=== PATIENT | male | born 1970 | race Caucasian/White ===

== ENCOUNTER 2016-11-19 16:15 | Inpatient (IN) | payer SELFPAY ==
[~2016-11-19] VITALS: Ht 175.3 cm; Wt 133.6 kg
--- NOTE | 2016-11-19 17:28 | PHYS DOC ---
Past Medical History Past Medical History: Diabetes-Type II Past Surgical History: Other Additional Past Surgical Histo: L hand,face reconstruction,bunion removed R great toe Alcohol Use: Occasionally Drug Use: None Adult General Chief Complaint Chief Complaint: ABSCESS HPI HPI Patient is a 45 year old M who presents with abscess to the right buttock. Patient states he's diabetic with blood sugars running between 200-300 and has a draining abscess to the right buttock that increased in size and pain. Patient states he's had fevers and chills for the past couple days. Patient denies any nausea/vomiting/diarrhea. Patient has no other symptoms. Review of Systems Review of Systems GEN: Denies fevers, chills, sweats HEENT: Denies blurred vision, sore throat CV: Denies chest pain RESP: Denies shortness of air, cough GI: Denies n/v/d NEURO: Denies confusion, dizziness MSK: Denies weakness, joint pain/swelling SKIN: Abscess to right buttock Current Medications Current Medications Current Medications Medications (Trade) Dose Ordered Sig/Janelle Start Time Stop Time Status Last Admin Dose Admin Fentanyl Citrate (Fentanyl 2ml Vial) 100 mcg STK-MED ONCE 11/19/16 18:38 11/19/16 18:39 DC Vancomycin HCl (Vanco Per Pharmacy) 1 each PRN DAILY PRN 11/19/16 17:15 11/19/16 19:05 1 EACH Vancomycin HCl 2 gm/Sodium Chloride 500 ml @ 250 mls/hr 1X ONCE 11/19/16 17:30 11/19/16 19:29 DC 11/19/16 17:48 250 MLS/HR Allergies Allergies Allergies Coded Allergies Type Severity Reaction Last Updated Verified No Known Drug Allergies 11/19/16 No Physical Exam Physical Exam GEN.: No apparent distress. Alert and oriented. HEENT: Head is normocephalic, atraumatic NECK: Supple. LUNGS: CTAB. HEART: RRR, S1, S2 present. Peripheral pulses intact ABDOMEN: Soft, nontender. Positive bowel sounds. EXTREMITIES: Without any cyanosis. NEUROLOGIC: Normal speech, normal tone PSYCHIATRIC: Normal affect, normal mood. SKIN: No ulcerations, abscess to the right buttock with approximately 8 cm of induration with tenderness palpation central drainage with purulent material coming out, no appreciable area of fluctuance Current Patient Data Vital Signs Vital Signs Date Time Temp Pulse Resp B/P (MAP) Pulse Ox O2 Delivery O2 Flow Rate FiO2 11/19/16 18:44 20 97 Room Air 11/19/16 18:20 90 133/86 (102) 11/19/16 16:20 98.1 98.1 Lab Values Laboratory Tests Test 11/19/16 17:22 White Blood Count 22.6 x10^3/uL (4.0-11.0) H Red Blood Count 4.87 x10^6/uL (4.30-5.70) Hemoglobin 14.2 g/dL (13.0-17.5) Hematocrit 42.4 % (39.0-53.0) Mean Corpuscular Volume 87 fL (79-100) Mean Corpuscular Hemoglobin 29 pg (25-35) Mean Corpuscular Hemoglobin Concent 34 g/dL (31-37) Red Cell Distribution Width 13.2 % (11.5-14.5) Platelet Count 213 x10^3/uL (140-400) Neutrophils (%) (Auto) 80 % (31-73) H Lymphocytes (%) (Auto) 9 % (24-48) L Monocytes (%) (Auto) 10 % (0-9) H Eosinophils (%) (Auto) 0 % (0-3) Basophils (%) (Auto) 1 % (0-3) Neutrophils # (Auto) 18.2 x10^3uL (1.8-7.7) H Lymphocytes # (Auto) 2.0 x10^3/uL (1.0-4.8) Monocytes # (Auto) 2.2 x10^3/uL (0.0-1.1) H Eosinophils # (Auto) 0.0 x10^3/uL (0.0-0.7) Basophils # (Auto) 0.2 x10^3/uL (0.0-0.2) Segmented Neutrophils % 73 % (35-66) H Band Neutrophils % 9 % (0-9) Lymphocytes % 8 % (24-48) L Monocytes % 9 % (0-10) Basophils % 1 % (0-3) Toxic Granulation Slight Platelet Estimate Adequate (ADEQUATE) Sodium Level 134 mmol/L (136-145) L Potassium Level 3.4 mmol/L (3.5-5.1) L Chloride Level 96 mmol/L (98-107) L Carbon Dioxide Level 28 mmol/L (21-32) Anion Gap 10 (6-14) Blood Urea Nitrogen 11 mg/dL (8-26) Creatinine 1.0 mg/dL (0.7-1.3) Estimated GFR (Cockcroft-Gault) 81.2 BUN/Creatinine Ratio 11 (6-20) Glucose Level 272 mg/dL (70-99) H Lactic Acid Level 2.0 mmol/L (0.4-2.0) Calcium Level 8.9 mg/dL (8.5-10.1) Total Bilirubin 1.0 mg/dL (0.2-1.0) Aspartate Amino Transferase (AST) 9 U/L (15-37) L Alanine Aminotransferase (ALT) 21 U/L (16-63) Alkaline Phosphatase 103 U/L (46-116) Total Protein 7.6 g/dL (6.4-8.2) Albumin 2.8 g/dL (3.4-5.0) L Albumin/Globulin Ratio 0.6 (1.0-1.7) L Laboratory Tests 11/19/16 17:22 Laboratory Tests 11/19/16 17:22 EKG EKG [] Radiology/Procedures Radiology/Procedures [] Course & Med Decision Making Course & Med Decision Making Pertinent Labs and Imaging studies reviewed. (See chart for details) ED course: Patient was seen and examined emergency room septic workup was ordered After evaluating the abscess is already draining there is no area of fluctuance that needs an I&D at this time patient will be worked up from a septic standpoint secondary to his diabetes and high risk 1840: Discussed CC/HP/PMH with Dr. Streeter and recommends admit and consult surgery 1850: Discussed CC/HP/PMH with Dr. Collins and recommends nothing by mouth after midnight and will take to the OR the morning, he did not want a CT scan or ultrasound of the abscess at this time. MDM: After reviewing the chart, CC/HPI/PMH, physical exam, [lab results], [ radiological results], the patient has a significant right buttock abscess is requiring admission and I&D by surgery. Patient was started on vancomycin. [] Dragon Disclaimer Dragon Disclaimer This electronic medical record was generated, in whole or in part, using a voice recognition dictation system. Departure Departure Impression: Primary Impression: Abscess of right buttock Additional Impression: Leukocytosis Disposition: 09 ADMITTED INPATIENT Admitting Physician: Other (Dr. Streeter) Condition: STABLE Referrals: JULIO JOAQUIN (PCP) Problem Qualifiers AMISH SOFIA DO Nov 19, 2016 17:28
[2016-11-19] MEDS ORDERED: VANCOMYCIN 2 GM in IV NORMAL SALINE 500ML BAG 500 ML IV ONE (17:30)
[2016-11-19 17:32] LABS: BASO # 0.2 x10^3/uL (0.0-0.2); BASO % 1 % (0-3); EOS % 0 % (0-3); HEMATOCRIT 42.4 % (39.0-53.0); HEMOGLOBIN 14.2 g/dL (13.0-17.5); LYMPH % 9 % (24-48); MEAN CORPUSCULAR HEMOGLOBIN 29 pg (25-35); MEAN CORPUSCULAR HGB CONC 34 g/dL (31-37); MEAN CORPUSCULAR VOLUME 87 fL (79-100); MONO % 10 % (0-9); NEUT % 80 % (31-73); PLATELET COUNT 213 x10^3/uL (140-400); RED BLOOD COUNT 4.87 x10^6/uL (4.30-5.70); RED CELL DISTRIBUTION WIDTH 13.2 % (11.5-14.5); WHITE BLOOD COUNT 22.6 x10^3/uL (4.0-11.0)
[2016-11-19 17:48] LABS: CALCIUM 8.9 mg/dL (8.5-10.1); GFR 81.2; POTASSIUM 3.4 mmol/L (3.5-5.1)
[2016-11-19 17:53] LABS: ALBUMIN 2.8 g/dL (3.4-5.0); ALBUMIN/GLOBULIN RATIO 0.6 (1.0-1.7); TOTAL PROTEIN 7.6 g/dL (6.4-8.2)
[2016-11-19 18:08] LABS: % BASOS 1 % (0-3); PLT ESTIMATE ADEQUATE (ADEQUATE); TOXIC GRANULATION SLIGHT
[2016-11-19] MEDS ORDERED: fentaNYL PF VIAL 100 MCG/2 ML VIAL ONE (18:38)
[2016-11-19] MEDS ORDERED: fentaNYL PF VIAL 100 MCG/2 ML VIAL IV ONE (18:45)
[2016-11-19] MEDS: VANCOMYCIN PER PHARMACY MC PRN (19:05)
[2016-11-19] MEDS ORDERED: MORPHINE SULFATE 4 MG/ML DISP.SYRIN. IV PRN ×2 (19:15→20:15)
[2016-11-19] MEDS ORDERED: ONDANSETRON PF 4 MG/2 ML VIAL. IV PRN (19:15)
[2016-11-19] MEDS ORDERED: DEXTROSE 50% 25 GM / 50ML DISP.SYRIN. IV PRN (20:15)
[2016-11-19] MEDS ORDERED: oxyCODONE/APAP 10/325 1 TAB TABLET PO PRN (20:15)
--- NOTE | 2016-11-19 20:46 | HP ---
ADMIT DATE: 11/19/2016 CHIEF COMPLAINT: Right buttock pain. HISTORY OF PRESENT ILLNESS: The patient is a 45-year-old obese gentleman with past medical history of diabetes who presented to the Emergency Room with a 4-day history of buttock pain. He relates that this started fairly suddenly on . Last day he had a small pimple that he popped in the area on Saturday. The pain got worse and worse and he finally decided to come to the Emergency Room. He affirms having had subjective fevers as well as chills. Denies any sweats, feels ill as if he is getting a flu for the past day or so. He relates that the area actually has been draining significantly. Denies any significant amount of blood with this, however. PAST MEDICAL HISTORY: Diabetes mellitus, hypertension, hypercholesterolemia, has been only on metformin due to lack of insurance. FAMILY HISTORY: Positive for diabetes, CAD. SOCIAL HISTORY: He is , currently without a job. No toxic habits. ALLERGIES: No known drug allergies. MEDICATIONS: MAR reconciled with home meds. REVIEW OF SYSTEMS: Positive as per HPI. Rest of organ system review is negative. PHYSICAL EXAMINATION: VITAL SIGNS: From today show a blood pressure of 133/86, heart rate of 90, respiratory rate at 20. He is afebrile. GENERAL: This is a 45-year-old morbidly obese gentleman, alert and oriented, in mild distress. HEENT: Shows no scleral icterus. NECK: Supple. LUNGS: Clear to auscultation bilaterally. HEART: Regular rate and rhythm. ABDOMEN: Obese, positive bowel sounds. Right buttock shows indurated area of approximately 5 cm surrounded by a large area of erythema, drainage site medially with yellow pus. EXTREMITIES: Show no edema. SKIN: Warm, soft, and dry without any rash. LABORATORY DATA: CBC with a WBC of 22.6, manual diff with 73% segmented neutrophils and 9% bands, hemoglobin at 14.2, platelets of 213. BUN and creatinine at 11 and 1.0. Electrolytes with sodium of 134, potassium 3.4. Normal LFTs. Albumin at 2.8. ASSESSMENT AND PLAN: The patient is a 45-year-old gentleman with right buttock abscess, now admitted for further management and care. Dr. Collins from surgery has been notified, will be evaluated tomorrow and probably requiring I and D. In the meantime, we will keep him on antibiotics with vancomycin. His symptoms generalized are consistent with SIRS, possible sepsis, although he does not display any hypotension or fevers at this time. Continue to monitor. For his diabetes, we will start insulin sliding scale for now. He does take metformin at home. Suspect that is not sufficient as he relates that his blood sugars are still in the upper 200s at home. Also, has been on hypertensive medications, which I suspect he needs not only for kidney protection as well as a statin. We will see if we can find medications that are fairly cheap for him. For prophylaxis, Lovenox will be started, but we will hold for tonight given plans for surgery in the morning. We will obtain hemoglobin A1c as well as lipid profile to further evaluate cardiac risk factors. AL AKERS MD DR: UR/nts JOB#: [id number] / [id number] JULIO Eric MD MTDD
[2016-11-19] MEDS: oxyCODONE/APAP 5/325 1 TAB TABLET PO PRN (20:49)
[2016-11-19 21:30] VITALS: BP 121/74
[2016-11-19] MEDS ORDERED: PANTOPRAZOLE 40 MG TABLET.DR. PO SCH (22:00)
[2016-11-19] MEDS ORDERED: INSULIN ASPART 300 UNITS/3 ML INSULN.PEN SQ ONE (22:15)
[2016-11-19] MEDS: PANTOPRAZOLE 40 MG TABLET.DR. PO SCH (22:22)
[2016-11-19 23:00] VITALS: BP 114/65
[2016-11-19] MEDS: ACETAMINOPHEN 325 MG TABLET. PO PRN (23:25)
[2016-11-20] VITALS (9 sets, daily range): BP systolic 109–138; BP diastolic 47–84
[2016-11-20] MEDS: oxyCODONE/APAP 5/325 1 TAB TABLET PO PRN ×3 (01:33→19:41)
[2016-11-20] MEDS: VANCOMYCIN 2 GM in IV NORMAL SALINE 500ML BAG 500 ML IV SCH ×3 (01:33→17:14)
[2016-11-20] MEDS: IV NORMAL SALINE 1000ML BAG 1,000 ML IV SCH ×3 (03:06→08:46)
[2016-11-20 05:19] LABS: BASO # 0.1 x10^3/uL (0.0-0.2); BASO % 0 % (0-3); EOS % 0 % (0-3); HEMATOCRIT 39.7 % (39.0-53.0); HEMOGLOBIN 13.9 g/dL (13.0-17.5); LYMPH # 1.7 x10^3/uL (1.0-4.8); LYMPH % 8 % (24-48); MEAN CORPUSCULAR HEMOGLOBIN 30 pg (25-35); MEAN CORPUSCULAR HGB CONC 35 g/dL (31-37); MEAN CORPUSCULAR VOLUME 86 fL (79-100); MONO % 9 % (0-9); NEUT % 83 % (31-73); PLATELET COUNT 185 x10^3/uL (140-400); RED BLOOD COUNT 4.63 x10^6/uL (4.30-5.70); RED CELL DISTRIBUTION WIDTH 12.7 % (11.5-14.5); WHITE BLOOD COUNT 21.7 x10^3/uL (4.0-11.0)
[2016-11-20 05:38] LABS: CALCIUM 8.6 mg/dL (8.5-10.1); GFR 81.2; POTASSIUM 3.7 mmol/L (3.5-5.1)
[2016-11-20] MEDS: ACETAMINOPHEN 325 MG TABLET. PO PRN (06:15)
[2016-11-20] MEDS: PANTOPRAZOLE 40 MG TABLET.DR. PO SCH ×2 (06:15→17:13)
[2016-11-20] MEDS: INSULIN ASPART 300 UNITS/3 ML INSULN.PEN SQ SCH ×3 (08:43→17:17)
[2016-11-20] MEDS ORDERED: IV RINGERS,LACTATED 1000ML 1,000 ML IV SCH (10:15)
[2016-11-20] MEDS ORDERED: PROCHLORPERAZINE 10 MG/2 ML VIAL. IV PRN (10:15)
[2016-11-20] MEDS ORDERED: fentaNYL PF VIAL 100 MCG/2 ML VIAL IV PRN (10:15)
[2016-11-20] MEDS ORDERED: LIDOCAINE 1% PF 2 ML VIAL. ID PRN (10:15)
[2016-11-20] MEDS ORDERED: ONDANSETRON PF 4 MG/2 ML VIAL. IV PRN (10:15)
[2016-11-20] MEDS ORDERED: MORPHINE SULFATE 4 MG/ML DISP.SYRIN. IV PRN (10:15)
[2016-11-20] MEDS ORDERED: SEVOFLURANE 61 TO 120 MINUTES. IH ONE (13:01)
[2016-11-20] MEDS ORDERED: MIDAZOLAM HCL/PF 2 MG/2 ML VIAL. ONE (13:03)
[2016-11-20] MEDS ORDERED: SUCCINYLCHOLINE 200 MG/10 ML VIAL. ONE (13:03)
[2016-11-20] MEDS ORDERED: fentaNYL PF VIAL 100 MCG/2 ML VIAL ONE ×2 (13:03→13:37)
[2016-11-20] MEDS ORDERED: DEXAMETHASONE SOD PHOS 20 MG/5 ML VIAL. ONE (13:04)
[2016-11-20] MEDS ORDERED: PROPOFOL 20 ML IV ONE (13:04)
[2016-11-20] MEDS ORDERED: ONDANSETRON PF 4 MG/2 ML VIAL. ONE (13:04)
[2016-11-20] MEDS ORDERED: LIDOCAINE 2% PF Vial for OR 5 ML VIAL. ONE (13:04)
--- NOTE | 2016-11-20 14:18 | PDOC ---
PROGRESS NOTES Chief Complaint Chief Complaint R buttock abscess ASSESSMENT AND PLAN: 1. R buttock abscess: s/p I&D earlier today. cont vanco. wound care in AM, prob switch to PO Abx 2. Pain control: IV/PO narcotics PRN. bowel regimen added. 3. Sepsis: leukocytosis, fevers, no hypotension or tachycardia. blood cultures pending. 4. DM2: poorly controlled at home with metformin only. Hgb 11.4. restart metformin, add glipizide. needs PCP F/U 5. HTN: restart DARÍO-I 6. Prophylaxis: PPI, lovenox in AM History of Present Illness History of Present Illness sore. no new issues Vitals Vitals Vital Signs Date Time Temp Pulse Resp B/P (MAP) Pulse Ox O2 Delivery O2 Flow Rate FiO2 11/20/16 11:24 98.9 111 20 126/83 97 Room Air 98.9 Physical Exam General: Alert, Cooperative, No acute distress Heart: Regular rate Lungs: Clear Abdomen: Normal bowel sounds, No tenderness Extremities: No clubbing, No edema Skin: Other (R buttock I&D covered w/gauze) Labs LABS Laboratory Tests Test 11/19/16 17:22 11/19/16 19:15 11/19/16 21:00 11/19/16 21:39 White Blood Count 22.6 x10^3/uL (4.0-11.0) Red Blood Count 4.87 x10^6/uL (4.30-5.70) Hemoglobin 14.2 g/dL (13.0-17.5) Hematocrit 42.4 % (39.0-53.0) Mean Corpuscular Volume 87 fL (79-100) Mean Corpuscular Hemoglobin 29 pg (25-35) Mean Corpuscular Hemoglobin Concent 34 g/dL (31-37) Red Cell Distribution Width 13.2 % (11.5-14.5) Platelet Count 213 x10^3/uL (140-400) Neutrophils (%) (Auto) 80 % (31-73) Lymphocytes (%) (Auto) 9 % (24-48) Monocytes (%) (Auto) 10 % (0-9) Eosinophils (%) (Auto) 0 % (0-3) Basophils (%) (Auto) 1 % (0-3) Neutrophils # (Auto) 18.2 x10^3uL (1.8-7.7) Lymphocytes # (Auto) 2.0 x10^3/uL (1.0-4.8) Monocytes # (Auto) 2.2 x10^3/uL (0.0-1.1) Eosinophils # (Auto) 0.0 x10^3/uL (0.0-0.7) Basophils # (Auto) 0.2 x10^3/uL (0.0-0.2) Segmented Neutrophils % 73 % (35-66) Band Neutrophils % 9 % (0-9) Lymphocytes % 8 % (24-48) Monocytes % 9 % (0-10) Basophils % 1 % (0-3) Toxic Granulation Slight Platelet Estimate Adequate (ADEQUATE) Sodium Level 134 mmol/L (136-145) Potassium Level 3.4 mmol/L (3.5-5.1) Chloride Level 96 mmol/L (98-107) Carbon Dioxide Level 28 mmol/L (21-32) Anion Gap 10 (6-14) Blood Urea Nitrogen 11 mg/dL (8-26) Creatinine 1.0 mg/dL (0.7-1.3) Estimated GFR (Cockcroft-Gault) 81.2 BUN/Creatinine Ratio 11 (6-20) Glucose Level 272 mg/dL (70-99) Hemoglobin A1c 11.4 % (4.8-5.6) Lactic Acid Level 2.0 mmol/L (0.4-2.0) 2.1 mmol/L (0.4-2.0) 1.8 mmol/L (0.4-2.0) Calcium Level 8.9 mg/dL (8.5-10.1) Total Bilirubin 1.0 mg/dL (0.2-1.0) Aspartate Amino Transf (AST/SGOT) 9 U/L (15-37) Alanine Aminotransferase (ALT/SGPT) 21 U/L (16-63) Alkaline Phosphatase 103 U/L (46-116) Total Protein 7.6 g/dL (6.4-8.2) Albumin 2.8 g/dL (3.4-5.0) Albumin/Globulin Ratio 0.6 (1.0-1.7) Glucose (Fingerstick) 264 mg/dL (70-99) Test 11/20/16 05:00 11/20/16 08:15 11/20/16 11:18 White Blood Count 21.7 x10^3/uL (4.0-11.0) Red Blood Count 4.63 x10^6/uL (4.30-5.70) Hemoglobin 13.9 g/dL (13.0-17.5) Hematocrit 39.7 % (39.0-53.0) Mean Corpuscular Volume 86 fL (79-100) Mean Corpuscular Hemoglobin 30 pg (25-35) Mean Corpuscular Hemoglobin Concent 35 g/dL (31-37) Red Cell Distribution Width 12.7 % (11.5-14.5) Platelet Count 185 x10^3/uL (140-400) Neutrophils (%) (Auto) 83 % (31-73) Lymphocytes (%) (Auto) 8 % (24-48) Monocytes (%) (Auto) 9 % (0-9) Eosinophils (%) (Auto) 0 % (0-3) Basophils (%) (Auto) 0 % (0-3) Neutrophils # (Auto) 18.1 x10^3uL (1.8-7.7) Lymphocytes # (Auto) 1.7 x10^3/uL (1.0-4.8) Monocytes # (Auto) 1.9 x10^3/uL (0.0-1.1) Eosinophils # (Auto) 0.0 x10^3/uL (0.0-0.7) Basophils # (Auto) 0.1 x10^3/uL (0.0-0.2) Sodium Level 134 mmol/L (136-145) Potassium Level 3.7 mmol/L (3.5-5.1) Chloride Level 97 mmol/L (98-107) Carbon Dioxide Level 27 mmol/L (21-32) Anion Gap 10 (6-14) Blood Urea Nitrogen 9 mg/dL (8-26) Creatinine 1.0 mg/dL (0.7-1.3) Estimated GFR (Cockcroft-Gault) 81.2 Glucose Level 244 mg/dL (70-99) Calcium Level 8.6 mg/dL (8.5-10.1) Glucose (Fingerstick) 238 mg/dL (70-99) 217 mg/dL (70-99) REUSCH,AL MD Nov 20, 2016 14:18
--- NOTE | 2016-11-20 14:21 | PDOC ---
BRIEF OPERATIVE NOTE Date: Nov 20, 2016 Pre-Op Diagnosis gluteal abscess Post-Op Diagnosis same Procedure Performed incision and drainage Surgeon William Anesthesia Type: General Blood Loss 25cc IV Fluid 400cc Specimens Obtained cultures Findings tract up towards the base of the scrotum Complications none OPerative Note Wk # [id number] KRISHNA HERNÁNDEZ MD Nov 20, 2016 14:20
--- NOTE | 2016-11-20 14:28 | PDOC2 ---
CONSULT Date of Consult Date of Consult DATE: 11/20/16 TIME: 10:00 Reason for Consult Reason for Consult: gluteal abscess Referring Physician Referring Physician: Dr Streeter Identification/Chief Complaint Chief Complaint right butt pain Problems: Source Source: Chart review, Patient History of Present Illness Reason for Visit: Malvin is a 45 yo obese diabetic with a five day hx of right buttock pain and drainage. He denies any similar previous episodes Past Medical History Cardiovascular: HTN Pulmonary: No pertinent hx GI: No pertinent hx Hepatobiliary: Other (hypercholesterolemia) Endocrine: Diabetes Past Surgical History Past Surgical History: No pertinent history Family History Family History: Coronary Artery Disease, Diabetes Social History Quit (two weeks ago) ALCOHOL: none Current Problem List Problem List Problems Medical Problems: (1) Abscess of right buttock Status: Acute (2) Leukocytosis Status: Acute Current Medications Current Medications Current Medications Vancomycin HCl (Vanco Per Pharmacy) 1 each PRN DAILY PRN MC SEE COMMENTS Last administered on 11/19/16 19:05; Start 11/19/16 at 17:15 Vancomycin HCl 2 gm/Sodium Chloride 500 ml @ 250 mls/hr 1X ONCE IV Last administered on 11/19/16 17:48; Start 11/19/16 at 17:30; Stop 11/19/16 at 19:29 ; Status DC Fentanyl Citrate (Fentanyl 2ml Vial) 50 mcg 1X ONCE IV Last administered on 18:44; Start 11/19/16 at 18:45; Stop 11/19/16 at 18:46; Status DC Fentanyl Citrate (Fentanyl 2ml Vial) 100 mcg STK-MED ONCE .ROUTE ; Start at 18:38; Stop 11/19/16 at 18:39; Status DC Vancomycin HCl 2 gm/Sodium Chloride 500 ml @ 250 mls/hr Q8H IV Last administered on 11/20/16 08:44; Start 11/20/16 at 02:00 Vancomycin HCl 1 each 1X ONCE MC ; Start 11/20/16 at 17:30; Stop 11/20/16 at 17 :31 Ondansetron HCl (Zofran) 4 mg PRN Q8HRS PRN IV NAUSEA/VOMITING; Start 11/19/16 at 19:15; Stop 11/20/16 at 19:14 Morphine Sulfate 4 mg PRN Q2HR PRN IV PAIN; Start 11/19/16 at 19:15; Stop 11/19 at 20:14; Status DC Sodium Chloride 1,000 ml @ 125 mls/hr Q8H IV Last administered on 11/20/16 08 :46; Start 11/19/16 at 19:06; Stop 11/20/16 at 19:05 Acetaminophen (Tylenol) 650 mg PRN Q4HRS PRN PO FEVER Last administered on 11/20 06:15; Start 11/19/16 at 19:15; Stop 11/20/16 at 19:14 Morphine Sulfate 2 mg PRN Q2HR PRN IV PAIN - 2nd choice; Start 11/19/16 at 20: 15 Oxycodone/ Acetaminophen (Percocet 5/325) 1 tab PRN Q4HRS PRN PO Pain 5-7 Last administered on 11/20/16 06:15; Start 11/19/16 at 20:15 Oxycodone/ Acetaminophen (Percocet 10/325) 1 tab PRN Q4HRS PRN PO pain 8-10; Start 11/19/16 at 20:15 Insulin Aspart (NovoLOG) 0-9 UNITS TIDWMEALS SQ Last administered on 11/20/16 08:43; Start 11/20/16 at 08:00 Dextrose (Dextrose 50%-Water Syringe) 12.5 gm PRN Q15MIN PRN IV SEE COMMENTS; Start 11/19/16 at 20:15 Pantoprazole Sodium (Protonix) 20 mg BIDAC PO Last administered on 11/20/16 06 :15; Start 11/19/16 at 22:15 Insulin Aspart (NovoLOG) 4 units 1X ONCE SQ Last administered on 11/19/16 23: 30; Start 11/19/16 at 22:15; Stop 11/19/16 at 22:16; Status DC Pantoprazole Sodium (Protonix) 20 mg BID PO ; Start 11/19/16 at 22:00; Status UNV Ondansetron HCl (Zofran) 4 mg PRN Q6HRS PRN IV NAUSEA/VOMITING; Start 11/20/16 at 10:15; Stop 11/21/16 at 10:14 Fentanyl Citrate (Fentanyl 2ml Vial) 25 mcg PRN Q5MIN PRN IV MILD PAIN; Start 11/20/16 at 10:15; Stop 11/21/16 at 10:14 Fentanyl Citrate (Fentanyl 2ml Vial) 50 mcg PRN Q5MIN PRN IV MODERATE PAIN; Start 11/20/16 at 10:15; Stop 11/21/16 at 10:14 Morphine Sulfate 1 mg PRN Q10MIN PRN IV SEVERE PAIN; Start 11/20/16 at 10:15; Stop 11/21/16 at 10:14 Ringer's Solution 1,000 ml @ 30 mls/hr Q24H IV ; Start 11/20/16 at 10:15; Stop 11/20/16 at 22:14 Lidocaine HCl (Xylocaine-Mpf 1% Vial) 2 ml 1X PRN PRN ID IV START; Start at 10:15; Stop 11/21/16 at 10:14 Hydromorphone HCl (Dilaudid) 0.5 mg PRN Q10MIN PRN IV SEV PAIN, Second choice; Start 11/20/16 at 10:15; Stop 11/21/16 at 10:14 Prochlorperazine Edisylate (Compazine) 5 mg PACU PRN PRN IV NAUSEA, MRX1; Start 11/20/16 at 10:15; Stop 11/21/16 at 10:14 Sevoflurane (Ultane) 60 ml STK-MED ONCE IH ; Start 11/20/16 at 13:01; Stop 11/20 at 13:03; Status DC Midazolam HCl (Versed) 2 mg STK-MED ONCE .ROUTE ; Start 11/20/16 at 13:03; Stop 11/20/16 at 13:04; Status DC Fentanyl Citrate (Fentanyl 2ml Vial) 100 mcg STK-MED ONCE .ROUTE ; Start at 13:03; Stop 11/20/16 at 13:04; Status DC Succinylcholine Chloride (Anectine) 200 mg STK-MED ONCE .ROUTE ; Start 11/20/16 at 13:03; Stop 11/20/16 at 13:04; Status DC Propofol 20 ml @ As Directed STK-MED ONCE IV ; Start 11/20/16 at 13:04; Stop at 13:05; Status DC Lidocaine HCl (Lidocaine Pf 2% Vial) 5 ml STK-MED ONCE .ROUTE ; Start 11/20/16 at 13:04; Stop 11/20/16 at 13:05; Status DC Ondansetron HCl (Zofran) 4 mg STK-MED ONCE .ROUTE ; Start 11/20/16 at 13:04; Stop 11/20/16 at 13:05; Status DC Dexamethasone Sodium Phosphate (Decadron) 20 mg STK-MED ONCE .ROUTE ; Start at 13:04; Stop 11/20/16 at 13:05; Status DC Fentanyl Citrate (Fentanyl 2ml Vial) 100 mcg STK-MED ONCE .ROUTE ; Start at 13:37; Stop 11/20/16 at 13:38; Status DC Allergies Allergies: Coded Allergies: No Known Drug Allergies (Unverified , 11/19/16) ROS General: YES: Chills Physical Exam General: Alert, Oriented X3, Cooperative, Other (uncomfortable 2/2 right gluteal pain) Lungs: Other (occasional wheeze) Heart: Regular rate Abdomen: Soft, Other (obese) Vitals VITALS Vital Signs Date Time Temp Pulse Resp B/P (MAP) Pulse Ox O2 Delivery O2 Flow Rate FiO2 11/20/16 11:24 98.9 111 20 126/83 97 Room Air 98.9 Labs Labs Laboratory Tests Test 11/19/16 17:22 11/19/16 19:15 11/19/16 21:00 11/19/16 21:39 White Blood Count 22.6 x10^3/uL (4.0-11.0) Red Blood Count 4.87 x10^6/uL (4.30-5.70) Hemoglobin 14.2 g/dL (13.0-17.5) Hematocrit 42.4 % (39.0-53.0) Mean Corpuscular Volume 87 fL (79-100) Mean Corpuscular Hemoglobin 29 pg (25-35) Mean Corpuscular Hemoglobin Concent 34 g/dL (31-37) Red Cell Distribution Width 13.2 % (11.5-14.5) Platelet Count 213 x10^3/uL (140-400) Neutrophils (%) (Auto) 80 % (31-73) Lymphocytes (%) (Auto) 9 % (24-48) Monocytes (%) (Auto) 10 % (0-9) Eosinophils (%) (Auto) 0 % (0-3) Basophils (%) (Auto) 1 % (0-3) Neutrophils # (Auto) 18.2 x10^3uL (1.8-7.7) Lymphocytes # (Auto) 2.0 x10^3/uL (1.0-4.8) Monocytes # (Auto) 2.2 x10^3/uL (0.0-1.1) Eosinophils # (Auto) 0.0 x10^3/uL (0.0-0.7) Basophils # (Auto) 0.2 x10^3/uL (0.0-0.2) Segmented Neutrophils % 73 % (35-66) Band Neutrophils % 9 % (0-9) Lymphocytes % 8 % (24-48) Monocytes % 9 % (0-10) Basophils % 1 % (0-3) Toxic Granulation Slight Platelet Estimate Adequate (ADEQUATE) Sodium Level 134 mmol/L (136-145) Potassium Level 3.4 mmol/L (3.5-5.1) Chloride Level 96 mmol/L (98-107) Carbon Dioxide Level 28 mmol/L (21-32) Anion Gap 10 (6-14) Blood Urea Nitrogen 11 mg/dL (8-26) Creatinine 1.0 mg/dL (0.7-1.3) Estimated GFR (Cockcroft-Gault) 81.2 BUN/Creatinine Ratio 11 (6-20) Glucose Level 272 mg/dL (70-99) Hemoglobin A1c 11.4 % (4.8-5.6) Lactic Acid Level 2.0 mmol/L (0.4-2.0) 2.1 mmol/L (0.4-2.0) 1.8 mmol/L (0.4-2.0) Calcium Level 8.9 mg/dL (8.5-10.1) Total Bilirubin 1.0 mg/dL (0.2-1.0) Aspartate Amino Transf (AST/SGOT) 9 U/L (15-37) Alanine Aminotransferase (ALT/SGPT) 21 U/L (16-63) Alkaline Phosphatase 103 U/L (46-116) Total Protein 7.6 g/dL (6.4-8.2) Albumin 2.8 g/dL (3.4-5.0) Albumin/Globulin Ratio 0.6 (1.0-1.7) Glucose (Fingerstick) 264 mg/dL (70-99) Test 11/20/16 05:00 11/20/16 08:15 11/20/16 11:18 White Blood Count 21.7 x10^3/uL (4.0-11.0) Red Blood Count 4.63 x10^6/uL (4.30-5.70) Hemoglobin 13.9 g/dL (13.0-17.5) Hematocrit 39.7 % (39.0-53.0) Mean Corpuscular Volume 86 fL (79-100) Mean Corpuscular Hemoglobin 30 pg (25-35) Mean Corpuscular Hemoglobin Concent 35 g/dL (31-37) Red Cell Distribution Width 12.7 % (11.5-14.5) Platelet Count 185 x10^3/uL (140-400) Neutrophils (%) (Auto) 83 % (31-73) Lymphocytes (%) (Auto) 8 % (24-48) Monocytes (%) (Auto) 9 % (0-9) Eosinophils (%) (Auto) 0 % (0-3) Basophils (%) (Auto) 0 % (0-3) Neutrophils # (Auto) 18.1 x10^3uL (1.8-7.7) Lymphocytes # (Auto) 1.7 x10^3/uL (1.0-4.8) Monocytes # (Auto) 1.9 x10^3/uL (0.0-1.1) Eosinophils # (Auto) 0.0 x10^3/uL (0.0-0.7) Basophils # (Auto) 0.1 x10^3/uL (0.0-0.2) Sodium Level 134 mmol/L (136-145) Potassium Level 3.7 mmol/L (3.5-5.1) Chloride Level 97 mmol/L (98-107) Carbon Dioxide Level 27 mmol/L (21-32) Anion Gap 10 (6-14) Blood Urea Nitrogen 9 mg/dL (8-26) Creatinine 1.0 mg/dL (0.7-1.3) Estimated GFR (Cockcroft-Gault) 81.2 Glucose Level 244 mg/dL (70-99) Calcium Level 8.6 mg/dL (8.5-10.1) Glucose (Fingerstick) 238 mg/dL (70-99) 217 mg/dL (70-99) Laboratory Tests Test 11/19/16 17:22 11/19/16 19:15 11/19/16 21:00 11/19/16 21:39 White Blood Count 22.6 x10^3/uL (4.0-11.0) Red Blood Count 4.87 x10^6/uL (4.30-5.70) Hemoglobin 14.2 g/dL (13.0-17.5) Hematocrit 42.4 % (39.0-53.0) Mean Corpuscular Volume 87 fL (79-100) Mean Corpuscular Hemoglobin 29 pg (25-35) Mean Corpuscular Hemoglobin Concent 34 g/dL (31-37) Red Cell Distribution Width 13.2 % (11.5-14.5) Platelet Count 213 x10^3/uL (140-400) Neutrophils (%) (Auto) 80 % (31-73) Lymphocytes (%) (Auto) 9 % (24-48) Monocytes (%) (Auto) 10 % (0-9) Eosinophils (%) (Auto) 0 % (0-3) Basophils (%) (Auto) 1 % (0-3) Neutrophils # (Auto) 18.2 x10^3uL (1.8-7.7) Lymphocytes # (Auto) 2.0 x10^3/uL (1.0-4.8) Monocytes # (Auto) 2.2 x10^3/uL (0.0-1.1) Eosinophils # (Auto) 0.0 x10^3/uL (0.0-0.7) Basophils # (Auto) 0.2 x10^3/uL (0.0-0.2) Segmented Neutrophils % 73 % (35-66) Band Neutrophils % 9 % (0-9) Lymphocytes % 8 % (24-48) Monocytes % 9 % (0-10) Basophils % 1 % (0-3) Toxic Granulation Slight Platelet Estimate Adequate (ADEQUATE) Sodium Level 134 mmol/L (136-145) Potassium Level 3.4 mmol/L (3.5-5.1) Chloride Level 96 mmol/L (98-107) Carbon Dioxide Level 28 mmol/L (21-32) Anion Gap 10 (6-14) Blood Urea Nitrogen 11 mg/dL (8-26) Creatinine 1.0 mg/dL (0.7-1.3) Estimated GFR (Cockcroft-Gault) 81.2 BUN/Creatinine Ratio 11 (6-20) Glucose Level 272 mg/dL (70-99) Hemoglobin A1c 11.4 % (4.8-5.6) Lactic Acid Level 2.0 mmol/L (0.4-2.0) 2.1 mmol/L (0.4-2.0) 1.8 mmol/L (0.4-2.0) Calcium Level 8.9 mg/dL (8.5-10.1) Total Bilirubin 1.0 mg/dL (0.2-1.0) Aspartate Amino Transf (AST/SGOT) 9 U/L (15-37) Alanine Aminotransferase (ALT/SGPT) 21 U/L (16-63) Alkaline Phosphatase 103 U/L (46-116) Total Protein 7.6 g/dL (6.4-8.2) Albumin 2.8 g/dL (3.4-5.0) Albumin/Globulin Ratio 0.6 (1.0-1.7) Glucose (Fingerstick) 264 mg/dL (70-99) Test 11/20/16 05:00 11/20/16 08:15 11/20/16 11:18 White Blood Count 21.7 x10^3/uL (4.0-11.0) Red Blood Count 4.63 x10^6/uL (4.30-5.70) Hemoglobin 13.9 g/dL (13.0-17.5) Hematocrit 39.7 % (39.0-53.0) Mean Corpuscular Volume 86 fL (79-100) Mean Corpuscular Hemoglobin 30 pg (25-35) Mean Corpuscular Hemoglobin Concent 35 g/dL (31-37) Red Cell Distribution Width 12.7 % (11.5-14.5) Platelet Count 185 x10^3/uL (140-400) Neutrophils (%) (Auto) 83 % (31-73) Lymphocytes (%) (Auto) 8 % (24-48) Monocytes (%) (Auto) 9 % (0-9) Eosinophils (%) (Auto) 0 % (0-3) Basophils (%) (Auto) 0 % (0-3) Neutrophils # (Auto) 18.1 x10^3uL (1.8-7.7) Lymphocytes # (Auto) 1.7 x10^3/uL (1.0-4.8) Monocytes # (Auto) 1.9 x10^3/uL (0.0-1.1) Eosinophils # (Auto) 0.0 x10^3/uL (0.0-0.7) Basophils # (Auto) 0.1 x10^3/uL (0.0-0.2) Sodium Level 134 mmol/L (136-145) Potassium Level 3.7 mmol/L (3.5-5.1) Chloride Level 97 mmol/L (98-107) Carbon Dioxide Level 27 mmol/L (21-32) Anion Gap 10 (6-14) Blood Urea Nitrogen 9 mg/dL (8-26) Creatinine 1.0 mg/dL (0.7-1.3) Estimated GFR (Cockcroft-Gault) 81.2 Glucose Level 244 mg/dL (70-99) Calcium Level 8.6 mg/dL (8.5-10.1) Glucose (Fingerstick) 238 mg/dL (70-99) 217 mg/dL (70-99) Assessment/Plan Assessment/Plan gluteal abscess, cellulitis diabetes to OR for I and D. Discussed with Malvin and his , he will have an open wound that may require daily packing. He understands and will proceedl Thanks for the consult. KRISHNA HERNÁNDEZ MD Nov 20, 2016 14:28
[2016-11-20] MEDS: fentaNYL PF VIAL 100 MCG/2 ML VIAL IV PRN ×2 (14:36→14:48)
[2016-11-20 14:42] LABS: CHOLESTEROL/HDL RATIO 5.8
--- NOTE | 2016-11-20 14:50 | OP ---
DATE OF SURGERY: 11/20/2016 PREOPERATIVE DIAGNOSIS: Right gluteal abscess. POSTOPERATIVE DIAGNOSIS: Right gluteal abscess. PROCEDURE: Incision and drainage. SURGEON: Jamel Hernández MD ANESTHESIA: General. ESTIMATED BLOOD LOSS: 25. INTRAVENOUS FLUIDS: 400. INDICATIONS: The patient is a 45-year-old obese diabetic with pain, erythema, induration and minimal fluctuance on the right gluteal area. He was brought for incision and drainage. DESCRIPTION OF PROCEDURE: The patient brought to the operating suite, given a general LMA, placed in the dorsal lithotomy position and the right buttocks and perianal area were prepped and draped in usual sterile fashion. The area that had become a point for drainage was probed with a hemostat and incised. This allowed digital exploration proximally up towards the base of the scrotum. A counter incision was made. Cultures were obtained. A Jonathan drain was inserted through the cavity and secured with a silk stitch. The wound was then irrigated and checked for hemostasis. When present and a correct sponge count was obtained, one-half inch plain Nu Gauze was packed in the each of the openings. Good hemostasis was present. Sterile dressing applied. The patient taken out of the lithotomy position, awakened from his anesthetic and taken to the recovery room in satisfactory condition. JAMEL HERNÁNDEZ MD DR: JOE/johanna JOB#: [id number] / [id number]
[2016-11-20] MEDS: HYDROmorphone 2 MG/ML VIAL IV PRN ×2 (14:54→15:05)
[2016-11-20 17:44] LABS: BASO # 0.1 x10^3/uL (0.0-0.2); BASO % 0 % (0-3); EOS % 0 % (0-3); HEMATOCRIT 39.5 % (39.0-53.0); HEMOGLOBIN 13.3 g/dL (13.0-17.5); LYMPH # 0.9 x10^3/uL (1.0-4.8); LYMPH % 4 % (24-48); MEAN CORPUSCULAR HEMOGLOBIN 30 pg (25-35); MEAN CORPUSCULAR HGB CONC 34 g/dL (31-37); MEAN CORPUSCULAR VOLUME 88 fL (79-100); MONO % 5 % (0-9); NEUT % 91 % (31-73); PLATELET COUNT 186 x10^3/uL (140-400); RED BLOOD COUNT 4.51 x10^6/uL (4.30-5.70); RED CELL DISTRIBUTION WIDTH 13.2 % (11.5-14.5); WHITE BLOOD COUNT 23.6 x10^3/uL (4.0-11.0)
[2016-11-20 18:29] LABS: CALCIUM 8.6 mg/dL (8.5-10.1); CREATININE 0.9 mg/dL (0.7-1.3); GFR 91.7
[2016-11-21] MEDS ORDERED: INSULIN ASPART 300 UNITS/3 ML INSULN.PEN SQ ONE (01:00)
[2016-11-21] MEDS: oxyCODONE/APAP 5/325 1 TAB TABLET PO PRN ×2 (01:02→05:42)
[2016-11-21] MEDS: VANCOMYCIN 1.75 GM in IV NORMAL SALINE 500ML BAG 500 ML IV SCH ×3 (02:04→14:00)
[2016-11-21] MEDS: VANCOMYCIN PER PHARMACY MC PRN ×2 (02:22→02:29)
[2016-11-21 02:38] VITALS: BP 115/89
[2016-11-21] MEDS: PANTOPRAZOLE 40 MG TABLET.DR. PO SCH ×2 (05:42→16:30)
[2016-11-21 07:00] VITALS: BP 102/68
[2016-11-21] MEDS: INSULIN ASPART 300 UNITS/3 ML INSULN.PEN SQ SCH ×3 (09:04→17:00)
[2016-11-21] MEDS: oxyCODONE/APAP 10/325 1 TAB TABLET PO PRN ×2 (10:01→14:04)
[2016-11-21 11:00] VITALS: BP 129/80
[2016-11-21] MEDS ORDERED: CEPH-264 PO (11:11)
[2016-11-21] MEDS ORDERED: OXYC1TAB7 PO (11:11)
[2016-11-21] MEDS ORDERED: METF-620 PO (11:14)
[2016-11-21] MEDS ORDERED: GLIP10TA13 PO (11:17)
[2016-11-21 15:00] VITALS: BP 107/70
--- NOTE | 2016-11-22 01:19 | DS ---
DATE OF DISCHARGE: 11/21/2016 CHIEF COMPLAINT: Right buttock abscess. HOSPITAL COURSE: The patient is a 46-year-old obese gentleman with diabetes and hypertension who presented to the Emergency Room with 4-day history of a developing right buttock abscess. This was extremely painful indurated and the patient was taken for incision and drainage on 11/20/[address] Thomas. Pain was controlled with IV and later p.o. antibiotics. Bowel regimen was added to prevent constipation. He was continued on antibiotics and switched to Keflex at time of discharge. The patient has known diabetes mellitus, hypertension and for neither of which he was taking medications due to lapse of insurance coverage when he lost his job. Hemoglobin A1c was actually 11.4 and he was restarted on metformin and given a prescription for glipizide as well for adjustment. He was strongly advised to follow up with his primary care physician. For his high blood pressure, he was restarted on lisinopril 10 mg. This also may require further titration. DISCHARGE DIAGNOSES: Right buttock abscess. DISCHARGE DISPOSITION: To home. DISCHARGE CONDITION: Improved. DISCHARGE MEDICATIONS: Please refer to MAR. DISCHARGE INSTRUCTIONS: The patient will follow up with wound care clinic and Dr. Thomas in the next 2 weeks. He will follow up with his primary care physician for diabetes and hypertension. AL AKERS MD DR: UR/nts JOB#: [id number] / [id number] JULIO Eric MD MTDD
== END 2016-11-21 18:00 | disposition home or self-care (01) | DRG 854 ==
LOC: ER 16:15 → 4 NORTH 19:05
PROVIDERS: ADMIT Internal Medicine Hematology & Oncology; ATTEND Internal Medicine Hematology & Oncology
PROC: 0J990ZZ Drainage of Buttock Subcutaneous Tissue and Fascia, Open Approach (ICD-10-PCS; principal; 2016-11-20 12:00)
DX: A41.9 Sepsis, unspecified organism (principal); E44.0 Moderate protein-calorie malnutrition; Z68.41 Body mass index [BMI] 40.0-44.9, adult; I10 Essential (primary) hypertension; L02.31 Cutaneous abscess of buttock; E11.9 Type 2 diabetes mellitus without complications; L03.317 Cellulitis of buttock; E66.9 Obesity, unspecified; E78.00 Pure hypercholesterolemia, unspecified; Z79.899 Other long term (current) drug therapy; Z82.49 Family history of ischemic heart disease and other diseases of the circulatory system; Z83.3 Family history of diabetes mellitus
CPT/HCPCS: 36415; 80048; 80053; 80061; 80202; 82962; 83036; 83605; 85007; 85025; 87040; 87071; 87075; 87205; 96365; 96366; 96375; J0330; J1100; J1170; J2250; J2270; J2405; J2704; J3010; J3370; J7030; J7040; 99285-25; J2001

== ENCOUNTER 2016-11-23 13:33 | Inpatient (IN) | payer SELFPAY ==
[~2016-11-23] VITALS: Ht 175.3 cm; Wt 132.9 kg
[~2016-11-23 13:33] MED LIST: CEPH-264 PO; GLIP10TA13 PO; METF-620 PO; OXYC1TAB7 PO
--- NOTE | 2016-11-23 14:17 | PHYS DOC ---
Past Medical History Past Medical History: Diabetes-Type II Past Surgical History: Other Additional Past Surgical Histo: L hand,face reconstruction,bunion removed R great toe Alcohol Use: Occasionally Drug Use: None Adult General Chief Complaint Chief Complaint: ABSCESS HPI HPI Patient is a 46 year old male with a history of diabetes and hypertension who presents with subjective fevers and purulent discharge out of his abscess that he had opened on the by Dr. Thomas. States he's been having increasing pain in his right buttocks area in addition to ambulate to urinate over the last 2 days he's been eating small amounts frequently. He also complains of not having a bowel movement since Saturday. He has been taking narcotic pain medicine in addition to his antibiotics. Review of Systems Review of Systems Constitutional: Denies fever or chills [] Eyes: Denies change in visual acuity, redness, or eye pain [] HENT: Denies nasal congestion or sore throat [] Respiratory: Denies cough or shortness of breath [] Cardiovascular: No additional information not addressed in HPI [] GI: Denies abdominal pain, nausea, vomiting, bloody stools or diarrhea [] : Denies dysuria or hematuria [] Musculoskeletal: Denies back pain or joint pain [] Integument: Denies induration and tenderness palpation over the right buttocks where previous I&D's been performed Neurologic: Denies headache, focal weakness or sensory changes [] Endocrine: Denies polyuria or polydipsia [] Current Medications Current Medications Current Medications Medications (Trade) Dose Ordered Sig/Janelle Start Time Stop Time Status Last Admin Dose Admin Morphine Sulfate 2 mg PRN Q2HR PRN 11/23/16 16:00 11/24/16 15:59 Ondansetron HCl (Zofran) 4 mg PRN Q8HRS PRN 11/23/16 16:00 11/24/16 15:59 Sodium Chloride 1,000 ml @ 1,000 mls/hr Q1H 11/23/16 14:19 11/23/16 15:18 DC 11/23/16 15:40 1,000 MLS/HR Vancomycin HCl (Vanco Per Pharmacy) 1 each PRN DAILY PRN 11/23/16 15:00 UNV Vancomycin HCl 2 gm/Sodium Chloride 500 ml @ 250 mls/hr 1X ONCE 11/23/16 15:00 11/23/16 16:59 11/23/16 15:40 250 MLS/HR Allergies Allergies Allergies Coded Allergies Type Severity Reaction Last Updated Verified No Known Drug Allergies 11/19/16 No Physical Exam Physical Exam Constitutional: Well developed, well nourished, no acute distress, non-toxic appearance. [] HENT: Normocephalic, atraumatic, bilateral external ears normal, oropharynx moist, no oral exudates, nose normal. [] Eyes: PERRLA, EOMI, conjunctiva normal, no discharge. [] Neck: Normal range of motion, no tenderness, supple, no stridor. [] Cardiovascular:Heart rate regular rhythm, no murmur [] Lungs & Thorax: Bilateral breath sounds clear to auscultation [] Abdomen: Bowel sounds normal, soft, no tenderness, no masses, no pulsatile masses. [] Skin: Warm, dry, erythema over the right buttocks where previous I&D performed, mild tender to palpation diffusely across erythema Back: No tenderness, no CVA tenderness. [] Extremities: No tenderness, no cyanosis, no clubbing, ROM intact, no edema. [] Neurologic: Alert and oriented X 3, normal motor function, normal sensory function, no focal deficits noted. [] Psychologic: Affect normal, judgement normal, mood normal. [] Current Patient Data Vital Signs Vital Signs Date Time Temp Pulse Resp B/P (MAP) Pulse Ox O2 Delivery O2 Flow Rate FiO2 11/23/16 13:45 97.8 99 20 96 Room Air 97.8 Lab Values Laboratory Tests Test 11/23/16 13:50 11/23/16 14:19 Urine Color Yellow Urine Clarity Clear Urine pH 6.5 Urine Specific [place] 1.010 Urine Protein Negative mg/dL (NEG-TRACE) Urine Glucose (UA) 100 mg/dL (NEG) Urine Ketones (Stick) 40 mg/dL (NEG) Urine Blood Negative (NEG) Urine Nitrite Negative (NEG) Urine Bilirubin Negative (NEG) Urine Urobilinogen Dipstick 1.0 mg/dL (0.2 mg/dL) Urine Leukocyte Esterase Negative (NEG) Urine RBC 0 /HPF (0-2) Urine WBC Occ /HPF (0-4) Urine Squamous Epithelial Cells Occ /LPF Urine Bacteria 0 /HPF (0-FEW) White Blood Count 26.3 x10^3/uL (4.0-11.0) H Red Blood Count 4.14 x10^6/uL (4.30-5.70) L Hemoglobin 12.2 g/dL (13.0-17.5) L Hematocrit 36.4 % (39.0-53.0) L Mean Corpuscular Volume 88 fL (79-100) Mean Corpuscular Hemoglobin 30 pg (25-35) Mean Corpuscular Hemoglobin Concent 34 g/dL (31-37) Red Cell Distribution Width 13.8 % (11.5-14.5) Platelet Count 241 x10^3/uL (140-400) Neutrophils (%) (Auto) 85 % (31-73) H Lymphocytes (%) (Auto) 7 % (24-48) L Monocytes (%) (Auto) 7 % (0-9) Eosinophils (%) (Auto) 0 % (0-3) Basophils (%) (Auto) 1 % (0-3) Neutrophils # (Auto) 22.2 x10^3uL (1.8-7.7) H Lymphocytes # (Auto) 1.9 x10^3/uL (1.0-4.8) Monocytes # (Auto) 1.9 x10^3/uL (0.0-1.1) H Eosinophils # (Auto) 0.0 x10^3/uL (0.0-0.7) Basophils # (Auto) 0.2 x10^3/uL (0.0-0.2) Platelet Estimate Pending Sodium Level 135 mmol/L (136-145) L Potassium Level 3.3 mmol/L (3.5-5.1) L Chloride Level 98 mmol/L (98-107) Carbon Dioxide Level 26 mmol/L (21-32) Anion Gap 11 (6-14) Blood Urea Nitrogen 10 mg/dL (8-26) Creatinine 0.8 mg/dL (0.7-1.3) Estimated GFR (Cockcroft-Gault) 104.5 Glucose Level 184 mg/dL (70-99) H Lactic Acid Level 1.5 mmol/L (0.4-2.0) Calcium Level 8.6 mg/dL (8.5-10.1) Total Bilirubin 0.4 mg/dL (0.2-1.0) Direct Bilirubin 0.1 mg/dL (0.0-0.2) Aspartate Amino Transferase (AST) 29 U/L (15-37) Alanine Aminotransferase (ALT) 39 U/L (16-63) Alkaline Phosphatase 115 U/L (46-116) Total Protein 6.5 g/dL (6.4-8.2) Albumin 1.8 g/dL (3.4-5.0) L Laboratory Tests 11/23/16 14:19 Laboratory Tests 11/23/16 14:19 EKG EKG [] Radiology/Procedures Radiology/Procedures [facility] [address] [place] [address] IMAGING REPORT Signed PATIENT: ROBERT ROSE ACCOUNT: [id number] : 1970 LOCATION: ER AGE: 46 SEX: M EXAM STATUS: REG ER ORD. PHYSICIAN: AMIRA JAIMES MD REASON: right buttock abscess, please us buttocks. PROCEDURE: PELVIS ULTRASOUND Examination: Ultrasound right buttock History: History of right buttock abscess Comparison: None available Findings: In the region of the right buttock, there is a 2.3 x 1.1 cm heterogeneous echogenicity likely phlegmonous change or soft tissue infection with surrounding edema. An obvious fluid collection to suggest an abscess is not identified. Impression: 1. 2.3 cm heterogeneous echogenicity identified within the soft tissue of the right buttock likely soft tissue infection or phlegmonous change without obvious drainable fluid collection. DICTATED and SIGNED BY: GONZÁLEZ LATHAM MD DATE: 11/23/16 0170 CC: AMIRA JAIMES MD; JULIO JOAQUIN ~ Impressions: Cellulitis EKG fevers Urinary retention Course & Med Decision Making Course & Med Decision Making Pertinent Labs and Imaging studies reviewed. (See chart for details) Whyte catheter was placed and over 1000 MLS of urine was obtained. The patient' s pain substantially improved after this. He is slightly tachycardic and received IV fluid. He has a leukocytosis without fever. He started on vancomycin and we'll admit. Spoke with Dr. Thomas who once an ultrasound of his buttocks to see if there is any hidden pockets. Ultrasounds pending at this time. Patient's being admitted to Dr. Yoandy Roman Disclaimer Jessie Disclaimer This electronic medical record was generated, in whole or in part, using a voice recognition dictation system. Departure Departure Impression: Primary Impression: Cellulitis Disposition: ADMITTED INPATIENT Admitting Physician: Lucy Cramer Condition: STABLE Referrals: JULIO JOAQUIN (PCP) Problem Qualifiers Primary Impression: Cellulitis Site of cellulitis: buttock Qualified Codes: L03.317 - Cellulitis of buttock AMIRA JAIMES MD Nov 23, 2016 14:17
[2016-11-23 14:31] LABS: BASO # 0.2 x10^3/uL (0.0-0.2); BASO % 1 % (0-3); EOS % 0 % (0-3); HEMATOCRIT 36.4 % (39.0-53.0); HEMOGLOBIN 12.2 g/dL (13.0-17.5); LYMPH # 1.9 x10^3/uL (1.0-4.8); LYMPH % 7 % (24-48); MEAN CORPUSCULAR HEMOGLOBIN 30 pg (25-35); MEAN CORPUSCULAR HGB CONC 34 g/dL (31-37); MEAN CORPUSCULAR VOLUME 88 fL (79-100); MONO % 7 % (0-9); NEUT % 85 % (31-73); PLATELET COUNT 241 x10^3/uL (140-400); RED BLOOD COUNT 4.14 x10^6/uL (4.30-5.70); RED CELL DISTRIBUTION WIDTH 13.8 % (11.5-14.5); WHITE BLOOD COUNT 26.3 x10^3/uL (4.0-11.0)
[2016-11-23 14:34] LABS: BILIRUBIN,URINE NEGATIVE (NEG); GLUCOSE,URINE 100 mg/dL (NEG); NITRITE,URINE NEGATIVE (NEG); PH,URINE 6.5; PROTEIN,URINE NEGATIVE (NEG-TRACE)
[2016-11-23 14:48] LABS: CALCIUM 8.6 mg/dL (8.5-10.1); CREATININE 0.8 mg/dL (0.7-1.3); GFR 104.5; POTASSIUM 3.3 mmol/L (3.5-5.1)
[2016-11-23 14:51] LABS: BACTERIA,URINE 0 /HPF (0-FEW); RBC,URINE 0 /HPF (0-2); SQUAMOUS EPITHELIAL CELL,UR OCC /LPF; WBC,URINE OCC /HPF (0-4)
[2016-11-23 14:56] LABS: ALBUMIN 1.8 g/dL (3.4-5.0); DIRECT BILIRUBIN 0.1 mg/dL (0.0-0.2); TOTAL BILIRUBIN 0.4 mg/dL (0.2-1.0); TOTAL PROTEIN 6.5 g/dL (6.4-8.2)
[2016-11-23] MEDS ORDERED: VANCOMYCIN PER PHARMACY MC PRN (15:00)
[2016-11-23] MEDS ORDERED: VANCOMYCIN 2 GM in IV NORMAL SALINE 500ML BAG 500 ML IV ONE (15:00)
[2016-11-23] MEDS: IV NORMAL SALINE 1000ML BAG 1,000 ML IV SCH ×2 (15:40→18:54)
[2016-11-23] MEDS ORDERED: ONDANSETRON PF 4 MG/2 ML VIAL. IV PRN ×2 (16:00→17:00)
--- NOTE | 2016-11-23 16:38 | RAD ---
Examination: Ultrasound right buttock History: History of right buttock abscess Comparison: None available Findings: In the region of the right buttock, there is a 2.3 x 1.1 cm heterogeneous echogenicity likely phlegmonous change or soft tissue infection with surrounding edema. An obvious fluid collection to suggest an abscess is not identified. Impression: 1. 2.3 cm heterogeneous echogenicity identified within the soft tissue of the right buttock likely soft tissue infection or phlegmonous change without obvious drainable fluid collection.
[2016-11-23] MEDS ORDERED: DEXTROSE 50% 25 GM / 50ML DISP.SYRIN. IV PRN (17:00)
[2016-11-23 17:07] LABS: % EOS 1 % (0-5)
--- NOTE | 2016-11-23 17:08 | PDOC1 ---
History and Physical Date of Admission Date of Admission DATE: 11/23/16 TIME: 17:01 Identification/Chief Complaint Chief Complaint buttock pain and wound Problems: Source Source: Caregiver, Chart review, Patient History of Present Illness History of Present Illness 46 y.o obese male with uncontrolled DM hgba1c 11, was just dcd for buttock abscess, I and D by sx done on 11/20 with indwelling lexi drain? He has lexi drain as I inspect his left cheek buttock at ER which is very indurated, warm, red, tender to palpation, NO fevers at home or here but WBC 26 , US shows no drainable fluid but some phlegmon formation, HE was dcd on PO kefllex and metformin and glyburide,BS here 184, K 3,.3. Agree with readmission as needs IV Abx and got worse just after 2 days of dc. Past Medical History Cardiovascular: HTN Pulmonary: No pertinent hx GI: No pertinent hx Hepatobiliary: Other Endocrine: Diabetes Past Surgical History Past Surgical History: Other (I and D on left buttock cheek ), No pertinent history Family History Family History: Coronary Artery Disease, Diabetes Social History Smoke: No ALCOHOL: none Drugs: None Current Problem List Problem List Problems Medical Problems: (1) Cellulitis Status: Acute Problems: Current Medications Current Medications Current Medications Sodium Chloride 1,000 ml @ 1,000 mls/hr Q1H IV Last administered on 11/23/16 15:40; Start 11/23/16 at 14:19; Stop 11/23/16 at 15:18; Status DC Vancomycin HCl (Vanco Per Pharmacy) 1 each PRN DAILY PRN MC SEE COMMENTS; Start 11/23/16 at 15:00; Status UNV Vancomycin HCl 2 gm/Sodium Chloride 500 ml @ 250 mls/hr 1X ONCE IV Last administered on 11/23/16 15:40; Start 11/23/16 at 15:00; Stop 11/23/16 at 16:59 ; Status DC Ondansetron HCl (Zofran) 4 mg PRN Q8HRS PRN IV NAUSEA/VOMITING; Start 11/23/16 at 16:00; Stop 11/23/16 at 16:55; Status DC Morphine Sulfate 2 mg PRN Q2HR PRN IV PAIN; Start 11/23/16 at 16:00; Stop 11/24 at 15:59 Ondansetron HCl (Zofran) 4 mg PRN Q6HRS PRN IV NAUSEA/VOMITING; Start 11/23/16 at 17:00; Stop 11/24/16 at 16:59 Insulin Aspart (NovoLOG) 0-9 UNITS TIDWMEALS SQ ; Start 11/23/16 at 17:00; Status UNV Dextrose (Dextrose 50%-Water Syringe) 12.5 gm PRN Q15MIN PRN IV SEE COMMENTS; Start 11/23/16 at 17:00 Metformin HCl (Glucophage) 1,000 mg DAILYWBKFT PO ; Start 11/24/16 at 08:00; Status UNV Oxycodone/ Acetaminophen (Percocet 5/325) 1 tab PRN Q4HRS PRN PO PAIN; Start at 17:00 Non-Formulary Medication 1 tab BID PO ; Start 11/23/16 at 21:00; Status UNV Active Scripts Active Glipizide 10 Mg Tablet 1 Tab PO BID Metformin Hcl 1,000 Mg Tablet 1,000 Mg PO DAILYWBKFT Keflex (Cephalexin) 500 Mg Capsule 1 Cap PO TID Oxycodone-Acetaminophen 5-325 (Oxycodone Hcl/Acetaminophen) 1 Each Tablet 1-2 Tab PO PRN Q4HRS PRN Allergies Allergies: Coded Allergies: No Known Drug Allergies (Unverified , 11/19/16) ROS Review of System as per hPI, all else is neg Physical Exam General: Alert, Oriented X3, Cooperative, No acute distress HEENT: Atraumatic, PERRLA, EOMI, Mucous membr. moist/pink Lungs: Clear to auscultation, Normal air movement, Other (dec BS sec to iNc AP diameter) Breasts: Normal, Rt breast nml w/o mass, Lt breast nml w/o mass, Nipples normal Abdomen: Normal bowel sounds, Soft, No tenderness, No hepatosplenomegaly, No masses Male Genitals Exam: other (red induarted (very ) left buttock cheek with indwelling lexi drain, foul smell/poor hygiene) Rectal Exam: not examined PELVIC: Nml ext genitalia Extremities: No clubbing, No cyanosis, No edema, Normal pulses, No tenderness/ swelling Skin: No rashes, No breakdown, No significant lesion Neuro: Normal gait, Normal speech, Strength at 5/5 X4 ext, Normal tone, Sensation intact, Cranial nerves 3-12 NL, Reflexes 2+ Psych/Mental Status: Mental status NL, Mood NL Vitals Vitals Vital Signs Date Time Temp Pulse Resp B/P (MAP) Pulse Ox O2 Delivery O2 Flow Rate FiO2 11/23/16 13:45 97.8 99 20 96 Room Air 97.8 Labs Labs Laboratory Tests Test 11/23/16 13:50 11/23/16 14:19 Urine Color Yellow Urine Clarity Clear Urine pH 6.5 Urine Specific [place] 1.010 Urine Protein Negative mg/dL (NEG-TRACE) Urine Glucose (UA) 100 mg/dL (NEG) Urine Ketones (Stick) 40 mg/dL (NEG) Urine Blood Negative (NEG) Urine Nitrite Negative (NEG) Urine Bilirubin Negative (NEG) Urine Urobilinogen Dipstick 1.0 mg/dL (0.2 mg/dL) Urine Leukocyte Esterase Negative (NEG) Urine RBC 0 /HPF (0-2) Urine WBC Occ /HPF (0-4) Urine Squamous Epithelial Cells Occ /LPF Urine Bacteria 0 /HPF (0-FEW) White Blood Count 26.3 x10^3/uL (4.0-11.0) Red Blood Count 4.14 x10^6/uL (4.30-5.70) Hemoglobin 12.2 g/dL (13.0-17.5) Hematocrit 36.4 % (39.0-53.0) Mean Corpuscular Volume 88 fL (79-100) Mean Corpuscular Hemoglobin 30 pg (25-35) Mean Corpuscular Hemoglobin Concent 34 g/dL (31-37) Red Cell Distribution Width 13.8 % (11.5-14.5) Platelet Count 241 x10^3/uL (140-400) Neutrophils (%) (Auto) 85 % (31-73) Lymphocytes (%) (Auto) 7 % (24-48) Monocytes (%) (Auto) 7 % (0-9) Eosinophils (%) (Auto) 0 % (0-3) Basophils (%) (Auto) 1 % (0-3) Neutrophils # (Auto) 22.2 x10^3uL (1.8-7.7) Lymphocytes # (Auto) 1.9 x10^3/uL (1.0-4.8) Monocytes # (Auto) 1.9 x10^3/uL (0.0-1.1) Eosinophils # (Auto) 0.0 x10^3/uL (0.0-0.7) Basophils # (Auto) 0.2 x10^3/uL (0.0-0.2) Sodium Level 135 mmol/L (136-145) Potassium Level 3.3 mmol/L (3.5-5.1) Chloride Level 98 mmol/L (98-107) Carbon Dioxide Level 26 mmol/L (21-32) Anion Gap 11 (6-14) Blood Urea Nitrogen 10 mg/dL (8-26) Creatinine 0.8 mg/dL (0.7-1.3) Estimated GFR (Cockcroft-Gault) 104.5 Glucose Level 184 mg/dL (70-99) Lactic Acid Level 1.5 mmol/L (0.4-2.0) Calcium Level 8.6 mg/dL (8.5-10.1) Total Bilirubin 0.4 mg/dL (0.2-1.0) Direct Bilirubin 0.1 mg/dL (0.0-0.2) Aspartate Amino Transf (AST/SGOT) 29 U/L (15-37) Alanine Aminotransferase (ALT/SGPT) 39 U/L (16-63) Alkaline Phosphatase 115 U/L (46-116) Total Protein 6.5 g/dL (6.4-8.2) Albumin 1.8 g/dL (3.4-5.0) Laboratory Tests Test 11/23/16 13:50 11/23/16 14:19 Urine Color Yellow Urine Clarity Clear Urine pH 6.5 Urine Specific [place] 1.010 Urine Protein Negative mg/dL (NEG-TRACE) Urine Glucose (UA) 100 mg/dL (NEG) Urine Ketones (Stick) 40 mg/dL (NEG) Urine Blood Negative (NEG) Urine Nitrite Negative (NEG) Urine Bilirubin Negative (NEG) Urine Urobilinogen Dipstick 1.0 mg/dL (0.2 mg/dL) Urine Leukocyte Esterase Negative (NEG) Urine RBC 0 /HPF (0-2) Urine WBC Occ /HPF (0-4) Urine Squamous Epithelial Cells Occ /LPF Urine Bacteria 0 /HPF (0-FEW) White Blood Count 26.3 x10^3/uL (4.0-11.0) Red Blood Count 4.14 x10^6/uL (4.30-5.70) Hemoglobin 12.2 g/dL (13.0-17.5) Hematocrit 36.4 % (39.0-53.0) Mean Corpuscular Volume 88 fL (79-100) Mean Corpuscular Hemoglobin 30 pg (25-35) Mean Corpuscular Hemoglobin Concent 34 g/dL (31-37) Red Cell Distribution Width 13.8 % (11.5-14.5) Platelet Count 241 x10^3/uL (140-400) Neutrophils (%) (Auto) 85 % (31-73) Lymphocytes (%) (Auto) 7 % (24-48) Monocytes (%) (Auto) 7 % (0-9) Eosinophils (%) (Auto) 0 % (0-3) Basophils (%) (Auto) 1 % (0-3) Neutrophils # (Auto) 22.2 x10^3uL (1.8-7.7) Lymphocytes # (Auto) 1.9 x10^3/uL (1.0-4.8) Monocytes # (Auto) 1.9 x10^3/uL (0.0-1.1) Eosinophils # (Auto) 0.0 x10^3/uL (0.0-0.7) Basophils # (Auto) 0.2 x10^3/uL (0.0-0.2) Sodium Level 135 mmol/L (136-145) Potassium Level 3.3 mmol/L (3.5-5.1) Chloride Level 98 mmol/L (98-107) Carbon Dioxide Level 26 mmol/L (21-32) Anion Gap 11 (6-14) Blood Urea Nitrogen 10 mg/dL (8-26) Creatinine 0.8 mg/dL (0.7-1.3) Estimated GFR (Cockcroft-Gault) 104.5 Glucose Level 184 mg/dL (70-99) Lactic Acid Level 1.5 mmol/L (0.4-2.0) Calcium Level 8.6 mg/dL (8.5-10.1) Total Bilirubin 0.4 mg/dL (0.2-1.0) Direct Bilirubin 0.1 mg/dL (0.0-0.2) Aspartate Amino Transf (AST/SGOT) 29 U/L (15-37) Alanine Aminotransferase (ALT/SGPT) 39 U/L (16-63) Alkaline Phosphatase 115 U/L (46-116) Total Protein 6.5 g/dL (6.4-8.2) Albumin 1.8 g/dL (3.4-5.0) VTE Prophylaxis Ordered VTE Prophylaxis Devices: Yes VTE Pharmacological Prophylaxi: Yes Assessment/Plan Assessment/Plan 1. Left buttock cellulitis, worse after 2 days of dc on PO keflex - readmission - BC and wound cx was neg that admission, BC drawn again today,. AGree with doing vanc this time Reconsult GS,. NO drainable fluid, IF no surgical plans (likely guilherme case), would like to do NSAID RTC to help inflammation. COnsult ID this time since this is a readmission/recurrence of non healing wound 2. HTN, controlled - restart home lisinopril he was dcd with 3. DM 2 started on OHA with hgba1c 11 - fairly good control 184 at ER,. SSI resume meds he was dcd with - metformin and glyburide 4. SIRS POA infectious, no organ dyfcn - Add esr Seen at ER Dw Dr. Sofia and patient himself KLARISSA REDDY MD Nov 23, 2016 17:08
[2016-11-23 17:09] LABS: OVALOCYTES OCC; PLT ESTIMATE INCREASED (ADEQUATE); POLYCHROMASIA SLIGHT; SCHISTOCYTES OCC
[2016-11-23] MEDS: MORPHINE SULFATE 4 MG/ML DISP.SYRIN. IV PRN ×2 (17:11→20:18)
[2016-11-23] MEDS: oxyCODONE/APAP 5/325 1 TAB TABLET PO PRN ×2 (17:13→22:02)
[2016-11-23] MEDS ORDERED: POTASSIUM CHLORIDE 20 MEQ TABLET.ER. PO ONE (18:00)
[2016-11-23] MEDS: INSULIN ASPART 300 UNITS/3 ML INSULN.PEN SQ SCH (18:57)
[2016-11-23 19:45] VITALS: BP 116/66
[2016-11-23 23:56] VITALS: BP_SYST 100; BP_SYST 107; BP_DIAS 50; BP_DIAS 58
[2016-11-24] MEDS: oxyCODONE/APAP 5/325 1 TAB TABLET PO PRN ×3 (02:30→11:38)
[2016-11-24 03:20] VITALS: BP 103/55
[2016-11-24 05:06] LABS: BASO # 0.1 x10^3/uL (0.0-0.2); BASO % 0 % (0-3); EOS % 0 % (0-3); HEMATOCRIT 34.1 % (39.0-53.0); HEMOGLOBIN 11.2 g/dL (13.0-17.5); LYMPH # 1.9 x10^3/uL (1.0-4.8); LYMPH % 8 % (24-48); MEAN CORPUSCULAR HEMOGLOBIN 29 pg (25-35); MEAN CORPUSCULAR HGB CONC 33 g/dL (31-37); MEAN CORPUSCULAR VOLUME 88 fL (79-100); MONO % 9 % (0-9); NEUT % 82 % (31-73); PLATELET COUNT 248 x10^3/uL (140-400); RED BLOOD COUNT 3.88 x10^6/uL (4.30-5.70); RED CELL DISTRIBUTION WIDTH 13.5 % (11.5-14.5); WHITE BLOOD COUNT 23.2 x10^3/uL (4.0-11.0)
[2016-11-24 05:13] LABS: CALCIUM 7.9 mg/dL (8.5-10.1); CREATININE 0.7 mg/dL (0.7-1.3)
[2016-11-24 05:17] LABS: POTASSIUM 2.9 mmol/L (3.5-5.1)
[2016-11-24] MEDS ORDERED: POTASSIUM CHLORIDE 20 MEQ TABLET.ER. PO ONE ×4 (06:00→13:30)
[2016-11-24 07:00] VITALS: BP 117/52
[2016-11-24] MEDS: INSULIN ASPART 300 UNITS/3 ML INSULN.PEN SQ SCH ×3 (08:00→17:00)
[2016-11-24] MEDS: glipiZIDE 5 MG TABLET PO SCH ×2 (08:16→17:12)
[2016-11-24 11:00] VITALS: BP 110/60
--- NOTE | 2016-11-24 12:31 | PDOC2 ---
MORGAN QUINTANA VARNISH COOKER 11/24/16 1231: CONSULT Date of Consult Date of Consult DATE: 11/24/16 TIME: 12:27 Reason for Consult Reason for Consult: abscess Referring Physician Referring Physician: ER Identification/Chief Complaint Chief Complaint buttock pain Problems: Source Source: Chart review, Patient History of Present Illness Reason for Visit: I&D with lexi drain to right buttock on 11/[address] Hernández. Had subjective fevers, chills, and worsening pain. Readmission US showed phlegmon, no abscess Past Medical History Cardiovascular: HTN Pulmonary: No pertinent hx GI: No pertinent hx Hepatobiliary: Other Endocrine: Diabetes Past Surgical History Past Surgical History: Other (I and D on left buttock cheek ) Family History Family History: Coronary Artery Disease, Diabetes Social History No ALCOHOL: none Drugs: None Current Problem List Problem List Problems Medical Problems: (1) Cellulitis Status: Acute Current Medications Current Medications Current Medications Sodium Chloride 1,000 ml @ 1,000 mls/hr Q1H IV Last administered on 11/23/16 18:54; Start 11/23/16 at 14:19; Stop 11/23/16 at 15:18; Status DC Vancomycin HCl (Vanco Per Pharmacy) 1 each PRN DAILY PRN MC SEE COMMENTS; Start 11/23/16 at 15:00; Stop 11/23/16 at 17:58; Status DC Vancomycin HCl 2 gm/Sodium Chloride 500 ml @ 250 mls/hr 1X ONCE IV Last administered on 11/23/16 15:40; Start 11/23/16 at 15:00; Stop 11/23/16 at 16:59 ; Status DC Ondansetron HCl (Zofran) 4 mg PRN Q8HRS PRN IV NAUSEA/VOMITING; Start 11/23/16 at 16:00; Stop 11/23/16 at 16:55; Status DC Morphine Sulfate 2 mg PRN Q2HR PRN IV PAIN Last administered on 11/23/16 20:18 ; Start 11/23/16 at 16:00; Stop 11/24/16 at 15:59 Ondansetron HCl (Zofran) 4 mg PRN Q6HRS PRN IV NAUSEA/VOMITING Last administered on 11/23/16 17:09; Start 11/23/16 at 17:00; Stop 11/24/16 at 16:59 Insulin Aspart (NovoLOG) 0-9 UNITS TIDWMEALS SQ Last administered on 11/24/16 11:49; Start 11/23/16 at 17:00 Dextrose (Dextrose 50%-Water Syringe) 12.5 gm PRN Q15MIN PRN IV SEE COMMENTS; Start 11/23/16 at 17:00 Metformin HCl (Glucophage) 1,000 mg DAILYWBKFT PO Last administered on 08:16; Start 11/24/16 at 08:00 Oxycodone/ Acetaminophen (Percocet 5/325) 1 tab PRN Q4HRS PRN PO PAIN Last administered on 11/24/16 11:38; Start 11/23/16 at 17:00 Glipizide (Glucotrol) 10 mg BIDBFRMEAL PO Last administered on 11/24/16 08:16 ; Start 11/24/16 at 07:30 Potassium Chloride (Klor-Con) 40 meq 1X ONCE PO Last administered on 18:56; Start 11/23/16 at 18:00; Stop 11/23/16 at 18:01; Status DC Linezolid 300 ml @ 300 mls/hr Q12HR IV Last administered on 11/24/16 08:16; Start 11/23/16 at 19:00 Potassium Chloride (Klor-Con) 40 meq 1X ONCE PO ; Start 11/24/16 at 06:00; Stop 11/24/16 at 06:01; Status Cancel Potassium Chloride (Klor-Con) 40 meq DAILYWBKFT PO ; Start 11/25/16 at 08:00 Potassium Chloride (Klor-Con) 40 meq 1X ONCE PO Last administered on 06:32; Start 11/24/16 at 06:30; Stop 11/24/16 at 06:31; Status DC Potassium Chloride (Klor-Con) 40 meq 1X ONCE PO Last administered on 11:38; Start 11/24/16 at 10:30; Stop 11/24/16 at 10:31; Status DC Active Scripts Active Glipizide 10 Mg Tablet 1 Tab PO BID Metformin Hcl 1,000 Mg Tablet 1,000 Mg PO DAILYWBKFT Keflex (Cephalexin) 500 Mg Capsule 1 Cap PO TID Oxycodone-Acetaminophen 5-325 (Oxycodone Hcl/Acetaminophen) 1 Each Tablet 1-2 Tab PO PRN Q4HRS PRN Allergies Allergies: Coded Allergies: No Known Drug Allergies (Unverified , 11/19/16) ROS General: YES: Fatigue, Malaise PSYCHOLOGICAL ROS: No: Anxiety, Depression Eyes: No Blurry vision, No Double vision HEENT: No: Heacaches, Sore Throat Hematological and Lymphatic: No: Bleeding Problems, Blood Clots Respiratory: No: Cough, Shortness of breath Cardiovascular: No Chest Pain, No Palpitations Gastrointestinal: No Abdominal Pain, No Diarrhea Genitourinary: No Dysuria, No Hematuria Musculoskeletal: No Joint Pain, No Muscle Pain Neurological: No Impaired Coord/balance, No Numbness/Tingling Skin: Yes Other (see hpi) Physical Exam General: Alert, Oriented X3, Cooperative, No acute distress HEENT: PERRLA, Mucous membr. moist/pink Lungs: Clear to auscultation, Normal air movement Heart: Regular rate, Normal S1, Normal S2, No murmurs Abdomen: Normal bowel sounds, Soft Extremities: No clubbing, No cyanosis Skin: Other (right buttock --drain in place, erythema, tenderness, purulent drainage) Neuro: Normal gait, Normal speech Psych/Mental Status: Mental status NL, Mood NL MUSCULOSKELETAL: No deformity, No swelling Vitals VITALS Vital Signs Date Time Temp Pulse Resp B/P (MAP) Pulse Ox O2 Delivery O2 Flow Rate FiO2 11/24/16 11:38 21 96 Room Air 11/24/16 11:00 98.8 97 110/60 (77) 98.8 Labs Labs Laboratory Tests Test 11/23/16 13:50 11/23/16 14:19 11/23/16 20:35 11/24/16 03:30 Urine Color Yellow Urine Clarity Clear Urine pH 6.5 Urine Specific [place] 1.010 Urine Protein Negative mg/dL (NEG-TRACE) Urine Glucose (UA) 100 mg/dL (NEG) Urine Ketones (Stick) 40 mg/dL (NEG) Urine Blood Negative (NEG) Urine Nitrite Negative (NEG) Urine Bilirubin Negative (NEG) Urine Urobilinogen Dipstick 1.0 mg/dL (0.2 mg/dL) Urine Leukocyte Esterase Negative (NEG) Urine RBC 0 /HPF (0-2) Urine WBC Occ /HPF (0-4) Urine Squamous Epithelial Cells Occ /LPF Urine Bacteria 0 /HPF (0-FEW) White Blood Count 26.3 x10^3/uL (4.0-11.0) 23.2 x10^3/uL (4.0-11.0) Red Blood Count 4.14 x10^6/uL (4.30-5.70) 3.88 x10^6/uL (4.30-5.70) Hemoglobin 12.2 g/dL (13.0-17.5) 11.2 g/dL (13.0-17.5) Hematocrit 36.4 % (39.0-53.0) 34.1 % (39.0-53.0) Mean Corpuscular Volume 88 fL (79-100) 88 fL (79-100) Mean Corpuscular Hemoglobin 30 pg (25-35) 29 pg (25-35) Mean Corpuscular Hemoglobin Concent 34 g/dL (31-37) 33 g/dL (31-37) Red Cell Distribution Width 13.8 % (11.5-14.5) 13.5 % (11.5-14.5) Platelet Count 241 x10^3/uL (140-400) 248 x10^3/uL (140-400) Neutrophils (%) (Auto) 85 % (31-73) 82 % (31-73) Lymphocytes (%) (Auto) 7 % (24-48) 8 % (24-48) Monocytes (%) (Auto) 7 % (0-9) 9 % (0-9) Eosinophils (%) (Auto) 0 % (0-3) 0 % (0-3) Basophils (%) (Auto) 1 % (0-3) 0 % (0-3) Neutrophils # (Auto) 22.2 x10^3uL (1.8-7.7) 19.0 x10^3uL (1.8-7.7) Lymphocytes # (Auto) 1.9 x10^3/uL (1.0-4.8) 1.9 x10^3/uL (1.0-4.8) Monocytes # (Auto) 1.9 x10^3/uL (0.0-1.1) 2.1 x10^3/uL (0.0-1.1) Eosinophils # (Auto) 0.0 x10^3/uL (0.0-0.7) 0.0 x10^3/uL (0.0-0.7) Basophils # (Auto) 0.2 x10^3/uL (0.0-0.2) 0.1 x10^3/uL (0.0-0.2) Segmented Neutrophils % 83 % (35-66) Band Neutrophils % 1 % (0-9) Lymphocytes % 9 % (24-48) Monocytes % 6 % (0-10) Eosinophils % 1 % (0-5) Platelet Estimate Increased (ADEQUATE) Large Platelets Occ Polychromasia Slight Ovalocytes Occ Schistocytes Occ Sodium Level 135 mmol/L (136-145) 139 mmol/L (136-145) Potassium Level 3.3 mmol/L (3.5-5.1) 2.9 mmol/L (3.5-5.1) Chloride Level 98 mmol/L (98-107) 101 mmol/L (98-107) Carbon Dioxide Level 26 mmol/L (21-32) 29 mmol/L (21-32) Anion Gap 11 (6-14) 9 (6-14) Blood Urea Nitrogen 10 mg/dL (8-26) 5 mg/dL (8-26) Creatinine 0.8 mg/dL (0.7-1.3) 0.7 mg/dL (0.7-1.3) Estimated GFR (Cockcroft-Gault) 104.5 122.0 Glucose Level 184 mg/dL (70-99) 162 mg/dL (70-99) Lactic Acid Level 1.5 mmol/L (0.4-2.0) Calcium Level 8.6 mg/dL (8.5-10.1) 7.9 mg/dL (8.5-10.1) Total Bilirubin 0.4 mg/dL (0.2-1.0) Direct Bilirubin 0.1 mg/dL (0.0-0.2) Aspartate Amino Transf (AST/SGOT) 29 U/L (15-37) Alanine Aminotransferase (ALT/SGPT) 39 U/L (16-63) Alkaline Phosphatase 115 U/L (46-116) Total Protein 6.5 g/dL (6.4-8.2) Albumin 1.8 g/dL (3.4-5.0) Glucose (Fingerstick) 125 mg/dL (70-99) Test 11/24/16 08:09 11/24/16 11:02 Glucose (Fingerstick) 149 mg/dL (70-99) 231 mg/dL (70-99) Laboratory Tests Test 11/23/16 13:50 11/23/16 14:19 11/23/16 20:35 11/24/16 03:30 Urine Color Yellow Urine Clarity Clear Urine pH 6.5 Urine Specific [place] 1.010 Urine Protein Negative mg/dL (NEG-TRACE) Urine Glucose (UA) 100 mg/dL (NEG) Urine Ketones (Stick) 40 mg/dL (NEG) Urine Blood Negative (NEG) Urine Nitrite Negative (NEG) Urine Bilirubin Negative (NEG) Urine Urobilinogen Dipstick 1.0 mg/dL (0.2 mg/dL) Urine Leukocyte Esterase Negative (NEG) Urine RBC 0 /HPF (0-2) Urine WBC Occ /HPF (0-4) Urine Squamous Epithelial Cells Occ /LPF Urine Bacteria 0 /HPF (0-FEW) White Blood Count 26.3 x10^3/uL (4.0-11.0) 23.2 x10^3/uL (4.0-11.0) Red Blood Count 4.14 x10^6/uL (4.30-5.70) 3.88 x10^6/uL (4.30-5.70) Hemoglobin 12.2 g/dL (13.0-17.5) 11.2 g/dL (13.0-17.5) Hematocrit 36.4 % (39.0-53.0) 34.1 % (39.0-53.0) Mean Corpuscular Volume 88 fL (79-100) 88 fL (79-100) Mean Corpuscular Hemoglobin 30 pg (25-35) 29 pg (25-35) Mean Corpuscular Hemoglobin Concent 34 g/dL (31-37) 33 g/dL (31-37) Red Cell Distribution Width 13.8 % (11.5-14.5) 13.5 % (11.5-14.5) Platelet Count 241 x10^3/uL (140-400) 248 x10^3/uL (140-400) Neutrophils (%) (Auto) 85 % (31-73) 82 % (31-73) Lymphocytes (%) (Auto) 7 % (24-48) 8 % (24-48) Monocytes (%) (Auto) 7 % (0-9) 9 % (0-9) Eosinophils (%) (Auto) 0 % (0-3) 0 % (0-3) Basophils (%) (Auto) 1 % (0-3) 0 % (0-3) Neutrophils # (Auto) 22.2 x10^3uL (1.8-7.7) 19.0 x10^3uL (1.8-7.7) Lymphocytes # (Auto) 1.9 x10^3/uL (1.0-4.8) 1.9 x10^3/uL (1.0-4.8) Monocytes # (Auto) 1.9 x10^3/uL (0.0-1.1) 2.1 x10^3/uL (0.0-1.1) Eosinophils # (Auto) 0.0 x10^3/uL (0.0-0.7) 0.0 x10^3/uL (0.0-0.7) Basophils # (Auto) 0.2 x10^3/uL (0.0-0.2) 0.1 x10^3/uL (0.0-0.2) Segmented Neutrophils % 83 % (35-66) Band Neutrophils % 1 % (0-9) Lymphocytes % 9 % (24-48) Monocytes % 6 % (0-10) Eosinophils % 1 % (0-5) Platelet Estimate Increased (ADEQUATE) Large Platelets Occ Polychromasia Slight Ovalocytes Occ Schistocytes Occ Sodium Level 135 mmol/L (136-145) 139 mmol/L (136-145) Potassium Level 3.3 mmol/L (3.5-5.1) 2.9 mmol/L (3.5-5.1) Chloride Level 98 mmol/L (98-107) 101 mmol/L (98-107) Carbon Dioxide Level 26 mmol/L (21-32) 29 mmol/L (21-32) Anion Gap 11 (6-14) 9 (6-14) Blood Urea Nitrogen 10 mg/dL (8-26) 5 mg/dL (8-26) Creatinine 0.8 mg/dL (0.7-1.3) 0.7 mg/dL (0.7-1.3) Estimated GFR (Cockcroft-Gault) 104.5 122.0 Glucose Level 184 mg/dL (70-99) 162 mg/dL (70-99) Lactic Acid Level 1.5 mmol/L (0.4-2.0) Calcium Level 8.6 mg/dL (8.5-10.1) 7.9 mg/dL (8.5-10.1) Total Bilirubin 0.4 mg/dL (0.2-1.0) Direct Bilirubin 0.1 mg/dL (0.0-0.2) Aspartate Amino Transf (AST/SGOT) 29 U/L (15-37) Alanine Aminotransferase (ALT/SGPT) 39 U/L (16-63) Alkaline Phosphatase 115 U/L (46-116) Total Protein 6.5 g/dL (6.4-8.2) Albumin 1.8 g/dL (3.4-5.0) Glucose (Fingerstick) 125 mg/dL (70-99) Test 11/24/16 08:09 11/24/16 11:02 Glucose (Fingerstick) 149 mg/dL (70-99) 231 mg/dL (70-99) Images Images 1. 2.3 cm heterogeneous echogenicity identified within the soft tissue of the right buttock likely soft tissue infection or phlegmonous change without obvious drainable fluid collection. Assessment/Plan Assessment/Plan buttock abscess, s/p I&D, phlegmon Continue wound care, IV abx, drain ID consult pending KRISHNA HERNÁNDEZ MD 11/24/16 1400: CONSULT Allergies Allergies: Coded Allergies: No Known Drug Allergies (Unverified , 11/19/16) Assessment/Plan Assessment/Plan pt seen, interviewed and examined agree with plan having problem with pain control will start [employer] will follow Thanks for consult MORGAN QUINTANA APRN Nov 24, 2016 12:31 KRISHNA HERNÁNDEZ MD Nov 24, 2016 14:00
--- NOTE | 2016-11-24 12:56 | EKG ---
[facility] [address] [place] [address] Test Date: 2016-11-23 Test Time: 18:59:48 Pat Name: ROBERT ROSE Department: Room: [facility] Gender: M [employer]er: : 1970 Requested By: KLARISSA REDDY Order Number: [id number] Reading MD: Measurements Intervals [place] Rate: 102 P: 52 AR: 148 QRS: -6 QRSD: 88 T: 11 QT: 338 QTc: 445 Interpretive Statements SINUS TACHYCARDIA LEFTWARD AXIS S1,S2,S3 PATTERN OTHERWISE NORMAL ECG RI6.01 Unconfirmed report No previous ECG available for comparison
--- NOTE | 2016-11-24 13:08 | PDOC ---
PROGRESS NOTES Chief Complaint Chief Complaint 1. Cellulitis History of Present Illness History of Present Illness Patient laying left lateral recumbent in bed. Wound on R buttock dressed with clean and dry dressing. Patient awake and complained of significant pain. Vitals Vitals Vital Signs Date Time Temp Pulse Resp B/P (MAP) Pulse Ox O2 Delivery O2 Flow Rate FiO2 11/24/16 12:38 18 96 Room Air 11/24/16 11:00 98.8 97 110/60 (77) 98.8 Physical Exam Physical Exam sp I/D abscess on R buttock. Redness around area. No altered mental status. Patient uncomfortable. General: Alert, Oriented X3, Cooperative, No acute distress Heart: Regular rate, Normal S1, Normal S2, No murmurs Lungs: Clear Abdomen: Normal bowel sounds, Soft Extremities: No clubbing, No cyanosis Skin: Other (right buttock erythema and tenderness. ) Labs LABS Laboratory Tests Test 11/23/16 13:50 11/23/16 14:19 11/23/16 20:35 11/24/16 03:30 Urine Color Yellow Urine Clarity Clear Urine pH 6.5 Urine Specific [place] 1.010 Urine Protein Negative mg/dL (NEG-TRACE) Urine Glucose (UA) 100 mg/dL (NEG) Urine Ketones (Stick) 40 mg/dL (NEG) Urine Blood Negative (NEG) Urine Nitrite Negative (NEG) Urine Bilirubin Negative (NEG) Urine Urobilinogen Dipstick 1.0 mg/dL (0.2 mg/dL) Urine Leukocyte Esterase Negative (NEG) Urine RBC 0 /HPF (0-2) Urine WBC Occ /HPF (0-4) Urine Squamous Epithelial Cells Occ /LPF Urine Bacteria 0 /HPF (0-FEW) White Blood Count 26.3 x10^3/uL (4.0-11.0) 23.2 x10^3/uL (4.0-11.0) Red Blood Count 4.14 x10^6/uL (4.30-5.70) 3.88 x10^6/uL (4.30-5.70) Hemoglobin 12.2 g/dL (13.0-17.5) 11.2 g/dL (13.0-17.5) Hematocrit 36.4 % (39.0-53.0) 34.1 % (39.0-53.0) Mean Corpuscular Volume 88 fL (79-100) 88 fL (79-100) Mean Corpuscular Hemoglobin 30 pg (25-35) 29 pg (25-35) Mean Corpuscular Hemoglobin Concent 34 g/dL (31-37) 33 g/dL (31-37) Red Cell Distribution Width 13.8 % (11.5-14.5) 13.5 % (11.5-14.5) Platelet Count 241 x10^3/uL (140-400) 248 x10^3/uL (140-400) Neutrophils (%) (Auto) 85 % (31-73) 82 % (31-73) Lymphocytes (%) (Auto) 7 % (24-48) 8 % (24-48) Monocytes (%) (Auto) 7 % (0-9) 9 % (0-9) Eosinophils (%) (Auto) 0 % (0-3) 0 % (0-3) Basophils (%) (Auto) 1 % (0-3) 0 % (0-3) Neutrophils # (Auto) 22.2 x10^3uL (1.8-7.7) 19.0 x10^3uL (1.8-7.7) Lymphocytes # (Auto) 1.9 x10^3/uL (1.0-4.8) 1.9 x10^3/uL (1.0-4.8) Monocytes # (Auto) 1.9 x10^3/uL (0.0-1.1) 2.1 x10^3/uL (0.0-1.1) Eosinophils # (Auto) 0.0 x10^3/uL (0.0-0.7) 0.0 x10^3/uL (0.0-0.7) Basophils # (Auto) 0.2 x10^3/uL (0.0-0.2) 0.1 x10^3/uL (0.0-0.2) Segmented Neutrophils % 83 % (35-66) Band Neutrophils % 1 % (0-9) Lymphocytes % 9 % (24-48) Monocytes % 6 % (0-10) Eosinophils % 1 % (0-5) Platelet Estimate Increased (ADEQUATE) Large Platelets Occ Polychromasia Slight Ovalocytes Occ Schistocytes Occ Sodium Level 135 mmol/L (136-145) 139 mmol/L (136-145) Potassium Level 3.3 mmol/L (3.5-5.1) 2.9 mmol/L (3.5-5.1) Chloride Level 98 mmol/L (98-107) 101 mmol/L (98-107) Carbon Dioxide Level 26 mmol/L (21-32) 29 mmol/L (21-32) Anion Gap 11 (6-14) 9 (6-14) Blood Urea Nitrogen 10 mg/dL (8-26) 5 mg/dL (8-26) Creatinine 0.8 mg/dL (0.7-1.3) 0.7 mg/dL (0.7-1.3) Estimated GFR (Cockcroft-Gault) 104.5 122.0 Glucose Level 184 mg/dL (70-99) 162 mg/dL (70-99) Lactic Acid Level 1.5 mmol/L (0.4-2.0) Calcium Level 8.6 mg/dL (8.5-10.1) 7.9 mg/dL (8.5-10.1) Total Bilirubin 0.4 mg/dL (0.2-1.0) Direct Bilirubin 0.1 mg/dL (0.0-0.2) Aspartate Amino Transf (AST/SGOT) 29 U/L (15-37) Alanine Aminotransferase (ALT/SGPT) 39 U/L (16-63) Alkaline Phosphatase 115 U/L (46-116) Total Protein 6.5 g/dL (6.4-8.2) Albumin 1.8 g/dL (3.4-5.0) Glucose (Fingerstick) 125 mg/dL (70-99) Test 11/24/16 08:09 11/24/16 11:02 Glucose (Fingerstick) 149 mg/dL (70-99) 231 mg/dL (70-99) Review of Systems Review of Systems Patient complains of pain Patient tired. Assessment and Plan Assessmemt and Plan Problems Medical Problems: (1) Cellulitis Status: Acute Assessment 1: Cellulitis Plan: 1. Continue home meds 2. Continue antibiotics 3. Continue wound care 4. Order K+ 5. Recheck labs 6. s/p I&D Problems: Comment Review of Relevant I have reviewed the following items laz (where applicable) has been applied. Labs Laboratory Tests Test 11/23/16 13:50 11/23/16 14:19 11/23/16 20:35 11/24/16 03:30 Urine Color Yellow Urine Clarity Clear Urine pH 6.5 Urine Specific [place] 1.010 Urine Protein Negative mg/dL (NEG-TRACE) Urine Glucose (UA) 100 mg/dL (NEG) Urine Ketones (Stick) 40 mg/dL (NEG) Urine Blood Negative (NEG) Urine Nitrite Negative (NEG) Urine Bilirubin Negative (NEG) Urine Urobilinogen Dipstick 1.0 mg/dL (0.2 mg/dL) Urine Leukocyte Esterase Negative (NEG) Urine RBC 0 /HPF (0-2) Urine WBC Occ /HPF (0-4) Urine Squamous Epithelial Cells Occ /LPF Urine Bacteria 0 /HPF (0-FEW) White Blood Count 26.3 x10^3/uL (4.0-11.0) 23.2 x10^3/uL (4.0-11.0) Red Blood Count 4.14 x10^6/uL (4.30-5.70) 3.88 x10^6/uL (4.30-5.70) Hemoglobin 12.2 g/dL (13.0-17.5) 11.2 g/dL (13.0-17.5) Hematocrit 36.4 % (39.0-53.0) 34.1 % (39.0-53.0) Mean Corpuscular Volume 88 fL (79-100) 88 fL (79-100) Mean Corpuscular Hemoglobin 30 pg (25-35) 29 pg (25-35) Mean Corpuscular Hemoglobin Concent 34 g/dL (31-37) 33 g/dL (31-37) Red Cell Distribution Width 13.8 % (11.5-14.5) 13.5 % (11.5-14.5) Platelet Count 241 x10^3/uL (140-400) 248 x10^3/uL (140-400) Neutrophils (%) (Auto) 85 % (31-73) 82 % (31-73) Lymphocytes (%) (Auto) 7 % (24-48) 8 % (24-48) Monocytes (%) (Auto) 7 % (0-9) 9 % (0-9) Eosinophils (%) (Auto) 0 % (0-3) 0 % (0-3) Basophils (%) (Auto) 1 % (0-3) 0 % (0-3) Neutrophils # (Auto) 22.2 x10^3uL (1.8-7.7) 19.0 x10^3uL (1.8-7.7) Lymphocytes # (Auto) 1.9 x10^3/uL (1.0-4.8) 1.9 x10^3/uL (1.0-4.8) Monocytes # (Auto) 1.9 x10^3/uL (0.0-1.1) 2.1 x10^3/uL (0.0-1.1) Eosinophils # (Auto) 0.0 x10^3/uL (0.0-0.7) 0.0 x10^3/uL (0.0-0.7) Basophils # (Auto) 0.2 x10^3/uL (0.0-0.2) 0.1 x10^3/uL (0.0-0.2) Segmented Neutrophils % 83 % (35-66) Band Neutrophils % 1 % (0-9) Lymphocytes % 9 % (24-48) Monocytes % 6 % (0-10) Eosinophils % 1 % (0-5) Platelet Estimate Increased (ADEQUATE) Large Platelets Occ Polychromasia Slight Ovalocytes Occ Schistocytes Occ Sodium Level 135 mmol/L (136-145) 139 mmol/L (136-145) Potassium Level 3.3 mmol/L (3.5-5.1) 2.9 mmol/L (3.5-5.1) Chloride Level 98 mmol/L (98-107) 101 mmol/L (98-107) Carbon Dioxide Level 26 mmol/L (21-32) 29 mmol/L (21-32) Anion Gap 11 (6-14) 9 (6-14) Blood Urea Nitrogen 10 mg/dL (8-26) 5 mg/dL (8-26) Creatinine 0.8 mg/dL (0.7-1.3) 0.7 mg/dL (0.7-1.3) Estimated GFR (Cockcroft-Gault) 104.5 122.0 Glucose Level 184 mg/dL (70-99) 162 mg/dL (70-99) Lactic Acid Level 1.5 mmol/L (0.4-2.0) Calcium Level 8.6 mg/dL (8.5-10.1) 7.9 mg/dL (8.5-10.1) Total Bilirubin 0.4 mg/dL (0.2-1.0) Direct Bilirubin 0.1 mg/dL (0.0-0.2) Aspartate Amino Transf (AST/SGOT) 29 U/L (15-37) Alanine Aminotransferase (ALT/SGPT) 39 U/L (16-63) Alkaline Phosphatase 115 U/L (46-116) Total Protein 6.5 g/dL (6.4-8.2) Albumin 1.8 g/dL (3.4-5.0) Glucose (Fingerstick) 125 mg/dL (70-99) Test 11/24/16 08:09 11/24/16 11:02 Glucose (Fingerstick) 149 mg/dL (70-99) 231 mg/dL (70-99) Laboratory Tests Test 11/23/16 13:50 11/23/16 14:19 11/23/16 20:35 11/24/16 03:30 Urine Color Yellow Urine Clarity Clear Urine pH 6.5 Urine Specific [place] 1.010 Urine Protein Negative mg/dL (NEG-TRACE) Urine Glucose (UA) 100 mg/dL (NEG) Urine Ketones (Stick) 40 mg/dL (NEG) Urine Blood Negative (NEG) Urine Nitrite Negative (NEG) Urine Bilirubin Negative (NEG) Urine Urobilinogen Dipstick 1.0 mg/dL (0.2 mg/dL) Urine Leukocyte Esterase Negative (NEG) Urine RBC 0 /HPF (0-2) Urine WBC Occ /HPF (0-4) Urine Squamous Epithelial Cells Occ /LPF Urine Bacteria 0 /HPF (0-FEW) White Blood Count 26.3 x10^3/uL (4.0-11.0) 23.2 x10^3/uL (4.0-11.0) Red Blood Count 4.14 x10^6/uL (4.30-5.70) 3.88 x10^6/uL (4.30-5.70) Hemoglobin 12.2 g/dL (13.0-17.5) 11.2 g/dL (13.0-17.5) Hematocrit 36.4 % (39.0-53.0) 34.1 % (39.0-53.0) Mean Corpuscular Volume 88 fL (79-100) 88 fL (79-100) Mean Corpuscular Hemoglobin 30 pg (25-35) 29 pg (25-35) Mean Corpuscular Hemoglobin Concent 34 g/dL (31-37) 33 g/dL (31-37) Red Cell Distribution Width 13.8 % (11.5-14.5) 13.5 % (11.5-14.5) Platelet Count 241 x10^3/uL (140-400) 248 x10^3/uL (140-400) Neutrophils (%) (Auto) 85 % (31-73) 82 % (31-73) Lymphocytes (%) (Auto) 7 % (24-48) 8 % (24-48) Monocytes (%) (Auto) 7 % (0-9) 9 % (0-9) Eosinophils (%) (Auto) 0 % (0-3) 0 % (0-3) Basophils (%) (Auto) 1 % (0-3) 0 % (0-3) Neutrophils # (Auto) 22.2 x10^3uL (1.8-7.7) 19.0 x10^3uL (1.8-7.7) Lymphocytes # (Auto) 1.9 x10^3/uL (1.0-4.8) 1.9 x10^3/uL (1.0-4.8) Monocytes # (Auto) 1.9 x10^3/uL (0.0-1.1) 2.1 x10^3/uL (0.0-1.1) Eosinophils # (Auto) 0.0 x10^3/uL (0.0-0.7) 0.0 x10^3/uL (0.0-0.7) Basophils # (Auto) 0.2 x10^3/uL (0.0-0.2) 0.1 x10^3/uL (0.0-0.2) Segmented Neutrophils % 83 % (35-66) Band Neutrophils % 1 % (0-9) Lymphocytes % 9 % (24-48) Monocytes % 6 % (0-10) Eosinophils % 1 % (0-5) Platelet Estimate Increased (ADEQUATE) Large Platelets Occ Polychromasia Slight Ovalocytes Occ Schistocytes Occ Sodium Level 135 mmol/L (136-145) 139 mmol/L (136-145) Potassium Level 3.3 mmol/L (3.5-5.1) 2.9 mmol/L (3.5-5.1) Chloride Level 98 mmol/L (98-107) 101 mmol/L (98-107) Carbon Dioxide Level 26 mmol/L (21-32) 29 mmol/L (21-32) Anion Gap 11 (6-14) 9 (6-14) Blood Urea Nitrogen 10 mg/dL (8-26) 5 mg/dL (8-26) Creatinine 0.8 mg/dL (0.7-1.3) 0.7 mg/dL (0.7-1.3) Estimated GFR (Cockcroft-Gault) 104.5 122.0 Glucose Level 184 mg/dL (70-99) 162 mg/dL (70-99) Lactic Acid Level 1.5 mmol/L (0.4-2.0) Calcium Level 8.6 mg/dL (8.5-10.1) 7.9 mg/dL (8.5-10.1) Total Bilirubin 0.4 mg/dL (0.2-1.0) Direct Bilirubin 0.1 mg/dL (0.0-0.2) Aspartate Amino Transf (AST/SGOT) 29 U/L (15-37) Alanine Aminotransferase (ALT/SGPT) 39 U/L (16-63) Alkaline Phosphatase 115 U/L (46-116) Total Protein 6.5 g/dL (6.4-8.2) Albumin 1.8 g/dL (3.4-5.0) Glucose (Fingerstick) 125 mg/dL (70-99) Test 11/24/16 08:09 11/24/16 11:02 Glucose (Fingerstick) 149 mg/dL (70-99) 231 mg/dL (70-99) Medications Current Medications Sodium Chloride 1,000 ml @ 1,000 mls/hr Q1H IV Last administered on 11/23/16t 18:54; Start 11/23/16 at 14:19; Stop 11/23/16 at 15:18; Status DC Vancomycin HCl (Vanco Per Pharmacy) 1 each PRN DAILY PRN MC SEE COMMENTS; Start 11/23/16 at 15:00; Stop 11/23/16 at 17:58; Status DC Vancomycin HCl 2 gm/Sodium Chloride 500 ml @ 250 mls/hr 1X ONCE IV Last administered on 11/23/16 15:40; Start 11/23/16 at 15:00; Stop 11/23/16 at 16:59 ; Status DC Ondansetron HCl (Zofran) 4 mg PRN Q8HRS PRN IV NAUSEA/VOMITING; Start 11/23/16 at 16:00; Stop 11/23/16 at 16:55; Status DC Morphine Sulfate 2 mg PRN Q2HR PRN IV PAIN Last administered on 11/23/16 20:18 ; Start 11/23/16 at 16:00; Stop 11/24/16 at 15:59 Ondansetron HCl (Zofran) 4 mg PRN Q6HRS PRN IV NAUSEA/VOMITING Last administered on 11/23/16 17:09; Start 11/23/16 at 17:00; Stop 11/24/16 at 16:59 Insulin Aspart (NovoLOG) 0-9 UNITS TIDWMEALS SQ Last administered on 11/24/16 11:49; Start 11/23/16 at 17:00 Dextrose (Dextrose 50%-Water Syringe) 12.5 gm PRN Q15MIN PRN IV SEE COMMENTS; Start 11/23/16 at 17:00 Metformin HCl (Glucophage) 1,000 mg DAILYWBKFT PO Last administered on 08:16; Start 11/24/16 at 08:00 Oxycodone/ Acetaminophen (Percocet 5/325) 1 tab PRN Q4HRS PRN PO PAIN Last administered on 11/24/16 11:38; Start 11/23/16 at 17:00 Glipizide (Glucotrol) 10 mg BIDBFRMEAL PO Last administered on 11/24/16 08:16 ; Start 11/24/16 at 07:30 Potassium Chloride (Klor-Con) 40 meq 1X ONCE PO Last administered on 18:56; Start 11/23/16 at 18:00; Stop 11/23/16 at 18:01; Status DC Linezolid 300 ml @ 300 mls/hr Q12HR IV Last administered on 11/24/16 08:16; Start 11/23/16 at 19:00 Potassium Chloride (Klor-Con) 40 meq 1X ONCE PO ; Start 11/24/16 at 06:00; Stop 11/24/16 at 06:01; Status Cancel Potassium Chloride (Klor-Con) 40 meq DAILYWBKFT PO ; Start 11/25/16 at 08:00 Potassium Chloride (Klor-Con) 40 meq 1X ONCE PO Last administered on 06:32; Start 11/24/16 at 06:30; Stop 11/24/16 at 06:31; Status DC Potassium Chloride (Klor-Con) 40 meq 1X ONCE PO Last administered on 11:38; Start 11/24/16 at 10:30; Stop 11/24/16 at 10:31; Status DC Active Scripts Active Glipizide 10 Mg Tablet 1 Tab PO BID Metformin Hcl 1,000 Mg Tablet 1,000 Mg PO DAILYWBKFT Keflex (Cephalexin) 500 Mg Capsule 1 Cap PO TID Oxycodone-Acetaminophen 5-325 (Oxycodone Hcl/Acetaminophen) 1 Each Tablet 1-2 Tab PO PRN Q4HRS PRN Vitals/I & O Vital Sign - Last 24 Hours 11/23/16 11/23/16 11/23/16 11/23/16 13:45 15:30 16:30 17:30 Temp 97.8 97.8 Pulse 99 98 98 106 Resp 20 16 16 16 B/P (MAP) 96/49 (65) 117/66 (83) 127/75 (92) Pulse Ox 96 97 96 98 O2 Delivery Room Air Room Air Room Air Room Air 11/23/16 11/23/16 11/23/16 11/23/16 18:30 19:15 19:45 20:00 Temp 99.7 99.7 Pulse 106 102 104 Resp 16 16 20 B/P (MAP) 131/76 (94) 114/73 (87) 116/66 (83) Pulse Ox 94 95 96 O2 Delivery Room Air Room Air Room Air Room Air 11/23/16 11/23/16 11/23/16 11/23/16 20:18 20:48 22:02 23:56 Temp 99.0 99.0 Pulse 106 Resp 20 20 18 18 B/P (MAP) 107/58 (74) Pulse Ox 96 97 97 93 O2 Delivery Room Air Room Air Room Air Room Air 11/24/16 11/24/16 11/24/16 11/24/16 02:30 03:20 06:38 07:00 Temp 98.9 98.8 98.9 98.8 Pulse 90 91 Resp 20 16 20 19 B/P (MAP) 103/55 (71) 117/52 (73) Pulse Ox 97 95 96 98 O2 Delivery Room Air Room Air Room Air Room Air 11/24/16 11/24/16 11/24/16 11/24/16 08:00 11:00 11:38 12:38 Temp 98.8 98.8 Pulse 97 Resp 19 21 18 B/P (MAP) 110/60 (77) Pulse Ox 92 96 96 O2 Delivery Room Air Room Air Room Air Room Air BUSHRA HOGAN III DO Nov 24, 2016 13:08
[2016-11-24 15:00] VITALS: BP 99/44
[2016-11-24 19:47] VITALS: BP 121/63
[2016-11-24] MEDS ORDERED: ACETAMINOPHEN 325 MG TABLET. PO PRN (23:15)
[2016-11-24 23:48] VITALS: BP 118/57
[2016-11-25 03:38] VITALS: BP 115/63
[2016-11-25 07:00] VITALS: BP 112/62
[2016-11-25] MEDS: POTASSIUM CHLORIDE 20 MEQ TABLET.ER. PO SCH (08:45)
[2016-11-25] MEDS: glipiZIDE 5 MG TABLET PO SCH ×2 (08:46→17:22)
--- NOTE | 2016-11-25 08:46 | PDOC ---
SURGICAL PROGRESS NOTE Subjective Pain better controlled, wound still draining Vital Signs Vital Signs Date Time Temp Pulse Resp B/P (MAP) Pulse Ox O2 Delivery O2 Flow Rate FiO2 11/25/16 07:00 98.9 78 16 112/62 (79) 96 Room Air 98.9 PATIENT HAS A CUMMINGS: Yes General: Alert, Oriented X3, Cooperative, mild distress Skin: Other (right buttock wound with drain, TTP with erythema) Labs Laboratory Tests Test 11/23/16 13:50 11/23/16 14:19 11/23/16 20:35 11/24/16 03:30 Urine Color Yellow Urine Clarity Clear Urine pH 6.5 Urine Specific [place] 1.010 Urine Protein Negative mg/dL (NEG-TRACE) Urine Glucose (UA) 100 mg/dL (NEG) Urine Ketones (Stick) 40 mg/dL (NEG) Urine Blood Negative (NEG) Urine Nitrite Negative (NEG) Urine Bilirubin Negative (NEG) Urine Urobilinogen Dipstick 1.0 mg/dL (0.2 mg/dL) Urine Leukocyte Esterase Negative (NEG) Urine RBC 0 /HPF (0-2) Urine WBC Occ /HPF (0-4) Urine Squamous Epithelial Cells Occ /LPF Urine Bacteria 0 /HPF (0-FEW) White Blood Count 26.3 x10^3/uL (4.0-11.0) 23.2 x10^3/uL (4.0-11.0) Red Blood Count 4.14 x10^6/uL (4.30-5.70) 3.88 x10^6/uL (4.30-5.70) Hemoglobin 12.2 g/dL (13.0-17.5) 11.2 g/dL (13.0-17.5) Hematocrit 36.4 % (39.0-53.0) 34.1 % (39.0-53.0) Mean Corpuscular Volume 88 fL (79-100) 88 fL (79-100) Mean Corpuscular Hemoglobin 30 pg (25-35) 29 pg (25-35) Mean Corpuscular Hemoglobin Concent 34 g/dL (31-37) 33 g/dL (31-37) Red Cell Distribution Width 13.8 % (11.5-14.5) 13.5 % (11.5-14.5) Platelet Count 241 x10^3/uL (140-400) 248 x10^3/uL (140-400) Neutrophils (%) (Auto) 85 % (31-73) 82 % (31-73) Lymphocytes (%) (Auto) 7 % (24-48) 8 % (24-48) Monocytes (%) (Auto) 7 % (0-9) 9 % (0-9) Eosinophils (%) (Auto) 0 % (0-3) 0 % (0-3) Basophils (%) (Auto) 1 % (0-3) 0 % (0-3) Neutrophils # (Auto) 22.2 x10^3uL (1.8-7.7) 19.0 x10^3uL (1.8-7.7) Lymphocytes # (Auto) 1.9 x10^3/uL (1.0-4.8) 1.9 x10^3/uL (1.0-4.8) Monocytes # (Auto) 1.9 x10^3/uL (0.0-1.1) 2.1 x10^3/uL (0.0-1.1) Eosinophils # (Auto) 0.0 x10^3/uL (0.0-0.7) 0.0 x10^3/uL (0.0-0.7) Basophils # (Auto) 0.2 x10^3/uL (0.0-0.2) 0.1 x10^3/uL (0.0-0.2) Segmented Neutrophils % 83 % (35-66) Band Neutrophils % 1 % (0-9) Lymphocytes % 9 % (24-48) Monocytes % 6 % (0-10) Eosinophils % 1 % (0-5) Platelet Estimate Increased (ADEQUATE) Large Platelets Occ Polychromasia Slight Ovalocytes Occ Schistocytes Occ Sodium Level 135 mmol/L (136-145) 139 mmol/L (136-145) Potassium Level 3.3 mmol/L (3.5-5.1) 2.9 mmol/L (3.5-5.1) Chloride Level 98 mmol/L (98-107) 101 mmol/L (98-107) Carbon Dioxide Level 26 mmol/L (21-32) 29 mmol/L (21-32) Anion Gap 11 (6-14) 9 (6-14) Blood Urea Nitrogen 10 mg/dL (8-26) 5 mg/dL (8-26) Creatinine 0.8 mg/dL (0.7-1.3) 0.7 mg/dL (0.7-1.3) Estimated GFR (Cockcroft-Gault) 104.5 122.0 Glucose Level 184 mg/dL (70-99) 162 mg/dL (70-99) Lactic Acid Level 1.5 mmol/L (0.4-2.0) Calcium Level 8.6 mg/dL (8.5-10.1) 7.9 mg/dL (8.5-10.1) Total Bilirubin 0.4 mg/dL (0.2-1.0) Direct Bilirubin 0.1 mg/dL (0.0-0.2) Aspartate Amino Transf (AST/SGOT) 29 U/L (15-37) Alanine Aminotransferase (ALT/SGPT) 39 U/L (16-63) Alkaline Phosphatase 115 U/L (46-116) Total Protein 6.5 g/dL (6.4-8.2) Albumin 1.8 g/dL (3.4-5.0) Glucose (Fingerstick) 125 mg/dL (70-99) Test 11/24/16 08:09 11/24/16 11:02 11/24/16 16:14 11/24/16 20:26 Glucose (Fingerstick) 149 mg/dL (70-99) 231 mg/dL (70-99) 129 mg/dL (70-99) 137 mg/dL (70-99) Test 11/25/16 07:49 Glucose (Fingerstick) 159 mg/dL (70-99) Laboratory Tests Test 11/24/16 11:02 11/24/16 16:14 11/24/16 20:26 11/25/16 07:49 Glucose (Fingerstick) 231 mg/dL (70-99) 129 mg/dL (70-99) 137 mg/dL (70-99) 159 mg/dL (70-99) Problem List Problems Medical Problems: (1) Cellulitis Status: Acute Assessment/Plan Right buttock abscess s/p I&D wbc 23,000 slightly improved Continue IV abx and local wound care May need PIC line due to poor venous access Problems: KODI JIMENES MD Nov 25, 2016 08:46
[2016-11-25] MEDS: INSULIN ASPART 300 UNITS/3 ML INSULN.PEN SQ SCH ×3 (09:02→17:00)
[2016-11-25 11:36] VITALS: BP 126/78
[2016-11-25 11:49] LABS: BASO # 0.2 x10^3/uL (0.0-0.2); BASO % 1 % (0-3); EOS % 0 % (0-3); HEMATOCRIT 34.1 % (39.0-53.0); HEMOGLOBIN 11.6 g/dL (13.0-17.5); LYMPH % 9 % (24-48); MEAN CORPUSCULAR HEMOGLOBIN 29 pg (25-35); MEAN CORPUSCULAR HGB CONC 34 g/dL (31-37); MEAN CORPUSCULAR VOLUME 86 fL (79-100); MONO % 10 % (0-9); NEUT % 81 % (31-73); PLATELET COUNT 293 x10^3/uL (140-400); RED BLOOD COUNT 3.96 x10^6/uL (4.30-5.70); RED CELL DISTRIBUTION WIDTH 13.9 % (11.5-14.5); WHITE BLOOD COUNT 23.1 x10^3/uL (4.0-11.0)
[2016-11-25 12:00] LABS: CALCIUM 8.1 mg/dL (8.5-10.1); CREATININE 0.8 mg/dL (0.7-1.3); GFR 104.5; POTASSIUM 3.7 mmol/L (3.5-5.1)
--- NOTE | 2016-11-25 13:20 | PDOC ---
PROGRESS NOTES Chief Complaint Chief Complaint 1. Cellulitis History of Present Illness History of Present Illness Nurse placing PICC line. Healthcare team took care not to contaminate sterile field. Patient awake and conversant. Asked for prescription for pain medications when discharged home. Vitals Vitals Vital Signs Date Time Temp Pulse Resp B/P (MAP) Pulse Ox O2 Delivery O2 Flow Rate FiO2 11/25/16 12:19 22 96 Room Air 11/25/16 11:36 99.0 89 126/78 (94) 99.0 Physical Exam Physical Exam Unable to obtain d/t ongoing procedure. General: Alert, Oriented X3, Cooperative, mild distress Heart: Regular rate, No murmurs Lungs: Clear Abdomen: Normal bowel sounds, Soft Extremities: No clubbing, No cyanosis Skin: Other (right buttock wound with drain, TTP with erythema) Labs LABS Laboratory Tests Test 11/24/16 16:14 11/24/16 20:26 11/25/16 07:49 11/25/16 11:30 Glucose (Fingerstick) 129 mg/dL (70-99) 137 mg/dL (70-99) 159 mg/dL (70-99) White Blood Count 23.1 x10^3/uL (4.0-11.0) Red Blood Count 3.96 x10^6/uL (4.30-5.70) Hemoglobin 11.6 g/dL (13.0-17.5) Hematocrit 34.1 % (39.0-53.0) Mean Corpuscular Volume 86 fL (79-100) Mean Corpuscular Hemoglobin 29 pg (25-35) Mean Corpuscular Hemoglobin Concent 34 g/dL (31-37) Red Cell Distribution Width 13.9 % (11.5-14.5) Platelet Count 293 x10^3/uL (140-400) Neutrophils (%) (Auto) 81 % (31-73) Lymphocytes (%) (Auto) 9 % (24-48) Monocytes (%) (Auto) 10 % (0-9) Eosinophils (%) (Auto) 0 % (0-3) Basophils (%) (Auto) 1 % (0-3) Neutrophils # (Auto) 18.6 x10^3uL (1.8-7.7) Lymphocytes # (Auto) 2.0 x10^3/uL (1.0-4.8) Monocytes # (Auto) 2.2 x10^3/uL (0.0-1.1) Eosinophils # (Auto) 0.1 x10^3/uL (0.0-0.7) Basophils # (Auto) 0.2 x10^3/uL (0.0-0.2) Sodium Level 136 mmol/L (136-145) Potassium Level 3.7 mmol/L (3.5-5.1) Chloride Level 101 mmol/L (98-107) Carbon Dioxide Level 31 mmol/L (21-32) Anion Gap 4 (6-14) Blood Urea Nitrogen 5 mg/dL (8-26) Creatinine 0.8 mg/dL (0.7-1.3) Estimated GFR (Cockcroft-Gault) 104.5 Glucose Level 160 mg/dL (70-99) Calcium Level 8.1 mg/dL (8.5-10.1) Test 11/25/16 11:34 Glucose (Fingerstick) 136 mg/dL (70-99) Review of Systems Review of Systems Patient calm with no anxiety or distress. Patient complains of pain. Assessment and Plan Assessmemt and Plan Problems Medical Problems: (1) Cellulitis Status: Acute Assessment: 1. Cellulitis Plan: 1. Ordered BMP and CBC 2. Will write prescription for pain meds when patient dc 3. Continue IV abx 4. probably dc 11/26/2016 if okay with consults 5. Will write prescription to continue po abx after dc Problems: Comment Review of Relevant I have reviewed the following items laz (where applicable) has been applied. Labs Laboratory Tests Test 11/23/16 13:50 11/23/16 14:19 11/23/16 20:35 11/24/16 03:30 Urine Color Yellow Urine Clarity Clear Urine pH 6.5 Urine Specific C[place]horn 1.010 Urine Protein Negative mg/dL (NEG-TRACE) Urine Glucose (UA) 100 mg/dL (NEG) Urine Ketones (Stick) 40 mg/dL (NEG) Urine Blood Negative (NEG) Urine Nitrite Negative (NEG) Urine Bilirubin Negative (NEG) Urine Urobilinogen Dipstick 1.0 mg/dL (0.2 mg/dL) Urine Leukocyte Esterase Negative (NEG) Urine RBC 0 /HPF (0-2) Urine WBC Occ /HPF (0-4) Urine Squamous Epithelial Cells Occ /LPF Urine Bacteria 0 /HPF (0-FEW) White Blood Count 26.3 x10^3/uL (4.0-11.0) 23.2 x10^3/uL (4.0-11.0) Red Blood Count 4.14 x10^6/uL (4.30-5.70) 3.88 x10^6/uL (4.30-5.70) Hemoglobin 12.2 g/dL (13.0-17.5) 11.2 g/dL (13.0-17.5) Hematocrit 36.4 % (39.0-53.0) 34.1 % (39.0-53.0) Mean Corpuscular Volume 88 fL (79-100) 88 fL (79-100) Mean Corpuscular Hemoglobin 30 pg (25-35) 29 pg (25-35) Mean Corpuscular Hemoglobin Concent 34 g/dL (31-37) 33 g/dL (31-37) Red Cell Distribution Width 13.8 % (11.5-14.5) 13.5 % (11.5-14.5) Platelet Count 241 x10^3/uL (140-400) 248 x10^3/uL (140-400) Neutrophils (%) (Auto) 85 % (31-73) 82 % (31-73) Lymphocytes (%) (Auto) 7 % (24-48) 8 % (24-48) Monocytes (%) (Auto) 7 % (0-9) 9 % (0-9) Eosinophils (%) (Auto) 0 % (0-3) 0 % (0-3) Basophils (%) (Auto) 1 % (0-3) 0 % (0-3) Neutrophils # (Auto) 22.2 x10^3uL (1.8-7.7) 19.0 x10^3uL (1.8-7.7) Lymphocytes # (Auto) 1.9 x10^3/uL (1.0-4.8) 1.9 x10^3/uL (1.0-4.8) Monocytes # (Auto) 1.9 x10^3/uL (0.0-1.1) 2.1 x10^3/uL (0.0-1.1) Eosinophils # (Auto) 0.0 x10^3/uL (0.0-0.7) 0.0 x10^3/uL (0.0-0.7) Basophils # (Auto) 0.2 x10^3/uL (0.0-0.2) 0.1 x10^3/uL (0.0-0.2) Segmented Neutrophils % 83 % (35-66) Band Neutrophils % 1 % (0-9) Lymphocytes % 9 % (24-48) Monocytes % 6 % (0-10) Eosinophils % 1 % (0-5) Platelet Estimate Increased (ADEQUATE) Large Platelets Occ Polychromasia Slight Ovalocytes Occ Schistocytes Occ Sodium Level 135 mmol/L (136-145) 139 mmol/L (136-145) Potassium Level 3.3 mmol/L (3.5-5.1) 2.9 mmol/L (3.5-5.1) Chloride Level 98 mmol/L (98-107) 101 mmol/L (98-107) Carbon Dioxide Level 26 mmol/L (21-32) 29 mmol/L (21-32) Anion Gap 11 (6-14) 9 (6-14) Blood Urea Nitrogen 10 mg/dL (8-26) 5 mg/dL (8-26) Creatinine 0.8 mg/dL (0.7-1.3) 0.7 mg/dL (0.7-1.3) Estimated GFR (Cockcroft-Gault) 104.5 122.0 Glucose Level 184 mg/dL (70-99) 162 mg/dL (70-99) Lactic Acid Level 1.5 mmol/L (0.4-2.0) Calcium Level 8.6 mg/dL (8.5-10.1) 7.9 mg/dL (8.5-10.1) Total Bilirubin 0.4 mg/dL (0.2-1.0) Direct Bilirubin 0.1 mg/dL (0.0-0.2) Aspartate Amino Transf (AST/SGOT) 29 U/L (15-37) Alanine Aminotransferase (ALT/SGPT) 39 U/L (16-63) Alkaline Phosphatase 115 U/L (46-116) Total Protein 6.5 g/dL (6.4-8.2) Albumin 1.8 g/dL (3.4-5.0) Glucose (Fingerstick) 125 mg/dL (70-99) Test 11/24/16 08:09 11/24/16 11:02 11/24/16 16:14 11/24/16 20:26 Glucose (Fingerstick) 149 mg/dL (70-99) 231 mg/dL (70-99) 129 mg/dL (70-99) 137 mg/dL (70-99) Test 11/25/16 07:49 11/25/16 11:30 11/25/16 11:34 Glucose (Fingerstick) 159 mg/dL (70-99) 136 mg/dL (70-99) White Blood Count 23.1 x10^3/uL (4.0-11.0) Red Blood Count 3.96 x10^6/uL (4.30-5.70) Hemoglobin 11.6 g/dL (13.0-17.5) Hematocrit 34.1 % (39.0-53.0) Mean Corpuscular Volume 86 fL (79-100) Mean Corpuscular Hemoglobin 29 pg (25-35) Mean Corpuscular Hemoglobin Concent 34 g/dL (31-37) Red Cell Distribution Width 13.9 % (11.5-14.5) Platelet Count 293 x10^3/uL (140-400) Neutrophils (%) (Auto) 81 % (31-73) Lymphocytes (%) (Auto) 9 % (24-48) Monocytes (%) (Auto) 10 % (0-9) Eosinophils (%) (Auto) 0 % (0-3) Basophils (%) (Auto) 1 % (0-3) Neutrophils # (Auto) 18.6 x10^3uL (1.8-7.7) Lymphocytes # (Auto) 2.0 x10^3/uL (1.0-4.8) Monocytes # (Auto) 2.2 x10^3/uL (0.0-1.1) Eosinophils # (Auto) 0.1 x10^3/uL (0.0-0.7) Basophils # (Auto) 0.2 x10^3/uL (0.0-0.2) Sodium Level 136 mmol/L (136-145) Potassium Level 3.7 mmol/L (3.5-5.1) Chloride Level 101 mmol/L (98-107) Carbon Dioxide Level 31 mmol/L (21-32) Anion Gap 4 (6-14) Blood Urea Nitrogen 5 mg/dL (8-26) Creatinine 0.8 mg/dL (0.7-1.3) Estimated GFR (Cockcroft-Gault) 104.5 Glucose Level 160 mg/dL (70-99) Calcium Level 8.1 mg/dL (8.5-10.1) Laboratory Tests Test 11/24/16 16:14 11/24/16 20:26 11/25/16 07:49 11/25/16 11:30 Glucose (Fingerstick) 129 mg/dL (70-99) 137 mg/dL (70-99) 159 mg/dL (70-99) White Blood Count 23.1 x10^3/uL (4.0-11.0) Red Blood Count 3.96 x10^6/uL (4.30-5.70) Hemoglobin 11.6 g/dL (13.0-17.5) Hematocrit 34.1 % (39.0-53.0) Mean Corpuscular Volume 86 fL (79-100) Mean Corpuscular Hemoglobin 29 pg (25-35) Mean Corpuscular Hemoglobin Concent 34 g/dL (31-37) Red Cell Distribution Width 13.9 % (11.5-14.5) Platelet Count 293 x10^3/uL (140-400) Neutrophils (%) (Auto) 81 % (31-73) Lymphocytes (%) (Auto) 9 % (24-48) Monocytes (%) (Auto) 10 % (0-9) Eosinophils (%) (Auto) 0 % (0-3) Basophils (%) (Auto) 1 % (0-3) Neutrophils # (Auto) 18.6 x10^3uL (1.8-7.7) Lymphocytes # (Auto) 2.0 x10^3/uL (1.0-4.8) Monocytes # (Auto) 2.2 x10^3/uL (0.0-1.1) Eosinophils # (Auto) 0.1 x10^3/uL (0.0-0.7) Basophils # (Auto) 0.2 x10^3/uL (0.0-0.2) Sodium Level 136 mmol/L (136-145) Potassium Level 3.7 mmol/L (3.5-5.1) Chloride Level 101 mmol/L (98-107) Carbon Dioxide Level 31 mmol/L (21-32) Anion Gap 4 (6-14) Blood Urea Nitrogen 5 mg/dL (8-26) Creatinine 0.8 mg/dL (0.7-1.3) Estimated GFR (Cockcroft-Gault) 104.5 Glucose Level 160 mg/dL (70-99) Calcium Level 8.1 mg/dL (8.5-10.1) Test 11/25/16 11:34 Glucose (Fingerstick) 136 mg/dL (70-99) Microbiology 11/23/16 Blood Culture - Preliminary, Resulted NO GROWTH AFTER 1 DAY Medications Current Medications Sodium Chloride 1,000 ml @ 1,000 mls/hr Q1H IV Last administered on 11/23/16 18:54; Start 11/23/16 at 14:19; Stop 11/23/16 at 15:18; Status DC Vancomycin HCl (Vanco Per Pharmacy) 1 each PRN DAILY PRN MC SEE COMMENTS; Start 11/23/16 at 15:00; Stop 11/23/16 at 17:58; Status DC Vancomycin HCl 2 gm/Sodium Chloride 500 ml @ 250 mls/hr 1X ONCE IV Last administered on 11/23/16 15:40; Start 11/23/16 at 15:00; Stop 11/23/16 at 16:59 ; Status DC Ondansetron HCl (Zofran) 4 mg PRN Q8HRS PRN IV NAUSEA/VOMITING; Start 11/23/16 at 16:00; Stop 11/23/16 at 16:55; Status DC Morphine Sulfate 2 mg PRN Q2HR PRN IV PAIN Last administered on 11/23/16 20:18 ; Start 11/23/16 at 16:00; Stop 11/24/16 at 15:59; Status DC Ondansetron HCl (Zofran) 4 mg PRN Q6HRS PRN IV NAUSEA/VOMITING Last administered on 11/23/16 17:09; Start 11/23/16 at 17:00; Stop 11/24/16 at 16:59 ; Status DC Insulin Aspart (NovoLOG) 0-9 UNITS TIDWMEALS SQ Last administered on 11/25/16 09:02; Start 11/23/16 at 17:00 Dextrose (Dextrose 50%-Water Syringe) 12.5 gm PRN Q15MIN PRN IV SEE COMMENTS; Start 11/23/16 at 17:00 Metformin HCl (Glucophage) 1,000 mg DAILYWBKFT PO Last administered on 08:45; Start 11/24/16 at 08:00 Oxycodone/ Acetaminophen (Percocet 5/325) 1 tab PRN Q4HRS PRN PO PAIN Last administered on 11/24/16 11:38; Start 11/23/16 at 17:00 Glipizide (Glucotrol) 10 mg BIDBFRMEAL PO Last administered on 11/25/16 08:46 ; Start 11/24/16 at 07:30 Potassium Chloride (Klor-Con) 40 meq 1X ONCE PO Last administered on 18:56; Start 11/23/16 at 18:00; Stop 11/23/16 at 18:01; Status DC Linezolid 300 ml @ 300 mls/hr Q12HR IV Last administered on 11/25/16 08:46; Start 11/23/16 at 19:00 Potassium Chloride (Klor-Con) 40 meq 1X ONCE PO ; Start 11/24/16 at 06:00; Stop 11/24/16 at 06:01; Status Cancel Potassium Chloride (Klor-Con) 40 meq DAILYWBKFT PO Last administered on 08:45; Start 11/25/16 at 08:00 Potassium Chloride (Klor-Con) 40 meq 1X ONCE PO Last administered on 06:32; Start 11/24/16 at 06:30; Stop 11/24/16 at 06:31; Status DC Potassium Chloride (Klor-Con) 40 meq 1X ONCE PO Last administered on 11:38; Start 11/24/16 at 10:30; Stop 11/24/16 at 10:31; Status DC Potassium Chloride (Klor-Con) 40 meq 1X ONCE PO Last administered on 14:59; Start 11/24/16 at 13:30; Stop 11/24/16 at 13:31; Status DC Hydromorphone HCl 30 ml @ 0 mls/hr CONT PRN PRN IV PROTOCOL Last administered on 11/25/16 11:34; Start 11/24/16 at 14:00 Acetaminophen (Tylenol) 650 mg PRN Q6HRS PRN PO MILD PAIN / TEMP Last administered on 11/24/16 23:32; Start 11/24/16 at 23:15 Active Scripts Active Glipizide 10 Mg Tablet 1 Tab PO BID Metformin Hcl 1,000 Mg Tablet 1,000 Mg PO DAILYWBKFT Keflex (Cephalexin) 500 Mg Capsule 1 Cap PO TID Oxycodone-Acetaminophen 5-325 (Oxycodone Hcl/Acetaminophen) 1 Each Tablet 1-2 Tab PO PRN Q4HRS PRN Vitals/I & O Vital Sign - Last 24 Hours 11/24/16 11/24/16 11/24/16 11/24/16 15:00 15:14 19:47 20:00 Temp 99.3 100.5 99.3 100.5 Pulse 98 98 Resp 19 18 18 B/P (MAP) 99/44 (62) 121/63 (82) Pulse Ox 95 96 92 O2 Delivery Room Air Room Air Room Air Room Air 11/24/16 11/25/16 11/25/16 11/25/16 23:48 03:38 07:00 08:00 Temp 101.4 99.9 98.9 101.4 99.9 98.9 Pulse 97 91 78 Resp 18 16 16 B/P (MAP) 118/57 (77) 115/63 (80) 112/62 (79) Pulse Ox 92 93 96 O2 Delivery Room Air Room Air Room Air Room Air 11/25/16 11/25/16 11/25/16 11:34 11:36 12:19 Temp 99.0 99.0 Pulse 89 Resp 22 17 22 B/P (MAP) 126/78 (94) Pulse Ox 96 96 96 O2 Delivery Room Air Room Air Room Air BUSHRA HOGAN III DO Nov 25, 2016 13:20
[2016-11-25 15:01] VITALS: BP 116/69
[2016-11-25] MEDS ORDERED: IOHEXOL 300 MG/ML 75 ML VIAL IV ONE (15:15)
[2016-11-25] MEDS ORDERED: CONTRAST GIVEN MC PRN (15:15)
[2016-11-25 19:00] VITALS: BP 123/72
[2016-11-25 22:51] VITALS: BP 104/62
[2016-11-26] VITALS (12 sets, daily range): BP systolic 101–137; BP diastolic 53–85
[2016-11-26 05:35] LABS: BASO # 0.1 x10^3/uL (0.0-0.2); BASO % 1 % (0-3); EOS % 0 % (0-3); HEMATOCRIT 33.4 % (39.0-53.0); HEMOGLOBIN 11.4 g/dL (13.0-17.5); LYMPH # 2.7 x10^3/uL (1.0-4.8); LYMPH % 14 % (24-48); MEAN CORPUSCULAR HEMOGLOBIN 30 pg (25-35); MEAN CORPUSCULAR HGB CONC 34 g/dL (31-37); MEAN CORPUSCULAR VOLUME 87 fL (79-100); MONO % 9 % (0-9); NEUT % 76 % (31-73); PLATELET COUNT 278 x10^3/uL (140-400); RED BLOOD COUNT 3.85 x10^6/uL (4.30-5.70); WHITE BLOOD COUNT 19.2 x10^3/uL (4.0-11.0)
[2016-11-26 06:07] LABS: CALCIUM 8.6 mg/dL (8.5-10.1); CREATININE 0.7 mg/dL (0.7-1.3); POTASSIUM 3.6 mmol/L (3.5-5.1)
[2016-11-26] MEDS: INSULIN ASPART 300 UNITS/3 ML INSULN.PEN SQ SCH ×3 (08:00→18:25)
[2016-11-26] MEDS: PRILOSEC 20 MG PO SCH (08:00)
[2016-11-26] MEDS: glipiZIDE 5 MG TABLET PO SCH ×2 (09:30→18:20)
[2016-11-26] MEDS: POTASSIUM CHLORIDE 20 MEQ TABLET.ER. PO SCH (09:31)
--- NOTE | 2016-11-26 10:06 | RAD ---
CT abdomen/pelvis Indication: Draining abscess buttock and lower back. Technique: CT abdomen/pelvis with 75 mL of Omnipaque 300 with multiplanar reformats. Comparison: None Findings: Heart is normal in size. No pericardial or pleural effusion. Clear lung bases. Diffuse low-attenuation of the liver parenchyma noted most likely due to fatty infiltration. There is a geographic area of low attenuation in the region of falciform ligament most likely focal fat infiltration. Spleen within normal limits. No radiopaque gallstones. Pancreas is within normal limits. Adrenal glands demonstrate no nodularity. Punctate bilateral nonobstructing renal stones. No suspicious renal lesion. No hydronephrosis. No retroperitoneal adenopathy. No abdominal adenopathy. No bowel obstruction. Normal appendix. Right pelvic sidewall inflammatory changes are noted as demonstrated by fat stranding. Gas is seen within the deep right hemipelvis extending inferiorly and superiorly across the levator ani musculature. The superior extent of the gas is seen at the level of superior acetabular rim. The inferior extent of the gas is below the level of right ischio anal fossa. . 3.3 x 6.3 cm inflammatory phlegmon/fluid collection is seen in the inferior most aspect of the right gluteal cleft in the region of surgical drain. There is suggestion of the decompression of this inflammatory phlegmon/fluid collection into the pocket of gas into the right ischioanal fossa. Enlarged pelvic lymph nodes noted along the pelvic sidewall and along the external iliac chain. The largest measuring 2.4 x 1.8 cm along the right external iliac chain (series 2 image 93). Reactive thickening of the right obturator musculature noted. Bladder is decompressed with Whyte catheter in place limiting optimal evaluation. Prostate and seminal vesicles show no mass lesions. No free pelvic fluid. Presacral inflammatory changes noted. Partially visualized is intramuscular lipoma in the right anterolateral upper 5 measuring 4.5 x 2.0 cm. No gas is seen within the scrotum. No suspicious bony lesions. Mild multilevel degenerative disc disease in the spine. Impression: 1. Moderate amount of gas along the right pelvic sidewall extending superiorly and inferiorly across the levator ani muscle with the inferior extent below the level of ischioanal fossa and superior extent at the level of superior acetabular rim concerning for necrotizing infectious process. There is suggestion of decompression of the inflammatory phlegmon/fluid collection in the region of surgical material/drain into the pocket of gas in the right ischioanal fossa. Reactive pelvic lymphadenopathy. 2. Nonobstructing bilateral punctate renal stones. 3. Hepatic steatosis. Clinical findings were discussed with Dr. Thomas (surgery) on 11/26/2016 at 9:50 4:00 AM. PQRS Compliance Statement: One or more of the following individualized dose reduction techniques were utilized for this examination: 1. Automated exposure control 2. Adjustment of the mA and/or kV according to patient size 3. Use of iterative reconstruction technique
--- NOTE | 2016-11-26 10:50 | PDOC ---
Provider Note Provider Note SURG feels a little better after having drainage from a new open area just lateral to the original abscess afebrile last 24 hrs wound less TTP, small opening just lateral CT results noted will take to OR and debride again to assure adequate drainage d/w KRISHNA Martinez MD Nov 26, 2016 10:50
--- NOTE | 2016-11-26 11:27 | PDOC ---
PROGRESS NOTES Chief Complaint Chief Complaint 1. Cellulitis History of Present Illness History of Present Illness Nurses in room when healthcare team arrived. Nurse indicated PICC line was not successfully placed yesterday. Nurse pointed out second fluid collection was draining lateral to the original site and that she had cleaned and covered the area. Patient awake and able to converse with healthcare team. He mentioned his pain was currently well controlled with PATHOLOGY SECRETARY. Co2 monitor in place under patient' s nose. Vitals Vitals Vital Signs Date Time Temp Pulse Resp B/P (MAP) Pulse Ox O2 Delivery O2 Flow Rate FiO2 11/26/16 11:14 98.2 83 20 117/67 (84) 97 Room Air 98.2 Physical Exam Physical Exam Patient awake laying left lateral recumbent with Co[address] and PATHOLOGY SECRETARY button within reach. Nurse was attending to wound. Some blood present and clean dressing covered wound. General: Alert, Oriented X3, Cooperative, mild distress Heart: Regular rate, No murmurs Lungs: Clear Abdomen: Normal bowel sounds, Soft Extremities: No clubbing, No cyanosis Skin: Other (Wounds on R buttock draining but well dressed. ) Labs LABS Laboratory Tests Test 11/25/16 11:30 11/25/16 11:34 11/25/16 16:03 11/25/16 20:34 White Blood Count 23.1 x10^3/uL (4.0-11.0) Red Blood Count 3.96 x10^6/uL (4.30-5.70) Hemoglobin 11.6 g/dL (13.0-17.5) Hematocrit 34.1 % (39.0-53.0) Mean Corpuscular Volume 86 fL (79-100) Mean Corpuscular Hemoglobin 29 pg (25-35) Mean Corpuscular Hemoglobin Concent 34 g/dL (31-37) Red Cell Distribution Width 13.9 % (11.5-14.5) Platelet Count 293 x10^3/uL (140-400) Neutrophils (%) (Auto) 81 % (31-73) Lymphocytes (%) (Auto) 9 % (24-48) Monocytes (%) (Auto) 10 % (0-9) Eosinophils (%) (Auto) 0 % (0-3) Basophils (%) (Auto) 1 % (0-3) Neutrophils # (Auto) 18.6 x10^3uL (1.8-7.7) Lymphocytes # (Auto) 2.0 x10^3/uL (1.0-4.8) Monocytes # (Auto) 2.2 x10^3/uL (0.0-1.1) Eosinophils # (Auto) 0.1 x10^3/uL (0.0-0.7) Basophils # (Auto) 0.2 x10^3/uL (0.0-0.2) Sodium Level 136 mmol/L (136-145) Potassium Level 3.7 mmol/L (3.5-5.1) Chloride Level 101 mmol/L (98-107) Carbon Dioxide Level 31 mmol/L (21-32) Anion Gap 4 (6-14) Blood Urea Nitrogen 5 mg/dL (8-26) Creatinine 0.8 mg/dL (0.7-1.3) Estimated GFR (Cockcroft-Gault) 104.5 Glucose Level 160 mg/dL (70-99) Calcium Level 8.1 mg/dL (8.5-10.1) Glucose (Fingerstick) 136 mg/dL (70-99) 140 mg/dL (70-99) 141 mg/dL (70-99) Test 11/26/16 04:50 White Blood Count 19.2 x10^3/uL (4.0-11.0) Red Blood Count 3.85 x10^6/uL (4.30-5.70) Hemoglobin 11.4 g/dL (13.0-17.5) Hematocrit 33.4 % (39.0-53.0) Mean Corpuscular Volume 87 fL (79-100) Mean Corpuscular Hemoglobin 30 pg (25-35) Mean Corpuscular Hemoglobin Concent 34 g/dL (31-37) Red Cell Distribution Width 14.0 % (11.5-14.5) Platelet Count 278 x10^3/uL (140-400) Neutrophils (%) (Auto) 76 % (31-73) Lymphocytes (%) (Auto) 14 % (24-48) Monocytes (%) (Auto) 9 % (0-9) Eosinophils (%) (Auto) 0 % (0-3) Basophils (%) (Auto) 1 % (0-3) Neutrophils # (Auto) 14.6 x10^3uL (1.8-7.7) Lymphocytes # (Auto) 2.7 x10^3/uL (1.0-4.8) Monocytes # (Auto) 1.7 x10^3/uL (0.0-1.1) Eosinophils # (Auto) 0.1 x10^3/uL (0.0-0.7) Basophils # (Auto) 0.1 x10^3/uL (0.0-0.2) Sodium Level 138 mmol/L (136-145) Potassium Level 3.6 mmol/L (3.5-5.1) Chloride Level 101 mmol/L (98-107) Carbon Dioxide Level 29 mmol/L (21-32) Anion Gap 8 (6-14) Blood Urea Nitrogen 7 mg/dL (8-26) Creatinine 0.7 mg/dL (0.7-1.3) Estimated GFR (Cockcroft-Gault) 122.0 Glucose Level 99 mg/dL (70-99) Calcium Level 8.6 mg/dL (8.5-10.1) Review of Systems Review of Systems Patient admitted to pain but said it was well controlled with medicine. Patient tired. Assessment and Plan Assessmemt and Plan Problems Medical Problems: (1) Cellulitis Status: Acute Assessment: 1. Cellulitis Plan: 1. Change status to inpatient 2. continue antibiotics 3. continue home medications 4. Appreciate surgery plan of care 5. Continue with PATHOLOGY SECRETARY for pain 6. Continue with Co2 monitor Problems: Comment Review of Relevant I have reviewed the following items laz (where applicable) has been applied. Labs Laboratory Tests Test 11/24/16 16:14 11/24/16 20:26 11/25/16 07:49 11/25/16 11:30 Glucose (Fingerstick) 129 mg/dL (70-99) 137 mg/dL (70-99) 159 mg/dL (70-99) White Blood Count 23.1 x10^3/uL (4.0-11.0) Red Blood Count 3.96 x10^6/uL (4.30-5.70) Hemoglobin 11.6 g/dL (13.0-17.5) Hematocrit 34.1 % (39.0-53.0) Mean Corpuscular Volume 86 fL (79-100) Mean Corpuscular Hemoglobin 29 pg (25-35) Mean Corpuscular Hemoglobin Concent 34 g/dL (31-37) Red Cell Distribution Width 13.9 % (11.5-14.5) Platelet Count 293 x10^3/uL (140-400) Neutrophils (%) (Auto) 81 % (31-73) Lymphocytes (%) (Auto) 9 % (24-48) Monocytes (%) (Auto) 10 % (0-9) Eosinophils (%) (Auto) 0 % (0-3) Basophils (%) (Auto) 1 % (0-3) Neutrophils # (Auto) 18.6 x10^3uL (1.8-7.7) Lymphocytes # (Auto) 2.0 x10^3/uL (1.0-4.8) Monocytes # (Auto) 2.2 x10^3/uL (0.0-1.1) Eosinophils # (Auto) 0.1 x10^3/uL (0.0-0.7) Basophils # (Auto) 0.2 x10^3/uL (0.0-0.2) Sodium Level 136 mmol/L (136-145) Potassium Level 3.7 mmol/L (3.5-5.1) Chloride Level 101 mmol/L (98-107) Carbon Dioxide Level 31 mmol/L (21-32) Anion Gap 4 (6-14) Blood Urea Nitrogen 5 mg/dL (8-26) Creatinine 0.8 mg/dL (0.7-1.3) Estimated GFR (Cockcroft-Gault) 104.5 Glucose Level 160 mg/dL (70-99) Calcium Level 8.1 mg/dL (8.5-10.1) Test 11/25/16 11:34 11/25/16 16:03 11/25/16 20:34 11/26/16 04:50 Glucose (Fingerstick) 136 mg/dL (70-99) 140 mg/dL (70-99) 141 mg/dL (70-99) White Blood Count 19.2 x10^3/uL (4.0-11.0) Red Blood Count 3.85 x10^6/uL (4.30-5.70) Hemoglobin 11.4 g/dL (13.0-17.5) Hematocrit 33.4 % (39.0-53.0) Mean Corpuscular Volume 87 fL (79-100) Mean Corpuscular Hemoglobin 30 pg (25-35) Mean Corpuscular Hemoglobin Concent 34 g/dL (31-37) Red Cell Distribution Width 14.0 % (11.5-14.5) Platelet Count 278 x10^3/uL (140-400) Neutrophils (%) (Auto) 76 % (31-73) Lymphocytes (%) (Auto) 14 % (24-48) Monocytes (%) (Auto) 9 % (0-9) Eosinophils (%) (Auto) 0 % (0-3) Basophils (%) (Auto) 1 % (0-3) Neutrophils # (Auto) 14.6 x10^3uL (1.8-7.7) Lymphocytes # (Auto) 2.7 x10^3/uL (1.0-4.8) Monocytes # (Auto) 1.7 x10^3/uL (0.0-1.1) Eosinophils # (Auto) 0.1 x10^3/uL (0.0-0.7) Basophils # (Auto) 0.1 x10^3/uL (0.0-0.2) Sodium Level 138 mmol/L (136-145) Potassium Level 3.6 mmol/L (3.5-5.1) Chloride Level 101 mmol/L (98-107) Carbon Dioxide Level 29 mmol/L (21-32) Anion Gap 8 (6-14) Blood Urea Nitrogen 7 mg/dL (8-26) Creatinine 0.7 mg/dL (0.7-1.3) Estimated GFR (Cockcroft-Gault) 122.0 Glucose Level 99 mg/dL (70-99) Calcium Level 8.6 mg/dL (8.5-10.1) Laboratory Tests Test 11/25/16 11:30 11/25/16 11:34 11/25/16 16:03 11/25/16 20:34 White Blood Count 23.1 x10^3/uL (4.0-11.0) Red Blood Count 3.96 x10^6/uL (4.30-5.70) Hemoglobin 11.6 g/dL (13.0-17.5) Hematocrit 34.1 % (39.0-53.0) Mean Corpuscular Volume 86 fL (79-100) Mean Corpuscular Hemoglobin 29 pg (25-35) Mean Corpuscular Hemoglobin Concent 34 g/dL (31-37) Red Cell Distribution Width 13.9 % (11.5-14.5) Platelet Count 293 x10^3/uL (140-400) Neutrophils (%) (Auto) 81 % (31-73) Lymphocytes (%) (Auto) 9 % (24-48) Monocytes (%) (Auto) 10 % (0-9) Eosinophils (%) (Auto) 0 % (0-3) Basophils (%) (Auto) 1 % (0-3) Neutrophils # (Auto) 18.6 x10^3uL (1.8-7.7) Lymphocytes # (Auto) 2.0 x10^3/uL (1.0-4.8) Monocytes # (Auto) 2.2 x10^3/uL (0.0-1.1) Eosinophils # (Auto) 0.1 x10^3/uL (0.0-0.7) Basophils # (Auto) 0.2 x10^3/uL (0.0-0.2) Sodium Level 136 mmol/L (136-145) Potassium Level 3.7 mmol/L (3.5-5.1) Chloride Level 101 mmol/L (98-107) Carbon Dioxide Level 31 mmol/L (21-32) Anion Gap 4 (6-14) Blood Urea Nitrogen 5 mg/dL (8-26) Creatinine 0.8 mg/dL (0.7-1.3) Estimated GFR (Cockcroft-Gault) 104.5 Glucose Level 160 mg/dL (70-99) Calcium Level 8.1 mg/dL (8.5-10.1) Glucose (Fingerstick) 136 mg/dL (70-99) 140 mg/dL (70-99) 141 mg/dL (70-99) Test 11/26/16 04:50 White Blood Count 19.2 x10^3/uL (4.0-11.0) Red Blood Count 3.85 x10^6/uL (4.30-5.70) Hemoglobin 11.4 g/dL (13.0-17.5) Hematocrit 33.4 % (39.0-53.0) Mean Corpuscular Volume 87 fL (79-100) Mean Corpuscular Hemoglobin 30 pg (25-35) Mean Corpuscular Hemoglobin Concent 34 g/dL (31-37) Red Cell Distribution Width 14.0 % (11.5-14.5) Platelet Count 278 x10^3/uL (140-400) Neutrophils (%) (Auto) 76 % (31-73) Lymphocytes (%) (Auto) 14 % (24-48) Monocytes (%) (Auto) 9 % (0-9) Eosinophils (%) (Auto) 0 % (0-3) Basophils (%) (Auto) 1 % (0-3) Neutrophils # (Auto) 14.6 x10^3uL (1.8-7.7) Lymphocytes # (Auto) 2.7 x10^3/uL (1.0-4.8) Monocytes # (Auto) 1.7 x10^3/uL (0.0-1.1) Eosinophils # (Auto) 0.1 x10^3/uL (0.0-0.7) Basophils # (Auto) 0.1 x10^3/uL (0.0-0.2) Sodium Level 138 mmol/L (136-145) Potassium Level 3.6 mmol/L (3.5-5.1) Chloride Level 101 mmol/L (98-107) Carbon Dioxide Level 29 mmol/L (21-32) Anion Gap 8 (6-14) Blood Urea Nitrogen 7 mg/dL (8-26) Creatinine 0.7 mg/dL (0.7-1.3) Estimated GFR (Cockcroft-Gault) 122.0 Glucose Level 99 mg/dL (70-99) Calcium Level 8.6 mg/dL (8.5-10.1) Microbiology 11/23/16 Blood Culture - Preliminary, Resulted NO GROWTH AFTER 1 DAY Medications Current Medications Sodium Chloride 1,000 ml @ 1,000 mls/hr Q1H IV Last administered on 11/23/16t 18:54; Start 11/23/16 at 14:19; Stop 11/23/16 at 15:18; Status DC Vancomycin HCl (Vanco Per Pharmacy) 1 each PRN DAILY PRN MC SEE COMMENTS; Start 11/23/16 at 15:00; Stop 11/23/16 at 17:58; Status DC Vancomycin HCl 2 gm/Sodium Chloride 500 ml @ 250 mls/hr 1X ONCE IV Last administered on 11/23/16 15:40; Start 11/23/16 at 15:00; Stop 11/23/16 at 16:59 ; Status DC Ondansetron HCl (Zofran) 4 mg PRN Q8HRS PRN IV NAUSEA/VOMITING; Start 11/23/16 at 16:00; Stop 11/23/16 at 16:55; Status DC Morphine Sulfate 2 mg PRN Q2HR PRN IV PAIN Last administered on 11/23/16 20:18 ; Start 11/23/16 at 16:00; Stop 11/24/16 at 15:59; Status DC Ondansetron HCl (Zofran) 4 mg PRN Q6HRS PRN IV NAUSEA/VOMITING Last administered on 11/23/16 17:09; Start 11/23/16 at 17:00; Stop 11/24/16 at 16:59 ; Status DC Insulin Aspart (NovoLOG) 0-9 UNITS TIDWMEALS SQ Last administered on 11/25/16 09:02; Start 11/23/16 at 17:00 Dextrose (Dextrose 50%-Water Syringe) 12.5 gm PRN Q15MIN PRN IV SEE COMMENTS; Start 11/23/16 at 17:00 Metformin HCl (Glucophage) 1,000 mg DAILYWBKFT PO Last administered on 08:45; Start 11/24/16 at 08:00; Stop 11/25/16 at 15:10; Status DC Oxycodone/ Acetaminophen (Percocet 5/325) 1 tab PRN Q4HRS PRN PO PAIN Last administered on 11/24/16 11:38; Start 11/23/16 at 17:00 Glipizide (Glucotrol) 10 mg BIDBFRMEAL PO Last administered on 11/26/16 09:30 ; Start 11/24/16 at 07:30 Potassium Chloride (Klor-Con) 40 meq 1X ONCE PO Last administered on 18:56; Start 11/23/16 at 18:00; Stop 11/23/16 at 18:01; Status DC Linezolid 300 ml @ 300 mls/hr Q12HR IV Last administered on 11/26/16 09:31; Start 11/23/16 at 19:00 Potassium Chloride (Klor-Con) 40 meq 1X ONCE PO ; Start 11/24/16 at 06:00; Stop 11/24/16 at 06:01; Status Cancel Potassium Chloride (Klor-Con) 40 meq DAILYWBKFT PO Last administered on 09:31; Start 11/25/16 at 08:00 Potassium Chloride (Klor-Con) 40 meq 1X ONCE PO Last administered on 06:32; Start 11/24/16 at 06:30; Stop 11/24/16 at 06:31; Status DC Potassium Chloride (Klor-Con) 40 meq 1X ONCE PO Last administered on 11:38; Start 11/24/16 at 10:30; Stop 11/24/16 at 10:31; Status DC Potassium Chloride (Klor-Con) 40 meq 1X ONCE PO Last administered on 14:59; Start 11/24/16 at 13:30; Stop 11/24/16 at 13:31; Status DC Hydromorphone HCl 30 ml @ 0 mls/hr CONT PRN PRN IV PROTOCOL Last administered on 11/26/16 06:28; Start 11/24/16 at 14:00 Acetaminophen (Tylenol) 650 mg PRN Q6HRS PRN PO MILD PAIN / TEMP Last administered on 11/24/16 23:32; Start 11/24/16 at 23:15 Non-Formulary Medication 1 ea DAILY08 PO Last administered on 11/26/16 08:00; Start 11/26/16 at 08:00 Iohexol (Omnipaque 300 Mg/ml) 75 ml 1X ONCE IV Last administered on 11/25/16 17:44; Start 11/25/16 at 15:15; Stop 11/25/16 at 15:16; Status DC Info (Do NOT chart on this entry -- for MONITORING) 1 each PRN DAILY PRN MC SEE COMMENTS; Start 11/25/16 at 15:15; Stop 11/27/16 at 15:14 Metformin HCl (Glucophage) 1,000 mg DAILYWBKFT PO ; Start 11/28/16 at 08:00 Active Scripts Active Glipizide 10 Mg Tablet 1 Tab PO BID Metformin Hcl 1,000 Mg Tablet 1,000 Mg PO DAILYWBKFT Keflex (Cephalexin) 500 Mg Capsule 1 Cap PO TID Oxycodone-Acetaminophen 5-325 (Oxycodone Hcl/Acetaminophen) 1 Each Tablet 1-2 Tab PO PRN Q4HRS PRN Vitals/I & O Vital Sign - Last 24 Hours 11/25/16 11/25/16 11/25/16 11/25/16 11:34 11:36 15:01 19:00 Temp 99.0 99.1 97.9 99.0 99.1 97.9 Pulse 89 78 78 Resp 22 17 17 20 B/P (MAP) 126/78 (94) 116/69 (85) 123/72 (89) Pulse Ox 96 96 96 94 O2 Delivery Room Air Room Air Room Air Room Air 11/25/16 11/25/16 11/26/16 11/26/16 20:00 22:51 03:10 06:58 Temp 97.9 97.7 97.9 97.7 Pulse 92 83 Resp 20 20 21 B/P (MAP) 104/62 (76) 103/60 (74) Pulse Ox 95 92 97 O2 Delivery Room Air Room Air Room Air Room Air 11/26/16 11/26/16 11/26/16 11/26/16 07:00 08:00 10:28 11:14 Temp 98.2 98.2 98.2 98.2 Pulse 83 83 Resp 20 20 B/P (MAP) 117/67 (84) 117/67 (84) Pulse Ox 97 97 O2 Delivery Room Air Room Air Room Air Room Air BUSHRA HOGAN III DO Nov 26, 2016 11:27
[2016-11-26] MEDS ORDERED: IV RINGERS,LACTATED 1000ML 1,000 ML IV SCH (12:26)
[2016-11-26] MEDS ORDERED: LIDOCAINE 1% PF 2 ML VIAL. ID PRN (12:30)
[2016-11-26] MEDS ORDERED: PROCHLORPERAZINE 10 MG/2 ML VIAL. IV PRN (12:30)
[2016-11-26] MEDS ORDERED: MORPHINE SULFATE 2 MG/ML DISP.SYRIN. IV PRN (12:30)
[2016-11-26] MEDS ORDERED: BUPIVACAINE-EPI 0.5%-1:200000 50 ML VIAL. ONE (12:30)
[2016-11-26] MEDS ORDERED: fentaNYL PF VIAL 100 MCG/2 ML VIAL IV PRN ×2 (12:30)
[2016-11-26] MEDS ORDERED: ONDANSETRON PF 4 MG/2 ML VIAL. IV PRN (12:30)
[2016-11-26] MEDS ORDERED: fentaNYL PF VIAL 100 MCG/2 ML VIAL ONE ×2 (12:59→14:58)
[2016-11-26] MEDS ORDERED: DEXAMETHASONE SOD PHOS 20 MG/5 ML VIAL. ONE (12:59)
[2016-11-26] MEDS ORDERED: PROPOFOL 20 ML IV ONE (12:59)
[2016-11-26] MEDS ORDERED: ONDANSETRON PF 4 MG/2 ML VIAL. ONE (12:59)
[2016-11-26] MEDS ORDERED: LIDOCAINE 2% PF Vial for OR 5 ML VIAL. ONE (12:59)
[2016-11-26] MEDS ORDERED: SEVOFLURANE 31 TO 60 MINUTES. IH ONE (13:01)
[2016-11-26] MEDS ORDERED: PHENYLEPHRINE in 0.9% NACL PF 1 MG/10 ML DISP.SYRIN. IV ONE (14:16)
[2016-11-26] MEDS ORDERED: SEVOFLURANE 61 TO 120 MINUTES. IH ONE (15:16)
--- NOTE | 2016-11-26 16:08 | PDOC ---
BRIEF OPERATIVE NOTE Date: Nov 26, 2016 Pre-Op Diagnosis recurrent gluteal abscess Post-Op Diagnosis same Procedure Performed excisional debridement of skin, fat and muscle right buttocks placement of wound vac Surgeon William User Support Specialist Cathy Lugo Anesthesia Type: General Blood Loss 250cc IV Fluid 850cc Specimens Obtained cultures Findings cavity extending superio-lateral to previous tract Complications none KRISHNA HERNÁNDEZ MD Nov 26, 2016 16:08
[2016-11-26] MEDS: HYDROmorphone 2 MG/ML VIAL IV PRN ×4 (16:26→16:57)
[2016-11-27 03:10] VITALS: BP 109/58
[2016-11-27 06:05] LABS: BASO % 0 % (0-3); EOS % 0 % (0-3); HEMATOCRIT 32.8 % (39.0-53.0); HEMOGLOBIN 10.9 g/dL (13.0-17.5); LYMPH # 1.7 x10^3/uL (1.0-4.8); LYMPH % 9 % (24-48); MEAN CORPUSCULAR HEMOGLOBIN 29 pg (25-35); MEAN CORPUSCULAR HGB CONC 33 g/dL (31-37); MEAN CORPUSCULAR VOLUME 88 fL (79-100); MONO % 5 % (0-9); NEUT % 86 % (31-73); PLATELET COUNT 361 x10^3/uL (140-400); RED BLOOD COUNT 3.75 x10^6/uL (4.30-5.70); RED CELL DISTRIBUTION WIDTH 13.8 % (11.5-14.5); WHITE BLOOD COUNT 19.8 x10^3/uL (4.0-11.0)
[2016-11-27 06:25] LABS: CALCIUM 8.3 mg/dL (8.5-10.1); CREATININE 0.7 mg/dL (0.7-1.3); POTASSIUM 4.3 mmol/L (3.5-5.1)
[2016-11-27 07:00] VITALS: BP 117/70
[2016-11-27] MEDS: glipiZIDE 5 MG TABLET PO SCH ×2 (08:27→17:09)
[2016-11-27] MEDS: PRILOSEC 20 MG PO SCH (08:28)
[2016-11-27] MEDS: POTASSIUM CHLORIDE 20 MEQ TABLET.ER. PO SCH (08:28)
[2016-11-27] MEDS: INSULIN ASPART 300 UNITS/3 ML INSULN.PEN SQ SCH ×3 (08:44→17:12)
--- NOTE | 2016-11-27 10:40 | PDOC ---
PROGRESS NOTES Chief Complaint Chief Complaint 1. Cellulitis History of Present Illness History of Present Illness Patient reclining in bed when team arrived. Patient says he has minimal pain and has been pushing the button for his CAN TOP SETTER less. He says the wound vac helps to minimize the pain. Instructed the patient that when discharged he will need a po medication. Patient says he understands and is careful with pain medication because his father and brother had substance related issues. Vitals Vitals Vital Signs Date Time Temp Pulse Resp B/P (MAP) Pulse Ox O2 Delivery O2 Flow Rate FiO2 11/27/16 09:10 Room Air 11/27/16 08:15 98 2.0 11/27/16 07:00 98.3 91 20 117/70 (86) 98.3 Physical Exam Physical Exam Patient awake laying supine in bed. Patient cordial and conversant with appropriate, complete responses. Wound vac in place and functioning. General: Alert, Oriented X3, Cooperative, mild distress Heart: Regular rate, No murmurs Lungs: Clear Abdomen: Normal bowel sounds, Soft Extremities: No clubbing, No cyanosis Skin: Other (Wound vac in place to wound on R buttock. ) Labs LABS Laboratory Tests Test 11/26/16 12:39 11/26/16 16:35 11/26/16 17:48 11/26/16 20:41 Glucose (Fingerstick) 151 mg/dL (70-99) 140 mg/dL (70-99) 185 mg/dL (70-99) 300 mg/dL (70-99) Test 11/27/16 04:55 11/27/16 07:30 White Blood Count 19.8 x10^3/uL (4.0-11.0) Red Blood Count 3.75 x10^6/uL (4.30-5.70) Hemoglobin 10.9 g/dL (13.0-17.5) Hematocrit 32.8 % (39.0-53.0) Mean Corpuscular Volume 88 fL (79-100) Mean Corpuscular Hemoglobin 29 pg (25-35) Mean Corpuscular Hemoglobin Concent 33 g/dL (31-37) Red Cell Distribution Width 13.8 % (11.5-14.5) Platelet Count 361 x10^3/uL (140-400) Neutrophils (%) (Auto) 86 % (31-73) Lymphocytes (%) (Auto) 9 % (24-48) Monocytes (%) (Auto) 5 % (0-9) Eosinophils (%) (Auto) 0 % (0-3) Basophils (%) (Auto) 0 % (0-3) Neutrophils # (Auto) 17.0 x10^3uL (1.8-7.7) Lymphocytes # (Auto) 1.7 x10^3/uL (1.0-4.8) Monocytes # (Auto) 1.0 x10^3/uL (0.0-1.1) Eosinophils # (Auto) 0.0 x10^3/uL (0.0-0.7) Basophils # (Auto) 0.0 x10^3/uL (0.0-0.2) Sodium Level 136 mmol/L (136-145) Potassium Level 4.3 mmol/L (3.5-5.1) Chloride Level 98 mmol/L (98-107) Carbon Dioxide Level 31 mmol/L (21-32) Anion Gap 7 (6-14) Blood Urea Nitrogen 10 mg/dL (8-26) Creatinine 0.7 mg/dL (0.7-1.3) Estimated GFR (Cockcroft-Gault) 122.0 Glucose Level 200 mg/dL (70-99) Calcium Level 8.3 mg/dL (8.5-10.1) Glucose (Fingerstick) 196 mg/dL (70-99) Review of Systems Review of Systems Patient denies pain. Patient indicates hunger. Patient having bowel movements. Assessment and Plan Assessmemt and Plan Problems Medical Problems: (1) Cellulitis Status: Acute Assessment: 1. Cellulitis Plan: 1. continue abx 2. appreciate wound care plan for case 3. Patient counseled on importance of minimizing CAN TOP SETTER use 4. Continue home meds 5. Recheck labs 6. Hope to dc soon (possibly 11/28?) if okay with subspecialists.. Problems: Comment Review of Relevant I have reviewed the following items laz (where applicable) has been applied. Labs Laboratory Tests Test 11/25/16 11:30 11/25/16 11:34 11/25/16 16:03 11/25/16 20:34 White Blood Count 23.1 x10^3/uL (4.0-11.0) Red Blood Count 3.96 x10^6/uL (4.30-5.70) Hemoglobin 11.6 g/dL (13.0-17.5) Hematocrit 34.1 % (39.0-53.0) Mean Corpuscular Volume 86 fL (79-100) Mean Corpuscular Hemoglobin 29 pg (25-35) Mean Corpuscular Hemoglobin Concent 34 g/dL (31-37) Red Cell Distribution Width 13.9 % (11.5-14.5) Platelet Count 293 x10^3/uL (140-400) Neutrophils (%) (Auto) 81 % (31-73) Lymphocytes (%) (Auto) 9 % (24-48) Monocytes (%) (Auto) 10 % (0-9) Eosinophils (%) (Auto) 0 % (0-3) Basophils (%) (Auto) 1 % (0-3) Neutrophils # (Auto) 18.6 x10^3uL (1.8-7.7) Lymphocytes # (Auto) 2.0 x10^3/uL (1.0-4.8) Monocytes # (Auto) 2.2 x10^3/uL (0.0-1.1) Eosinophils # (Auto) 0.1 x10^3/uL (0.0-0.7) Basophils # (Auto) 0.2 x10^3/uL (0.0-0.2) Sodium Level 136 mmol/L (136-145) Potassium Level 3.7 mmol/L (3.5-5.1) Chloride Level 101 mmol/L (98-107) Carbon Dioxide Level 31 mmol/L (21-32) Anion Gap 4 (6-14) Blood Urea Nitrogen 5 mg/dL (8-26) Creatinine 0.8 mg/dL (0.7-1.3) Estimated GFR (Cockcroft-Gault) 104.5 Glucose Level 160 mg/dL (70-99) Calcium Level 8.1 mg/dL (8.5-10.1) Glucose (Fingerstick) 136 mg/dL (70-99) 140 mg/dL (70-99) 141 mg/dL (70-99) Test 11/26/16 04:50 11/26/16 12:39 11/26/16 16:35 11/26/16 17:48 White Blood Count 19.2 x10^3/uL (4.0-11.0) Red Blood Count 3.85 x10^6/uL (4.30-5.70) Hemoglobin 11.4 g/dL (13.0-17.5) Hematocrit 33.4 % (39.0-53.0) Mean Corpuscular Volume 87 fL (79-100) Mean Corpuscular Hemoglobin 30 pg (25-35) Mean Corpuscular Hemoglobin Concent 34 g/dL (31-37) Red Cell Distribution Width 14.0 % (11.5-14.5) Platelet Count 278 x10^3/uL (140-400) Neutrophils (%) (Auto) 76 % (31-73) Lymphocytes (%) (Auto) 14 % (24-48) Monocytes (%) (Auto) 9 % (0-9) Eosinophils (%) (Auto) 0 % (0-3) Basophils (%) (Auto) 1 % (0-3) Neutrophils # (Auto) 14.6 x10^3uL (1.8-7.7) Lymphocytes # (Auto) 2.7 x10^3/uL (1.0-4.8) Monocytes # (Auto) 1.7 x10^3/uL (0.0-1.1) Eosinophils # (Auto) 0.1 x10^3/uL (0.0-0.7) Basophils # (Auto) 0.1 x10^3/uL (0.0-0.2) Sodium Level 138 mmol/L (136-145) Potassium Level 3.6 mmol/L (3.5-5.1) Chloride Level 101 mmol/L (98-107) Carbon Dioxide Level 29 mmol/L (21-32) Anion Gap 8 (6-14) Blood Urea Nitrogen 7 mg/dL (8-26) Creatinine 0.7 mg/dL (0.7-1.3) Estimated GFR (Cockcroft-Gault) 122.0 Glucose Level 99 mg/dL (70-99) Calcium Level 8.6 mg/dL (8.5-10.1) Glucose (Fingerstick) 151 mg/dL (70-99) 140 mg/dL (70-99) 185 mg/dL (70-99) Test 11/26/16 20:41 10/3/17 04:55 11/27/16 07:30 Glucose (Fingerstick) 300 mg/dL (70-99) 196 mg/dL (70-99) White Blood Count 19.8 x10^3/uL (4.0-11.0) Red Blood Count 3.75 x10^6/uL (4.30-5.70) Hemoglobin 10.9 g/dL (13.0-17.5) Hematocrit 32.8 % (39.0-53.0) Mean Corpuscular Volume 88 fL (79-100) Mean Corpuscular Hemoglobin 29 pg (25-35) Mean Corpuscular Hemoglobin Concent 33 g/dL (31-37) Red Cell Distribution Width 13.8 % (11.5-14.5) Platelet Count 361 x10^3/uL (140-400) Neutrophils (%) (Auto) 86 % (31-73) Lymphocytes (%) (Auto) 9 % (24-48) Monocytes (%) (Auto) 5 % (0-9) Eosinophils (%) (Auto) 0 % (0-3) Basophils (%) (Auto) 0 % (0-3) Neutrophils # (Auto) 17.0 x10^3uL (1.8-7.7) Lymphocytes # (Auto) 1.7 x10^3/uL (1.0-4.8) Monocytes # (Auto) 1.0 x10^3/uL (0.0-1.1) Eosinophils # (Auto) 0.0 x10^3/uL (0.0-0.7) Basophils # (Auto) 0.0 x10^3/uL (0.0-0.2) Sodium Level 136 mmol/L (136-145) Potassium Level 4.3 mmol/L (3.5-5.1) Chloride Level 98 mmol/L (98-107) Carbon Dioxide Level 31 mmol/L (21-32) Anion Gap 7 (6-14) Blood Urea Nitrogen 10 mg/dL (8-26) Creatinine 0.7 mg/dL (0.7-1.3) Estimated GFR (Cockcroft-Gault) 122.0 Glucose Level 200 mg/dL (70-99) Calcium Level 8.3 mg/dL (8.5-10.1) Laboratory Tests Test 11/26/16 12:39 11/26/16 16:35 11/26/16 17:48 11/26/16 20:41 Glucose (Fingerstick) 151 mg/dL (70-99) 140 mg/dL (70-99) 185 mg/dL (70-99) 300 mg/dL (70-99) Test 11/27/16 04:55 11/27/16 07:30 White Blood Count 19.8 x10^3/uL (4.0-11.0) Red Blood Count 3.75 x10^6/uL (4.30-5.70) Hemoglobin 10.9 g/dL (13.0-17.5) Hematocrit 32.8 % (39.0-53.0) Mean Corpuscular Volume 88 fL (79-100) Mean Corpuscular Hemoglobin 29 pg (25-35) Mean Corpuscular Hemoglobin Concent 33 g/dL (31-37) Red Cell Distribution Width 13.8 % (11.5-14.5) Platelet Count 361 x10^3/uL (140-400) Neutrophils (%) (Auto) 86 % (31-73) Lymphocytes (%) (Auto) 9 % (24-48) Monocytes (%) (Auto) 5 % (0-9) Eosinophils (%) (Auto) 0 % (0-3) Basophils (%) (Auto) 0 % (0-3) Neutrophils # (Auto) 17.0 x10^3uL (1.8-7.7) Lymphocytes # (Auto) 1.7 x10^3/uL (1.0-4.8) Monocytes # (Auto) 1.0 x10^3/uL (0.0-1.1) Eosinophils # (Auto) 0.0 x10^3/uL (0.0-0.7) Basophils # (Auto) 0.0 x10^3/uL (0.0-0.2) Sodium Level 136 mmol/L (136-145) Potassium Level 4.3 mmol/L (3.5-5.1) Chloride Level 98 mmol/L (98-107) Carbon Dioxide Level 31 mmol/L (21-32) Anion Gap 7 (6-14) Blood Urea Nitrogen 10 mg/dL (8-26) Creatinine 0.7 mg/dL (0.7-1.3) Estimated GFR (Cockcroft-Gault) 122.0 Glucose Level 200 mg/dL (70-99) Calcium Level 8.3 mg/dL (8.5-10.1) Glucose (Fingerstick) 196 mg/dL (70-99) Microbiology 11/23/16 Blood Culture - Preliminary, Resulted NO GROWTH AFTER 2 DAYS 11/26/16 Gram Stain - Final, Complete Medications Current Medications Sodium Chloride 1,000 ml @ 1,000 mls/hr Q1H IV Last administered on 11/23/16 18:54; Start 11/23/16 at 14:19; Stop 11/23/16 at 15:18; Status DC Vancomycin HCl (Vanco Per Pharmacy) 1 each PRN DAILY PRN MC SEE COMMENTS; Start 11/23/16 at 15:00; Stop 11/23/16 at 17:58; Status DC Vancomycin HCl 2 gm/Sodium Chloride 500 ml @ 250 mls/hr 1X ONCE IV Last administered on 11/23/16 15:40; Start 11/23/16 at 15:00; Stop 11/23/16 at 16:59 ; Status DC Ondansetron HCl (Zofran) 4 mg PRN Q8HRS PRN IV NAUSEA/VOMITING; Start 11/23/16 at 16:00; Stop 11/23/16 at 16:55; Status DC Morphine Sulfate 2 mg PRN Q2HR PRN IV PAIN Last administered on 11/23/16 20:18 ; Start 11/23/16 at 16:00; Stop 11/24/16 at 15:59; Status DC Ondansetron HCl (Zofran) 4 mg PRN Q6HRS PRN IV NAUSEA/VOMITING Last administered on 11/23/16 17:09; Start 11/23/16 at 17:00; Stop 11/24/16 at 16:59 ; Status DC Insulin Aspart (NovoLOG) 0-9 UNITS TIDWMEALS SQ Last administered on 11/27/16 08:44; Start 11/23/16 at 17:00 Dextrose (Dextrose 50%-Water Syringe) 12.5 gm PRN Q15MIN PRN IV SEE COMMENTS; Start 11/23/16 at 17:00 Metformin HCl (Glucophage) 1,000 mg DAILYWBKFT PO Last administered on 08:45; Start 11/24/16 at 08:00; Stop 11/25/16 at 15:10; Status DC Oxycodone/ Acetaminophen (Percocet 5/325) 1 tab PRN Q4HRS PRN PO PAIN Last administered on 11/24/16 11:38; Start 11/23/16 at 17:00 Glipizide (Glucotrol) 10 mg BIDBFRMEAL PO Last administered on 11/27/16 08:27 ; Start 11/24/16 at 07:30 Potassium Chloride (Klor-Con) 40 meq 1X ONCE PO Last administered on 18:56; Start 11/23/16 at 18:00; Stop 11/23/16 at 18:01; Status DC Linezolid 300 ml @ 300 mls/hr Q12HR IV Last administered on 11/27/16 08:41; Start 11/23/16 at 19:00 Potassium Chloride (Klor-Con) 40 meq 1X ONCE PO ; Start 11/24/16 at 06:00; Stop 11/24/16 at 06:01; Status Cancel Potassium Chloride (Klor-Con) 40 meq DAILYWBKFT PO Last administered on 08:28; Start 11/25/16 at 08:00 Potassium Chloride (Klor-Con) 40 meq 1X ONCE PO Last administered on 06:32; Start 11/24/16 at 06:30; Stop 11/24/16 at 06:31; Status DC Potassium Chloride (Klor-Con) 40 meq 1X ONCE PO Last administered on 11:38; Start 11/24/16 at 10:30; Stop 11/24/16 at 10:31; Status DC Potassium Chloride (Klor-Con) 40 meq 1X ONCE PO Last administered on 14:59; Start 11/24/16 at 13:30; Stop 11/24/16 at 13:31; Status DC Hydromorphone HCl 30 ml @ 0 mls/hr CONT PRN PRN IV PROTOCOL Last administered on 11/27/16 07:45; Start 11/24/16 at 14:00 Acetaminophen (Tylenol) 650 mg PRN Q6HRS PRN PO MILD PAIN / TEMP Last administered on 11/24/16 23:32; Start 11/24/16 at 23:15 Non-Formulary Medication 1 ea DAILY08 PO Last administered on 11/27/16 08:28; Start 11/26/16 at 08:00 Iohexol (Omnipaque 300 Mg/ml) 75 ml 1X ONCE IV Last administered on 11/25/16 17:44; Start 11/25/16 at 15:15; Stop 11/25/16 at 15:16; Status DC Info (Do NOT chart on this entry -- for MONITORING) 1 each PRN DAILY PRN MC SEE COMMENTS; Start 11/25/16 at 15:15; Stop 11/27/16 at 15:14 Metformin HCl (Glucophage) 1,000 mg DAILYWBKFT PO ; Start 11/28/16 at 08:00 Ondansetron HCl (Zofran) 4 mg PRN Q6HRS PRN IV NAUSEA/VOMITING; Start 11/26/16 at 12:30; Stop 11/27/16 at 12:29 Fentanyl Citrate (Fentanyl 2ml Vial) 25 mcg PRN Q5MIN PRN IV MILD PAIN; Start 11/26/16 at 12:30; Stop 11/27/16 at 12:29 Fentanyl Citrate (Fentanyl 2ml Vial) 50 mcg PRN Q5MIN PRN IV MODERATE PAIN; Start 11/26/16 at 12:30; Stop 11/27/16 at 12:29 Morphine Sulfate 1 mg PRN Q10MIN PRN IV SEVERE PAIN; Start 11/26/16 at 12:30; Stop 11/27/16 at 12:29 Ringer's Solution 1,000 ml @ 30 mls/hr Q24H IV ; Start 11/26/16 at 12:26; Stop 11/27/16 at 00:25; Status DC Lidocaine HCl (Xylocaine-Mpf 1% Vial) 2 ml 1X PRN PRN ID IV START; Start at 12:30; Stop 11/27/16 at 12:29 Hydromorphone HCl (Dilaudid) 0.5 mg PRN Q10MIN PRN IV SEV PAIN, Second choice Last administered on 11/26/16 16:57; Start 11/26/16 at 12:30; Stop 11/27/16 at 12:29 Prochlorperazine Edisylate (Compazine) 5 mg PACU PRN PRN IV NAUSEA, MRX1; Start 11/26/16 at 12:30; Stop 11/27/16 at 12:29 Propofol 20 ml @ As Directed STK-MED ONCE IV ; Start 11/26/16 at 12:59; Stop at 13:00; Status DC Dexamethasone Sodium Phosphate (Decadron) 20 mg STK-MED ONCE .ROUTE ; Start 11/26/16 at 12:59; Stop 11/26/16 at 13:00; Status DC Lidocaine HCl (Lidocaine Pf 2% Vial) 5 ml STK-MED ONCE .ROUTE ; Start 11/26/16 at 12:59; Stop 11/26/16 at 13:00; Status DC Ondansetron HCl (Zofran) 4 mg STK-MED ONCE .ROUTE ; Start 11/26/16 at 12:59; Stop 11/26/16 at 13:00; Status DC Fentanyl Citrate (Fentanyl 2ml Vial) 100 mcg STK-MED ONCE .ROUTE ; Start at 12:59; Stop 11/26/16 at 13:00; Status DC Sevoflurane (Ultane) 30 ml STK-MED ONCE IH ; Start 11/26/16 at 13:01; Stop 11/26 at 13:03; Status DC Bupivacaine HCl/ Epinephrine Bitart (Marcaine-Epi 0.5%-1:[id number]) 50 ml STK-MED ONCE .ROUTE ; Start 11/26/16 at 12:30; Stop 11/26/16 at 13:30; Status DC Phenylephrine HCl 1 mg STK-MED ONCE IV ; Start 11/26/16 at 14:16; Stop 11/26/16 at 14:17; Status DC Fentanyl Citrate (Fentanyl 2ml Vial) 100 mcg STK-MED ONCE .ROUTE ; Start at 14:58; Stop 11/26/16 at 14:59; Status DC Sevoflurane (Ultane) 60 ml STK-MED ONCE IH ; Start 11/26/16 at 15:16; Stop 11/26 at 15:17; Status DC Active Scripts Active Glipizide 10 Mg Tablet 1 Tab PO BID Metformin Hcl 1,000 Mg Tablet 1,000 Mg PO DAILYWBKFT Keflex (Cephalexin) 500 Mg Capsule 1 Cap PO TID Oxycodone-Acetaminophen 5-325 (Oxycodone Hcl/Acetaminophen) 1 Each Tablet 1-2 Tab PO PRN Q4HRS PRN Vitals/I & O Vital Sign - Last 24 Hours 11/26/16 11/26/16 11/26/16 11/26/16 11:14 12:04 12:17 13:29 Temp 98.2 98.2 98.1 99.4 98.2 98.2 98.1 99.4 Pulse 83 42 85 84 Resp 20 14 16 18 B/P (MAP) 117/67 (84) 137/67 (90) 118/67 (84) 115/63 Pulse Ox 97 99 95 94 O2 Delivery Room Air Room Air Room Air Room Air 11/26/16 11/26/16 11/26/16 11/26/16 15:53 16:08 16:23 16:26 Temp 97.6 97.6 Pulse 93 84 90 Resp 16 16 16 18 B/P (MAP) 125/72 126/71 130/74 Pulse Ox 99 95 96 O2 Delivery Simple Mask Room Air Nasal Cannula Room Air O2 Flow Rate 10 10 2 11/26/16 11/26/16 11/26/16 11/26/16 16:37 16:38 16:52 17:07 Pulse 79 85 90 Resp 16 16 16 18 B/P (MAP) 114/78 143/59 100/71 Pulse Ox 97 97 97 98 O2 Delivery Nasal Cannula Nasal Cannula Nasal Cannula Nasal Cannula O2 Flow Rate 2 2 2 11/26/16 11/26/16 11/26/16 11/26/16 17:22 19:15 19:45 20:03 Temp 99.2 98.0 97.9 99.2 98.0 97.9 Pulse 96 81 85 Resp 16 18 18 18 B/P (MAP) 136/77 109/62 (78) 114/66 (82) Pulse Ox 98 93 96 98 O2 Delivery Nasal Cannula Nasal Cannula Nasal Cannula Room Air O2 Flow Rate 2 2.0 2.0 2.0 11/26/16 11/26/16 11/26/16 11/26/16 20:15 20:45 21:45 22:45 Pulse 93 95 81 92 Resp 18 18 18 18 B/P (MAP) 101/76 (84) 119/71 (87) 124/62 (82) 108/85 (93) Pulse Ox 95 94 96 97 O2 Delivery Nasal Cannula Nasal Cannula Nasal Cannula Nasal Cannula O2 Flow Rate 2.0 2.0 2.0 2.0 11/26/16 11/27/16 11/27/16 11/27/16 23:00 03:10 07:00 07:45 Temp 98.3 97.5 98.3 98.3 97.5 98.3 Pulse 95 68 91 Resp 20 20 20 B/P (MAP) 137/53 (81) 109/58 (75) 117/70 (86) Pulse Ox 95 98 97 98 O2 Delivery Nasal Cannula Nasal Cannula Nasal Cannula Room Air O2 Flow Rate 2.0 2.0 2.0 2.0 11/27/16 11/27/16 11/27/16 08:00 08:15 09:10 Pulse Ox 98 O2 Delivery Room Air Room Air Room Air O2 Flow Rate 2.0 2.0 BUSHRA HOGAN III DO Nov 27, 2016 10:40
[2016-11-27 11:00] VITALS: BP 112/67
--- NOTE | 2016-11-27 14:48 | PDOC ---
SURGICAL PROGRESS NOTE Subjective less pain able to lay on his back Vital Signs Vital Signs Date Time Temp Pulse Resp B/P (MAP) Pulse Ox O2 Delivery O2 Flow Rate FiO2 11/27/16 11:00 97.5 82 18 112/67 (82) 98 Nasal Cannula 2.0 97.5 PATIENT HAS A CUMMINGS: Yes General: Alert, Oriented X3, Cooperative, No acute distress Skin: Other (wound vac in place) Labs Laboratory Tests Test 11/25/16 16:03 11/25/16 20:34 11/26/16 04:50 11/26/16 12:39 Glucose (Fingerstick) 140 mg/dL (70-99) 141 mg/dL (70-99) 151 mg/dL (70-99) White Blood Count 19.2 x10^3/uL (4.0-11.0) Red Blood Count 3.85 x10^6/uL (4.30-5.70) Hemoglobin 11.4 g/dL (13.0-17.5) Hematocrit 33.4 % (39.0-53.0) Mean Corpuscular Volume 87 fL (79-100) Mean Corpuscular Hemoglobin 30 pg (25-35) Mean Corpuscular Hemoglobin Concent 34 g/dL (31-37) Red Cell Distribution Width 14.0 % (11.5-14.5) Platelet Count 278 x10^3/uL (140-400) Neutrophils (%) (Auto) 76 % (31-73) Lymphocytes (%) (Auto) 14 % (24-48) Monocytes (%) (Auto) 9 % (0-9) Eosinophils (%) (Auto) 0 % (0-3) Basophils (%) (Auto) 1 % (0-3) Neutrophils # (Auto) 14.6 x10^3uL (1.8-7.7) Lymphocytes # (Auto) 2.7 x10^3/uL (1.0-4.8) Monocytes # (Auto) 1.7 x10^3/uL (0.0-1.1) Eosinophils # (Auto) 0.1 x10^3/uL (0.0-0.7) Basophils # (Auto) 0.1 x10^3/uL (0.0-0.2) Sodium Level 138 mmol/L (136-145) Potassium Level 3.6 mmol/L (3.5-5.1) Chloride Level 101 mmol/L (98-107) Carbon Dioxide Level 29 mmol/L (21-32) Anion Gap 8 (6-14) Blood Urea Nitrogen 7 mg/dL (8-26) Creatinine 0.7 mg/dL (0.7-1.3) Estimated GFR (Cockcroft-Gault) 122.0 Glucose Level 99 mg/dL (70-99) Calcium Level 8.6 mg/dL (8.5-10.1) Test 11/26/16 16:35 11/26/16 17:48 11/26/16 20:41 11/27/16 04:55 Glucose (Fingerstick) 140 mg/dL (70-99) 185 mg/dL (70-99) 300 mg/dL (70-99) White Blood Count 19.8 x10^3/uL (4.0-11.0) Red Blood Count 3.75 x10^6/uL (4.30-5.70) Hemoglobin 10.9 g/dL (13.0-17.5) Hematocrit 32.8 % (39.0-53.0) Mean Corpuscular Volume 88 fL (79-100) Mean Corpuscular Hemoglobin 29 pg (25-35) Mean Corpuscular Hemoglobin Concent 33 g/dL (31-37) Red Cell Distribution Width 13.8 % (11.5-14.5) Platelet Count 361 x10^3/uL (140-400) Neutrophils (%) (Auto) 86 % (31-73) Lymphocytes (%) (Auto) 9 % (24-48) Monocytes (%) (Auto) 5 % (0-9) Eosinophils (%) (Auto) 0 % (0-3) Basophils (%) (Auto) 0 % (0-3) Neutrophils # (Auto) 17.0 x10^3uL (1.8-7.7) Lymphocytes # (Auto) 1.7 x10^3/uL (1.0-4.8) Monocytes # (Auto) 1.0 x10^3/uL (0.0-1.1) Eosinophils # (Auto) 0.0 x10^3/uL (0.0-0.7) Basophils # (Auto) 0.0 x10^3/uL (0.0-0.2) Sodium Level 136 mmol/L (136-145) Potassium Level 4.3 mmol/L (3.5-5.1) Chloride Level 98 mmol/L (98-107) Carbon Dioxide Level 31 mmol/L (21-32) Anion Gap 7 (6-14) Blood Urea Nitrogen 10 mg/dL (8-26) Creatinine 0.7 mg/dL (0.7-1.3) Estimated GFR (Cockcroft-Gault) 122.0 Glucose Level 200 mg/dL (70-99) Calcium Level 8.3 mg/dL (8.5-10.1) Test 11/27/16 07:30 11/27/16 11:31 Glucose (Fingerstick) 196 mg/dL (70-99) 230 mg/dL (70-99) Laboratory Tests Test 11/26/16 16:35 11/26/16 17:48 11/26/16 20:41 11/27/16 04:55 Glucose (Fingerstick) 140 mg/dL (70-99) 185 mg/dL (70-99) 300 mg/dL (70-99) White Blood Count 19.8 x10^3/uL (4.0-11.0) Red Blood Count 3.75 x10^6/uL (4.30-5.70) Hemoglobin 10.9 g/dL (13.0-17.5) Hematocrit 32.8 % (39.0-53.0) Mean Corpuscular Volume 88 fL (79-100) Mean Corpuscular Hemoglobin 29 pg (25-35) Mean Corpuscular Hemoglobin Concent 33 g/dL (31-37) Red Cell Distribution Width 13.8 % (11.5-14.5) Platelet Count 361 x10^3/uL (140-400) Neutrophils (%) (Auto) 86 % (31-73) Lymphocytes (%) (Auto) 9 % (24-48) Monocytes (%) (Auto) 5 % (0-9) Eosinophils (%) (Auto) 0 % (0-3) Basophils (%) (Auto) 0 % (0-3) Neutrophils # (Auto) 17.0 x10^3uL (1.8-7.7) Lymphocytes # (Auto) 1.7 x10^3/uL (1.0-4.8) Monocytes # (Auto) 1.0 x10^3/uL (0.0-1.1) Eosinophils # (Auto) 0.0 x10^3/uL (0.0-0.7) Basophils # (Auto) 0.0 x10^3/uL (0.0-0.2) Sodium Level 136 mmol/L (136-145) Potassium Level 4.3 mmol/L (3.5-5.1) Chloride Level 98 mmol/L (98-107) Carbon Dioxide Level 31 mmol/L (21-32) Anion Gap 7 (6-14) Blood Urea Nitrogen 10 mg/dL (8-26) Creatinine 0.7 mg/dL (0.7-1.3) Estimated GFR (Cockcroft-Gault) 122.0 Glucose Level 200 mg/dL (70-99) Calcium Level 8.3 mg/dL (8.5-10.1) Test 11/27/16 07:30 11/27/16 11:31 Glucose (Fingerstick) 196 mg/dL (70-99) 230 mg/dL (70-99) Problem List Problems Medical Problems: (1) Cellulitis Status: Acute Assessment/Plan s/p excisional debridement continue wound care d/c indigo in Problems: KRISHNA HERNÁNDEZ MD Nov 27, 2016 14:48
[2016-11-27 15:00] VITALS: BP 110/61
[2016-11-27 19:10] VITALS: BP 113/77
[2016-11-27 23:05] VITALS: BP 97/56
[2016-11-28 03:05] VITALS: BP 127/55
[2016-11-28 04:35] LABS: BASO % 0 % (0-3); EOS % 1 % (0-3); HEMATOCRIT 30.4 % (39.0-53.0); HEMOGLOBIN 9.8 g/dL (13.0-17.5); LYMPH # 3.9 x10^3/uL (1.0-4.8); LYMPH % 27 % (24-48); MEAN CORPUSCULAR HEMOGLOBIN 29 pg (25-35); MEAN CORPUSCULAR HGB CONC 32 g/dL (31-37); MEAN CORPUSCULAR VOLUME 89 fL (79-100); MONO % 8 % (0-9); NEUT % 64 % (31-73); PLATELET COUNT 331 x10^3/uL (140-400); RED CELL DISTRIBUTION WIDTH 13.9 % (11.5-14.5); WHITE BLOOD COUNT 14.4 x10^3/uL (4.0-11.0)
[2016-11-28 05:01] LABS: CREATININE 0.8 mg/dL (0.7-1.3); GFR 104.5; POTASSIUM 4.2 mmol/L (3.5-5.1)
[2016-11-28 07:00] VITALS: BP 106/57
[2016-11-28] MEDS: PRILOSEC 20 MG PO SCH (07:31)
[2016-11-28] MEDS: POTASSIUM CHLORIDE 20 MEQ TABLET.ER. PO SCH (07:31)
[2016-11-28] MEDS: glipiZIDE 5 MG TABLET PO SCH ×2 (07:31→17:12)
[2016-11-28] MEDS: INSULIN ASPART 300 UNITS/3 ML INSULN.PEN SQ SCH ×3 (08:00→17:15)
[2016-11-28] MEDS: oxyCODONE/APAP 5/325 1 TAB TABLET PO PRN ×4 (09:41→23:53)
[2016-11-28 10:56] VITALS: BP 105/66
--- NOTE | 2016-11-28 11:40 | PDOC ---
PROGRESS NOTES Chief Complaint Chief Complaint 1. Cellulitis History of Present Illness History of Present Illness Patient reclining in bed when team arrived. Patient says he has minimal pain.Nurse present in room and said [employer] OPERATOR pump ran out. Encouraged patient to try po pain medication. Wound vac in place. Patient ok with dc, but asked that someone recheck PICC before dc so that antibiotics can be given through it at home. Vitals Vitals Vital Signs Date Time Temp Pulse Resp B/P (MAP) Pulse Ox O2 Delivery O2 Flow Rate FiO2 11/28/16 10:56 98.1 69 18 105/66 (79) 97 Nasal Cannula 2.0 98.1 Physical Exam Physical Exam Patient awake laying supine in bed. Patient cordial and conversant with appropriate, complete responses. Wound vac in place and functioning. General: Alert, Oriented X3, Cooperative, No acute distress Heart: Regular rate, No murmurs Lungs: Clear Abdomen: Normal bowel sounds, Soft Extremities: No clubbing, No cyanosis Skin: No rashes, No breakdown, Other (wound vac in place) Labs LABS Laboratory Tests Test 11/27/16 17:02 11/27/16 20:42 11/28/16 03:40 11/28/16 07:13 Glucose (Fingerstick) 205 mg/dL (70-99) 153 mg/dL (70-99) 124 mg/dL (70-99) White Blood Count 14.4 x10^3/uL (4.0-11.0) Red Blood Count 3.40 x10^6/uL (4.30-5.70) Hemoglobin 9.8 g/dL (13.0-17.5) Hematocrit 30.4 % (39.0-53.0) Mean Corpuscular Volume 89 fL (79-100) Mean Corpuscular Hemoglobin 29 pg (25-35) Mean Corpuscular Hemoglobin Concent 32 g/dL (31-37) Red Cell Distribution Width 13.9 % (11.5-14.5) Platelet Count 331 x10^3/uL (140-400) Neutrophils (%) (Auto) 64 % (31-73) Lymphocytes (%) (Auto) 27 % (24-48) Monocytes (%) (Auto) 8 % (0-9) Eosinophils (%) (Auto) 1 % (0-3) Basophils (%) (Auto) 0 % (0-3) Neutrophils # (Auto) 9.3 x10^3uL (1.8-7.7) Lymphocytes # (Auto) 3.9 x10^3/uL (1.0-4.8) Monocytes # (Auto) 1.2 x10^3/uL (0.0-1.1) Eosinophils # (Auto) 0.1 x10^3/uL (0.0-0.7) Basophils # (Auto) 0.0 x10^3/uL (0.0-0.2) Sodium Level 136 mmol/L (136-145) Potassium Level 4.2 mmol/L (3.5-5.1) Chloride Level 102 mmol/L (98-107) Carbon Dioxide Level 30 mmol/L (21-32) Anion Gap 4 (6-14) Blood Urea Nitrogen 11 mg/dL (8-26) Creatinine 0.8 mg/dL (0.7-1.3) Estimated GFR (Cockcroft-Gault) 104.5 Glucose Level 189 mg/dL (70-99) Calcium Level 8.0 mg/dL (8.5-10.1) Review of Systems Review of Systems Patient denies pain. Patient admits lethargy Patient admits hunger. Assessment and Plan Assessmemt and Plan Problems Medical Problems: (1) Cellulitis Status: Acute Assessment: 1. cellulitis Plan: 1. Order DC when ok w/ subspecialists 2. gave nurse patient prescription for percocet prn pain 3. Will surgeon give abx rx or should IM? 4. Have PICC team ensure functioning port 5. continue wound vac Problems: Comment Review of Relevant I have reviewed the following items laz (where applicable) has been applied. Labs Laboratory Tests Test 11/26/16 12:39 11/26/16 16:35 11/26/16 17:48 11/26/16 20:41 Glucose (Fingerstick) 151 mg/dL (70-99) 140 mg/dL (70-99) 185 mg/dL (70-99) 300 mg/dL (70-99) Test 11/27/16 04:55 11/27/16 07:30 11/27/16 11:31 11/27/16 17:02 White Blood Count 19.8 x10^3/uL (4.0-11.0) Red Blood Count 3.75 x10^6/uL (4.30-5.70) Hemoglobin 10.9 g/dL (13.0-17.5) Hematocrit 32.8 % (39.0-53.0) Mean Corpuscular Volume 88 fL (79-100) Mean Corpuscular Hemoglobin 29 pg (25-35) Mean Corpuscular Hemoglobin Concent 33 g/dL (31-37) Red Cell Distribution Width 13.8 % (11.5-14.5) Platelet Count 361 x10^3/uL (140-400) Neutrophils (%) (Auto) 86 % (31-73) Lymphocytes (%) (Auto) 9 % (24-48) Monocytes (%) (Auto) 5 % (0-9) Eosinophils (%) (Auto) 0 % (0-3) Basophils (%) (Auto) 0 % (0-3) Neutrophils # (Auto) 17.0 x10^3uL (1.8-7.7) Lymphocytes # (Auto) 1.7 x10^3/uL (1.0-4.8) Monocytes # (Auto) 1.0 x10^3/uL (0.0-1.1) Eosinophils # (Auto) 0.0 x10^3/uL (0.0-0.7) Basophils # (Auto) 0.0 x10^3/uL (0.0-0.2) Sodium Level 136 mmol/L (136-145) Potassium Level 4.3 mmol/L (3.5-5.1) Chloride Level 98 mmol/L (98-107) Carbon Dioxide Level 31 mmol/L (21-32) Anion Gap 7 (6-14) Blood Urea Nitrogen 10 mg/dL (8-26) Creatinine 0.7 mg/dL (0.7-1.3) Estimated GFR (Cockcroft-Gault) 122.0 Glucose Level 200 mg/dL (70-99) Calcium Level 8.3 mg/dL (8.5-10.1) Glucose (Fingerstick) 196 mg/dL (70-99) 230 mg/dL (70-99) 205 mg/dL (70-99) Test 11/27/16 20:42 11/28/16 03:40 11/28/16 07:13 Glucose (Fingerstick) 153 mg/dL (70-99) 124 mg/dL (70-99) White Blood Count 14.4 x10^3/uL (4.0-11.0) Red Blood Count 3.40 x10^6/uL (4.30-5.70) Hemoglobin 9.8 g/dL (13.0-17.5) Hematocrit 30.4 % (39.0-53.0) Mean Corpuscular Volume 89 fL (79-100) Mean Corpuscular Hemoglobin 29 pg (25-35) Mean Corpuscular Hemoglobin Concent 32 g/dL (31-37) Red Cell Distribution Width 13.9 % (11.5-14.5) Platelet Count 331 x10^3/uL (140-400) Neutrophils (%) (Auto) 64 % (31-73) Lymphocytes (%) (Auto) 27 % (24-48) Monocytes (%) (Auto) 8 % (0-9) Eosinophils (%) (Auto) 1 % (0-3) Basophils (%) (Auto) 0 % (0-3) Neutrophils # (Auto) 9.3 x10^3uL (1.8-7.7) Lymphocytes # (Auto) 3.9 x10^3/uL (1.0-4.8) Monocytes # (Auto) 1.2 x10^3/uL (0.0-1.1) Eosinophils # (Auto) 0.1 x10^3/uL (0.0-0.7) Basophils # (Auto) 0.0 x10^3/uL (0.0-0.2) Sodium Level 136 mmol/L (136-145) Potassium Level 4.2 mmol/L (3.5-5.1) Chloride Level 102 mmol/L (98-107) Carbon Dioxide Level 30 mmol/L (21-32) Anion Gap 4 (6-14) Blood Urea Nitrogen 11 mg/dL (8-26) Creatinine 0.8 mg/dL (0.7-1.3) Estimated GFR (Cockcroft-Gault) 104.5 Glucose Level 189 mg/dL (70-99) Calcium Level 8.0 mg/dL (8.5-10.1) Laboratory Tests Test 11/27/16 17:02 11/27/16 20:42 11/28/16 03:40 11/28/16 07:13 Glucose (Fingerstick) 205 mg/dL (70-99) 153 mg/dL (70-99) 124 mg/dL (70-99) White Blood Count 14.4 x10^3/uL (4.0-11.0) Red Blood Count 3.40 x10^6/uL (4.30-5.70) Hemoglobin 9.8 g/dL (13.0-17.5) Hematocrit 30.4 % (39.0-53.0) Mean Corpuscular Volume 89 fL (79-100) Mean Corpuscular Hemoglobin 29 pg (25-35) Mean Corpuscular Hemoglobin Concent 32 g/dL (31-37) Red Cell Distribution Width 13.9 % (11.5-14.5) Platelet Count 331 x10^3/uL (140-400) Neutrophils (%) (Auto) 64 % (31-73) Lymphocytes (%) (Auto) 27 % (24-48) Monocytes (%) (Auto) 8 % (0-9) Eosinophils (%) (Auto) 1 % (0-3) Basophils (%) (Auto) 0 % (0-3) Neutrophils # (Auto) 9.3 x10^3uL (1.8-7.7) Lymphocytes # (Auto) 3.9 x10^3/uL (1.0-4.8) Monocytes # (Auto) 1.2 x10^3/uL (0.0-1.1) Eosinophils # (Auto) 0.1 x10^3/uL (0.0-0.7) Basophils # (Auto) 0.0 x10^3/uL (0.0-0.2) Sodium Level 136 mmol/L (136-145) Potassium Level 4.2 mmol/L (3.5-5.1) Chloride Level 102 mmol/L (98-107) Carbon Dioxide Level 30 mmol/L (21-32) Anion Gap 4 (6-14) Blood Urea Nitrogen 11 mg/dL (8-26) Creatinine 0.8 mg/dL (0.7-1.3) Estimated GFR (Cockcroft-Gault) 104.5 Glucose Level 189 mg/dL (70-99) Calcium Level 8.0 mg/dL (8.5-10.1) Microbiology 11/23/16 Blood Culture - Preliminary, Resulted NO GROWTH AFTER 3 DAYS 11/26/16 Gram Stain - Final, Complete Medications Current Medications Sodium Chloride 1,000 ml @ 1,000 mls/hr Q1H IV Last administered on 11/23/16 18:54; Start 11/23/16 at 14:19; Stop 11/23/16 at 15:18; Status DC Vancomycin HCl (Vanco Per Pharmacy) 1 each PRN DAILY PRN MC SEE COMMENTS; Start 11/23/16 at 15:00; Stop 11/23/16 at 17:58; Status DC Vancomycin HCl 2 gm/Sodium Chloride 500 ml @ 250 mls/hr 1X ONCE IV Last administered on 11/23/16 15:40; Start 11/23/16 at 15:00; Stop 11/23/16 at 16:59 ; Status DC Ondansetron HCl (Zofran) 4 mg PRN Q8HRS PRN IV NAUSEA/VOMITING; Start 11/23/16 at 16:00; Stop 11/23/16 at 16:55; Status DC Morphine Sulfate 2 mg PRN Q2HR PRN IV PAIN Last administered on 11/23/16 20:18 ; Start 11/23/16 at 16:00; Stop 11/24/16 at 15:59; Status DC Ondansetron HCl (Zofran) 4 mg PRN Q6HRS PRN IV NAUSEA/VOMITING Last administered on 11/23/16 17:09; Start 11/23/16 at 17:00; Stop 11/24/16 at 16:59 ; Status DC Insulin Aspart (NovoLOG) 0-9 UNITS TIDWMEALS SQ Last administered on 11/27/16 17:12; Start 11/23/16 at 17:00 Dextrose (Dextrose 50%-Water Syringe) 12.5 gm PRN Q15MIN PRN IV SEE COMMENTS; Start 11/23/16 at 17:00 Metformin HCl (Glucophage) 1,000 mg DAILYWBKFT PO Last administered on 08:45; Start 11/24/16 at 08:00; Stop 11/25/16 at 15:10; Status DC Oxycodone/ Acetaminophen (Percocet 5/325) 1 tab PRN Q4HRS PRN PO PAIN Last administered on 11/28/16 09:41; Start 11/23/16 at 17:00 Glipizide (Glucotrol) 10 mg BIDBFRMEAL PO Last administered on 11/28/16 07:31 ; Start 11/24/16 at 07:30 Potassium Chloride (Klor-Con) 40 meq 1X ONCE PO Last administered on 18:56; Start 11/23/16 at 18:00; Stop 11/23/16 at 18:01; Status DC Linezolid 300 ml @ 300 mls/hr Q12HR IV Last administered on 11/28/16 09:42; Start 11/23/16 at 19:00 Potassium Chloride (Klor-Con) 40 meq 1X ONCE PO ; Start 11/24/16 at 06:00; Stop 11/24/16 at 06:01; Status Cancel Potassium Chloride (Klor-Con) 40 meq DAILYWBKFT PO Last administered on 07:31; Start 11/25/16 at 08:00 Potassium Chloride (Klor-Con) 40 meq 1X ONCE PO Last administered on 06:32; Start 11/24/16 at 06:30; Stop 11/24/16 at 06:31; Status DC Potassium Chloride (Klor-Con) 40 meq 1X ONCE PO Last administered on 11:38; Start 11/24/16 at 10:30; Stop 11/24/16 at 10:31; Status DC Potassium Chloride (Klor-Con) 40 meq 1X ONCE PO Last administered on 14:59; Start 11/24/16 at 13:30; Stop 11/24/16 at 13:31; Status DC Hydromorphone HCl 30 ml @ 0 mls/hr CONT PRN PRN IV PROTOCOL Last administered on 11/27/16 21:37; Start 11/24/16 at 14:00 Acetaminophen (Tylenol) 650 mg PRN Q6HRS PRN PO MILD PAIN / TEMP Last administered on 11/24/16 23:32; Start 11/24/16 at 23:15 Non-Formulary Medication 1 ea DAILY08 PO Last administered on 11/28/16 07:31; Start 11/26/16 at 08:00 Iohexol (Omnipaque 300 Mg/ml) 75 ml 1X ONCE IV Last administered on 11/25/16 17:44; Start 11/25/16 at 15:15; Stop 11/25/16 at 15:16; Status DC Info (Do NOT chart on this entry -- for MONITORING) 1 each PRN DAILY PRN MC SEE COMMENTS; Start 11/25/16 at 15:15; Stop 11/27/16 at 15:14; Status DC Metformin HCl (Glucophage) 1,000 mg DAILYWBKFT PO Last administered on 07:31; Start 11/28/16 at 08:00 Ondansetron HCl (Zofran) 4 mg PRN Q6HRS PRN IV NAUSEA/VOMITING; Start 11/26/16 at 12:30; Stop 11/27/16 at 12:29; Status DC Fentanyl Citrate (Fentanyl 2ml Vial) 25 mcg PRN Q5MIN PRN IV MILD PAIN; Start 11/26/16 at 12:30; Stop 11/27/16 at 12:29; Status DC Fentanyl Citrate (Fentanyl 2ml Vial) 50 mcg PRN Q5MIN PRN IV MODERATE PAIN; Start 11/26/16 at 12:30; Stop 11/27/16 at 12:29; Status DC Morphine Sulfate 1 mg PRN Q10MIN PRN IV SEVERE PAIN; Start 11/26/16 at 12:30; Stop 11/27/16 at 12:29; Status DC Ringer's Solution 1,000 ml @ 30 mls/hr Q24H IV ; Start 11/26/16 at 12:26; Stop 11/27/16 at 00:25; Status DC Lidocaine HCl (Xylocaine-Mpf 1% Vial) 2 ml 1X PRN PRN ID IV START; Start at 12:30; Stop 11/27/16 at 12:29; Status DC Hydromorphone HCl (Dilaudid) 0.5 mg PRN Q10MIN PRN IV SEV PAIN, Second choice Last administered on 11/26/16 16:57; Start 11/26/16 at 12:30; Stop 11/27/16 at 12:29; Status DC Prochlorperazine Edisylate (Compazine) 5 mg PACU PRN PRN IV NAUSEA, MRX1; Start 11/26/16 at 12:30; Stop 11/27/16 at 12:29; Status DC Propofol 20 ml @ As Directed STK-MED ONCE IV ; Start 11/26/16 at 12:59; Stop at 13:00; Status DC Dexamethasone Sodium Phosphate (Decadron) 20 mg STK-MED ONCE .ROUTE ; Start 11/26/16 at 12:59; Stop 11/26/16 at 13:00; Status DC Lidocaine HCl (Lidocaine Pf 2% Vial) 5 ml STK-MED ONCE .ROUTE ; Start 11/26/16 at 12:59; Stop 11/26/16 at 13:00; Status DC Ondansetron HCl (Zofran) 4 mg STK-MED ONCE .ROUTE ; Start 11/26/16 at 12:59; Stop 11/26/16 at 13:00; Status DC Fentanyl Citrate (Fentanyl 2ml Vial) 100 mcg STK-MED ONCE .ROUTE ; Start at 12:59; Stop 11/26/16 at 13:00; Status DC Sevoflurane (Ultane) 30 ml STK-MED ONCE IH ; Start 11/26/16 at 13:01; Stop 11/26 at 13:03; Status DC Bupivacaine HCl/ Epinephrine Bitart (Marcaine-Epi 0.5%-1:[id number]) 50 ml STK-MED ONCE .ROUTE ; Start 11/26/16 at 12:30; Stop 11/26/16 at 13:30; Status DC Phenylephrine HCl 1 mg STK-MED ONCE IV ; Start 11/26/16 at 14:16; Stop 11/26/16 at 14:17; Status DC Fentanyl Citrate (Fentanyl 2ml Vial) 100 mcg STK-MED ONCE .ROUTE ; Start at 14:58; Stop 11/26/16 at 14:59; Status DC Sevoflurane (Ultane) 60 ml STK-MED ONCE IH ; Start 11/26/16 at 15:16; Stop 11/26 at 15:17; Status DC Active Scripts Active Glipizide 10 Mg Tablet 1 Tab PO BID Metformin Hcl 1,000 Mg Tablet 1,000 Mg PO DAILYWBKFT Keflex (Cephalexin) 500 Mg Capsule 1 Cap PO TID Oxycodone-Acetaminophen 5-325 (Oxycodone Hcl/Acetaminophen) 1 Each Tablet 1-2 Tab PO PRN Q4HRS PRN Vitals/I & O Vital Sign - Last 24 Hours 11/27/16 11/27/16 11/27/16 11/27/16 15:00 19:10 21:37 22:07 Temp 97.8 97.9 97.8 97.9 Pulse 84 88 Resp 18 20 B/P (MAP) 110/61 (77) 113/77 (89) Pulse Ox 98 99 99 99 O2 Delivery Nasal Cannula Nasal Cannula Room Air Room Air O2 Flow Rate 2.0 2.0 2.0 2.0 11/27/16 11/28/16 11/28/16 11/28/16 23:05 03:05 07:00 08:00 Temp 98.7 97.2 98.2 98.7 97.2 98.2 Pulse 78 68 71 Resp 19 20 18 B/P (MAP) 97/56 (70) 127/55 (79) 106/57 (73) Pulse Ox 98 100 98 O2 Delivery Nasal Cannula Nasal Cannula Nasal Cannula Room Air O2 Flow Rate 2.0 2.0 2.0 2.0 11/28/16 11/28/16 09:41 10:56 Temp 98.1 98.1 Pulse 69 Resp 18 B/P (MAP) 105/66 (79) Pulse Ox 98 97 O2 Delivery Room Air Nasal Cannula O2 Flow Rate 2.0 2.0 BUSHRA HOGAN III DO Nov 28, 2016 11:40
--- NOTE | 2016-11-28 13:32 | PDOC ---
SURGICAL PROGRESS NOTE Subjective pt sleeping soundly I did not wake him Vital Signs Vital Signs Date Time Temp Pulse Resp B/P (MAP) Pulse Ox O2 Delivery O2 Flow Rate FiO2 11/28/16 10:56 98.1 69 18 105/66 (79) 97 Nasal Cannula 2.0 98.1 PATIENT HAS A CUMMINGS: No Skin: Other (wound vac in place) Labs Laboratory Tests Test 11/26/16 16:35 11/26/16 17:48 11/26/16 20:41 11/27/16 04:55 Glucose (Fingerstick) 140 mg/dL (70-99) 185 mg/dL (70-99) 300 mg/dL (70-99) White Blood Count 19.8 x10^3/uL (4.0-11.0) Red Blood Count 3.75 x10^6/uL (4.30-5.70) Hemoglobin 10.9 g/dL (13.0-17.5) Hematocrit 32.8 % (39.0-53.0) Mean Corpuscular Volume 88 fL (79-100) Mean Corpuscular Hemoglobin 29 pg (25-35) Mean Corpuscular Hemoglobin Concent 33 g/dL (31-37) Red Cell Distribution Width 13.8 % (11.5-14.5) Platelet Count 361 x10^3/uL (140-400) Neutrophils (%) (Auto) 86 % (31-73) Lymphocytes (%) (Auto) 9 % (24-48) Monocytes (%) (Auto) 5 % (0-9) Eosinophils (%) (Auto) 0 % (0-3) Basophils (%) (Auto) 0 % (0-3) Neutrophils # (Auto) 17.0 x10^3uL (1.8-7.7) Lymphocytes # (Auto) 1.7 x10^3/uL (1.0-4.8) Monocytes # (Auto) 1.0 x10^3/uL (0.0-1.1) Eosinophils # (Auto) 0.0 x10^3/uL (0.0-0.7) Basophils # (Auto) 0.0 x10^3/uL (0.0-0.2) Sodium Level 136 mmol/L (136-145) Potassium Level 4.3 mmol/L (3.5-5.1) Chloride Level 98 mmol/L (98-107) Carbon Dioxide Level 31 mmol/L (21-32) Anion Gap 7 (6-14) Blood Urea Nitrogen 10 mg/dL (8-26) Creatinine 0.7 mg/dL (0.7-1.3) Estimated GFR (Cockcroft-Gault) 122.0 Glucose Level 200 mg/dL (70-99) Calcium Level 8.3 mg/dL (8.5-10.1) Test 11/27/16 07:30 11/27/16 11:31 11/27/16 17:02 11/27/16 20:42 Glucose (Fingerstick) 196 mg/dL (70-99) 230 mg/dL (70-99) 205 mg/dL (70-99) 153 mg/dL (70-99) Test 11/28/16 03:40 11/28/16 07:13 11/28/16 11:36 White Blood Count 14.4 x10^3/uL (4.0-11.0) Red Blood Count 3.40 x10^6/uL (4.30-5.70) Hemoglobin 9.8 g/dL (13.0-17.5) Hematocrit 30.4 % (39.0-53.0) Mean Corpuscular Volume 89 fL (79-100) Mean Corpuscular Hemoglobin 29 pg (25-35) Mean Corpuscular Hemoglobin Concent 32 g/dL (31-37) Red Cell Distribution Width 13.9 % (11.5-14.5) Platelet Count 331 x10^3/uL (140-400) Neutrophils (%) (Auto) 64 % (31-73) Lymphocytes (%) (Auto) 27 % (24-48) Monocytes (%) (Auto) 8 % (0-9) Eosinophils (%) (Auto) 1 % (0-3) Basophils (%) (Auto) 0 % (0-3) Neutrophils # (Auto) 9.3 x10^3uL (1.8-7.7) Lymphocytes # (Auto) 3.9 x10^3/uL (1.0-4.8) Monocytes # (Auto) 1.2 x10^3/uL (0.0-1.1) Eosinophils # (Auto) 0.1 x10^3/uL (0.0-0.7) Basophils # (Auto) 0.0 x10^3/uL (0.0-0.2) Sodium Level 136 mmol/L (136-145) Potassium Level 4.2 mmol/L (3.5-5.1) Chloride Level 102 mmol/L (98-107) Carbon Dioxide Level 30 mmol/L (21-32) Anion Gap 4 (6-14) Blood Urea Nitrogen 11 mg/dL (8-26) Creatinine 0.8 mg/dL (0.7-1.3) Estimated GFR (Cockcroft-Gault) 104.5 Glucose Level 189 mg/dL (70-99) Calcium Level 8.0 mg/dL (8.5-10.1) Glucose (Fingerstick) 124 mg/dL (70-99) 188 mg/dL (70-99) Laboratory Tests Test 11/27/16 17:02 11/27/16 20:42 11/28/16 03:40 11/28/16 07:13 Glucose (Fingerstick) 205 mg/dL (70-99) 153 mg/dL (70-99) 124 mg/dL (70-99) White Blood Count 14.4 x10^3/uL (4.0-11.0) Red Blood Count 3.40 x10^6/uL (4.30-5.70) Hemoglobin 9.8 g/dL (13.0-17.5) Hematocrit 30.4 % (39.0-53.0) Mean Corpuscular Volume 89 fL (79-100) Mean Corpuscular Hemoglobin 29 pg (25-35) Mean Corpuscular Hemoglobin Concent 32 g/dL (31-37) Red Cell Distribution Width 13.9 % (11.5-14.5) Platelet Count 331 x10^3/uL (140-400) Neutrophils (%) (Auto) 64 % (31-73) Lymphocytes (%) (Auto) 27 % (24-48) Monocytes (%) (Auto) 8 % (0-9) Eosinophils (%) (Auto) 1 % (0-3) Basophils (%) (Auto) 0 % (0-3) Neutrophils # (Auto) 9.3 x10^3uL (1.8-7.7) Lymphocytes # (Auto) 3.9 x10^3/uL (1.0-4.8) Monocytes # (Auto) 1.2 x10^3/uL (0.0-1.1) Eosinophils # (Auto) 0.1 x10^3/uL (0.0-0.7) Basophils # (Auto) 0.0 x10^3/uL (0.0-0.2) Sodium Level 136 mmol/L (136-145) Potassium Level 4.2 mmol/L (3.5-5.1) Chloride Level 102 mmol/L (98-107) Carbon Dioxide Level 30 mmol/L (21-32) Anion Gap 4 (6-14) Blood Urea Nitrogen 11 mg/dL (8-26) Creatinine 0.8 mg/dL (0.7-1.3) Estimated GFR (Cockcroft-Gault) 104.5 Glucose Level 189 mg/dL (70-99) Calcium Level 8.0 mg/dL (8.5-10.1) Test 11/28/16 11:36 Glucose (Fingerstick) 188 mg/dL (70-99) Problem List Problems Medical Problems: (1) Cellulitis Status: Acute Assessment/Plan POD 2 excisional debridement right gluteal abscess continue wound care Problems: KRISHNA HERNÁNDEZ MD Nov 28, 2016 13:31
[2016-11-28] MEDS ORDERED: LIDOCAINE 1% / SOD BICARB 8.4% 20 ML VIAL. IJ ONE ×2 (13:49→14:30)
--- NOTE | 2016-11-28 14:54 | PDOC1 ---
IR Pre-Procedure H&P H&P Update The right arm PICC is at midline, requiring more central PICC before discharge on antibiotics. Otherwise no significant change from Dr. Bela lira H&P done 11/23/16. RAYMUNDO GUTHRIE MD Nov 28, 2016 14:54
--- NOTE | 2016-11-28 15:00 | OP ---
DATE OF SURGERY: 11/26/2016 PREOPERATIVE DIAGNOSIS: Recurrent gluteal abscess. POSTOPERATIVE DIAGNOSIS: Recurrent gluteal abscess. PROCEDURE: Excisional debridement of skin, fat and muscle, right buttocks with placement of wound VAC. SURGEON: Jamel Hernández MD. VOCATIONAL INSTRUCTOR: Cathy Morse and Emily Lugo. ANESTHESIA: General. ESTIMATED BLOOD LOSS: 250 mL. INTRAVENOUS FLUID: 850 mL. INDICATIONS: The patient is a 46-year-old obese, poorly controlled diabetic, status post I and D of gluteal abscess 6 days ago. He returned with increased drainage and pain and is here for further debridement. DESCRIPTION OF PROCEDURE: The patient brought to the operating suite, given a general anesthetic and placed in the dorsal lithotomy position. The previously placed [place] drain was removed and the opening is explored digitally to reveal a pocket of infection that was then unroofed and debrided with LigaSure and cautery removing skin, subcutaneous fat, and some necrotic muscle. The wound was irrigated with 4 liters of saline using the pulse software quality engineer. Hemostasis obtained with 3-0 Vicryl stick ties and cautery. The wound was assessed for the extent and was found to be 13 cm in length, 3 cm in width and 15 cm deep. When hemostasis was present and a second sponge count was correct, the operative field to the wound care nurses for placement of the wound VAC. Subsequent to that, the patient was awakened from his anesthetic and taken to the recovery room in satisfactory condition. JAMEL HERNÁNDEZ MD DR: JOE/johanna JOB#: [id number] / [id number]
--- NOTE | 2016-11-28 15:01 | RAD ---
Procedure: Fluoroscopic guided PICC replacement. The procedure risk and complications to include bleeding, infection and arrhythmia, were discussed at length with the patient, and they understood and wished to proceed. All questions were answered. Consent form signed. The right upper extremity was prepped and draped using maximal sterile technique and 1% Xylocaine was used for local anesthesia. A 0.018 wire was advanced through the existing PICC and positioned midline in the SVC. The existing PICC was removed. The 5-Uzbek dual lumen PICC line catheter was measured under fluoroscopic guidance and cut to 39 cm. The PICC line was placed with the tip in the right atrium. Chest x-ray: PICC line is in a satisfactory location. Complication: None Fluoroscopy time 1.5 mins DAP: 7 uGycm2 Contrast: None Sedation: None The patient tolerated the procedure well and returned to the for in a stable condition. Conclusion: Successful right arm dual lumen 39 cm long PICC replacement with fluoroscopic guidance.
[2016-11-28 19:50] VITALS: BP 123/73
[2016-11-28 23:44] VITALS: BP 133/73
[2016-11-29] VITALS (7 sets, daily range): BP systolic 108–156; BP diastolic 56–82
[2016-11-29 04:09] LABS: BASO # 0.1 x10^3/uL (0.0-0.2); BASO % 0 % (0-3); EOS % 0 % (0-3); HEMATOCRIT 31.7 % (39.0-53.0); HEMOGLOBIN 10.4 g/dL (13.0-17.5); LYMPH # 3.2 x10^3/uL (1.0-4.8); LYMPH % 21 % (24-48); MEAN CORPUSCULAR HEMOGLOBIN 29 pg (25-35); MEAN CORPUSCULAR HGB CONC 33 g/dL (31-37); MEAN CORPUSCULAR VOLUME 88 fL (79-100); MONO % 9 % (0-9); NEUT % 70 % (31-73); PLATELET COUNT 376 x10^3/uL (140-400); RED BLOOD COUNT 3.59 x10^6/uL (4.30-5.70); RED CELL DISTRIBUTION WIDTH 13.7 % (11.5-14.5); WHITE BLOOD COUNT 15.5 x10^3/uL (4.0-11.0)
[2016-11-29 04:31] LABS: CALCIUM 8.5 mg/dL (8.5-10.1); CREATININE 0.8 mg/dL (0.7-1.3); GFR 104.5
[2016-11-29] MEDS: POTASSIUM CHLORIDE 20 MEQ TABLET.ER. PO SCH (07:25)
[2016-11-29] MEDS: oxyCODONE/APAP 5/325 1 TAB TABLET PO PRN ×4 (07:25→22:47)
[2016-11-29] MEDS: PRILOSEC 20 MG PO SCH (07:26)
[2016-11-29] MEDS: glipiZIDE 5 MG TABLET PO SCH ×2 (07:26→17:21)
[2016-11-29] MEDS: INSULIN ASPART 300 UNITS/3 ML INSULN.PEN SQ SCH ×3 (08:00→17:00)
--- NOTE | 2016-11-29 09:00 | PDOC ---
MORGAN QUINTANA [employer] 11/29/16 0900: SURGICAL PROGRESS NOTE Subjective pt sleeping wound vac in place working on dc Vital Signs Vital Signs Date Time Temp Pulse Resp B/P (MAP) Pulse Ox O2 Delivery O2 Flow Rate FiO2 11/29/16 08:25 93 Room Air 2.0 11/29/16 07:33 97.9 84 20 120/68 (85) 97.9 Labs Laboratory Tests Test 11/27/16 11:31 11/27/16 17:02 11/27/16 20:42 11/28/16 03:40 Glucose (Fingerstick) 230 mg/dL (70-99) 205 mg/dL (70-99) 153 mg/dL (70-99) White Blood Count 14.4 x10^3/uL (4.0-11.0) Red Blood Count 3.40 x10^6/uL (4.30-5.70) Hemoglobin 9.8 g/dL (13.0-17.5) Hematocrit 30.4 % (39.0-53.0) Mean Corpuscular Volume 89 fL (79-100) Mean Corpuscular Hemoglobin 29 pg (25-35) Mean Corpuscular Hemoglobin Concent 32 g/dL (31-37) Red Cell Distribution Width 13.9 % (11.5-14.5) Platelet Count 331 x10^3/uL (140-400) Neutrophils (%) (Auto) 64 % (31-73) Lymphocytes (%) (Auto) 27 % (24-48) Monocytes (%) (Auto) 8 % (0-9) Eosinophils (%) (Auto) 1 % (0-3) Basophils (%) (Auto) 0 % (0-3) Neutrophils # (Auto) 9.3 x10^3uL (1.8-7.7) Lymphocytes # (Auto) 3.9 x10^3/uL (1.0-4.8) Monocytes # (Auto) 1.2 x10^3/uL (0.0-1.1) Eosinophils # (Auto) 0.1 x10^3/uL (0.0-0.7) Basophils # (Auto) 0.0 x10^3/uL (0.0-0.2) Sodium Level 136 mmol/L (136-145) Potassium Level 4.2 mmol/L (3.5-5.1) Chloride Level 102 mmol/L (98-107) Carbon Dioxide Level 30 mmol/L (21-32) Anion Gap 4 (6-14) Blood Urea Nitrogen 11 mg/dL (8-26) Creatinine 0.8 mg/dL (0.7-1.3) Estimated GFR (Cockcroft-Gault) 104.5 Glucose Level 189 mg/dL (70-99) Calcium Level 8.0 mg/dL (8.5-10.1) Test 11/28/16 07:13 11/28/16 11:36 11/28/16 21:26 11/29/16 03:30 Glucose (Fingerstick) 124 mg/dL (70-99) 188 mg/dL (70-99) 136 mg/dL (70-99) White Blood Count 15.5 x10^3/uL (4.0-11.0) Red Blood Count 3.59 x10^6/uL (4.30-5.70) Hemoglobin 10.4 g/dL (13.0-17.5) Hematocrit 31.7 % (39.0-53.0) Mean Corpuscular Volume 88 fL (79-100) Mean Corpuscular Hemoglobin 29 pg (25-35) Mean Corpuscular Hemoglobin Concent 33 g/dL (31-37) Red Cell Distribution Width 13.7 % (11.5-14.5) Platelet Count 376 x10^3/uL (140-400) Neutrophils (%) (Auto) 70 % (31-73) Lymphocytes (%) (Auto) 21 % (24-48) Monocytes (%) (Auto) 9 % (0-9) Eosinophils (%) (Auto) 0 % (0-3) Basophils (%) (Auto) 0 % (0-3) Neutrophils # (Auto) 10.8 x10^3uL (1.8-7.7) Lymphocytes # (Auto) 3.2 x10^3/uL (1.0-4.8) Monocytes # (Auto) 1.3 x10^3/uL (0.0-1.1) Eosinophils # (Auto) 0.0 x10^3/uL (0.0-0.7) Basophils # (Auto) 0.1 x10^3/uL (0.0-0.2) Sodium Level 138 mmol/L (136-145) Potassium Level 4.0 mmol/L (3.5-5.1) Chloride Level 102 mmol/L (98-107) Carbon Dioxide Level 27 mmol/L (21-32) Anion Gap 9 (6-14) Blood Urea Nitrogen 9 mg/dL (8-26) Creatinine 0.8 mg/dL (0.7-1.3) Estimated GFR (Cockcroft-Gault) 104.5 Glucose Level 145 mg/dL (70-99) Calcium Level 8.5 mg/dL (8.5-10.1) Test 11/29/16 07:37 Glucose (Fingerstick) 121 mg/dL (70-99) Laboratory Tests Test 11/28/16 11:36 11/28/16 21:26 11/29/16 03:30 11/29/16 07:37 Glucose (Fingerstick) 188 mg/dL (70-99) 136 mg/dL (70-99) 121 mg/dL (70-99) White Blood Count 15.5 x10^3/uL (4.0-11.0) Red Blood Count 3.59 x10^6/uL (4.30-5.70) Hemoglobin 10.4 g/dL (13.0-17.5) Hematocrit 31.7 % (39.0-53.0) Mean Corpuscular Volume 88 fL (79-100) Mean Corpuscular Hemoglobin 29 pg (25-35) Mean Corpuscular Hemoglobin Concent 33 g/dL (31-37) Red Cell Distribution Width 13.7 % (11.5-14.5) Platelet Count 376 x10^3/uL (140-400) Neutrophils (%) (Auto) 70 % (31-73) Lymphocytes (%) (Auto) 21 % (24-48) Monocytes (%) (Auto) 9 % (0-9) Eosinophils (%) (Auto) 0 % (0-3) Basophils (%) (Auto) 0 % (0-3) Neutrophils # (Auto) 10.8 x10^3uL (1.8-7.7) Lymphocytes # (Auto) 3.2 x10^3/uL (1.0-4.8) Monocytes # (Auto) 1.3 x10^3/uL (0.0-1.1) Eosinophils # (Auto) 0.0 x10^3/uL (0.0-0.7) Basophils # (Auto) 0.1 x10^3/uL (0.0-0.2) Sodium Level 138 mmol/L (136-145) Potassium Level 4.0 mmol/L (3.5-5.1) Chloride Level 102 mmol/L (98-107) Carbon Dioxide Level 27 mmol/L (21-32) Anion Gap 9 (6-14) Blood Urea Nitrogen 9 mg/dL (8-26) Creatinine 0.8 mg/dL (0.7-1.3) Estimated GFR (Cockcroft-Gault) 104.5 Glucose Level 145 mg/dL (70-99) Calcium Level 8.5 mg/dL (8.5-10.1) Problem List Problems Medical Problems: (1) Cellulitis Status: Acute Problems: KRISHNA HERNÁNDEZ MD 11/29/16 1118: SURGICAL PROGRESS NOTE Assessment/Plan pt seen and examined agree with above home today if able to coordinate wound vac follow up Problems: MORGAN QUINTNAA [employer]ISTERED [employer] Nov 29, 2016 09:00 KRISHNA HERNÁNDEZ MD Nov 29, 2016 11:18
--- NOTE | 2016-11-29 11:31 | PDOC ---
PROGRESS NOTES Chief Complaint Chief Complaint 1. Cellulitis History of Present Illness History of Present Illness Patient reclining in bed when team arrived. Wound vac in place. PICC line causing no problems. Patient confirmed he was ok with percocet po for pain Vitals Vitals Vital Signs Date Time Temp Pulse Resp B/P (MAP) Pulse Ox O2 Delivery O2 Flow Rate FiO2 11/29/16 08:25 93 Room Air 2.0 11/29/16 07:33 97.9 84 20 120/68 (85) 97.9 Physical Exam Physical Exam Patient awake laying supine in bed. Patient cordial and conversant with appropriate, complete responses. Wound vac in place and functioning. General: Alert, Oriented X3, Cooperative, No acute distress Heart: Regular rate, No murmurs, Other (heart sounds distant) Lungs: Clear Abdomen: Normal bowel sounds, Soft Extremities: No clubbing, No cyanosis Skin: Other (wound vac in place) Labs LABS Laboratory Tests Test 11/28/16 11:36 11/28/16 21:26 11/29/16 03:30 11/29/16 07:37 Glucose (Fingerstick) 188 mg/dL (70-99) 136 mg/dL (70-99) 121 mg/dL (70-99) White Blood Count 15.5 x10^3/uL (4.0-11.0) Red Blood Count 3.59 x10^6/uL (4.30-5.70) Hemoglobin 10.4 g/dL (13.0-17.5) Hematocrit 31.7 % (39.0-53.0) Mean Corpuscular Volume 88 fL (79-100) Mean Corpuscular Hemoglobin 29 pg (25-35) Mean Corpuscular Hemoglobin Concent 33 g/dL (31-37) Red Cell Distribution Width 13.7 % (11.5-14.5) Platelet Count 376 x10^3/uL (140-400) Neutrophils (%) (Auto) 70 % (31-73) Lymphocytes (%) (Auto) 21 % (24-48) Monocytes (%) (Auto) 9 % (0-9) Eosinophils (%) (Auto) 0 % (0-3) Basophils (%) (Auto) 0 % (0-3) Neutrophils # (Auto) 10.8 x10^3uL (1.8-7.7) Lymphocytes # (Auto) 3.2 x10^3/uL (1.0-4.8) Monocytes # (Auto) 1.3 x10^3/uL (0.0-1.1) Eosinophils # (Auto) 0.0 x10^3/uL (0.0-0.7) Basophils # (Auto) 0.1 x10^3/uL (0.0-0.2) Sodium Level 138 mmol/L (136-145) Potassium Level 4.0 mmol/L (3.5-5.1) Chloride Level 102 mmol/L (98-107) Carbon Dioxide Level 27 mmol/L (21-32) Anion Gap 9 (6-14) Blood Urea Nitrogen 9 mg/dL (8-26) Creatinine 0.8 mg/dL (0.7-1.3) Estimated GFR (Cockcroft-Gault) 104.5 Glucose Level 145 mg/dL (70-99) Calcium Level 8.5 mg/dL (8.5-10.1) Review of Systems Review of Systems Patient feels tired. Patient feels hungry. Assessment and Plan Assessmemt and Plan Problems Medical Problems: (1) Cellulitis Status: Acute Assessment: 1. Cellulitis Plan: 1. wound care discussing wound vac for patient 2. DC patient to home today (11/29/16) 3. gave prescription for po pain meds to nurse 11/28/16 4. ok with plan of IV abx through PICC 5. continue diet as tolerated Problems: Comment Review of Relevant I have reviewed the following items laz (where applicable) has been applied. Labs Laboratory Tests Test 11/27/16 11:31 11/27/16 17:02 11/27/16 20:42 11/28/16 03:40 Glucose (Fingerstick) 230 mg/dL (70-99) 205 mg/dL (70-99) 153 mg/dL (70-99) White Blood Count 14.4 x10^3/uL (4.0-11.0) Red Blood Count 3.40 x10^6/uL (4.30-5.70) Hemoglobin 9.8 g/dL (13.0-17.5) Hematocrit 30.4 % (39.0-53.0) Mean Corpuscular Volume 89 fL (79-100) Mean Corpuscular Hemoglobin 29 pg (25-35) Mean Corpuscular Hemoglobin Concent 32 g/dL (31-37) Red Cell Distribution Width 13.9 % (11.5-14.5) Platelet Count 331 x10^3/uL (140-400) Neutrophils (%) (Auto) 64 % (31-73) Lymphocytes (%) (Auto) 27 % (24-48) Monocytes (%) (Auto) 8 % (0-9) Eosinophils (%) (Auto) 1 % (0-3) Basophils (%) (Auto) 0 % (0-3) Neutrophils # (Auto) 9.3 x10^3uL (1.8-7.7) Lymphocytes # (Auto) 3.9 x10^3/uL (1.0-4.8) Monocytes # (Auto) 1.2 x10^3/uL (0.0-1.1) Eosinophils # (Auto) 0.1 x10^3/uL (0.0-0.7) Basophils # (Auto) 0.0 x10^3/uL (0.0-0.2) Sodium Level 136 mmol/L (136-145) Potassium Level 4.2 mmol/L (3.5-5.1) Chloride Level 102 mmol/L (98-107) Carbon Dioxide Level 30 mmol/L (21-32) Anion Gap 4 (6-14) Blood Urea Nitrogen 11 mg/dL (8-26) Creatinine 0.8 mg/dL (0.7-1.3) Estimated GFR (Cockcroft-Gault) 104.5 Glucose Level 189 mg/dL (70-99) Calcium Level 8.0 mg/dL (8.5-10.1) Test 11/28/16 07:13 11/28/16 11:36 11/28/16 21:26 11/29/16 03:30 Glucose (Fingerstick) 124 mg/dL (70-99) 188 mg/dL (70-99) 136 mg/dL (70-99) White Blood Count 15.5 x10^3/uL (4.0-11.0) Red Blood Count 3.59 x10^6/uL (4.30-5.70) Hemoglobin 10.4 g/dL (13.0-17.5) Hematocrit 31.7 % (39.0-53.0) Mean Corpuscular Volume 88 fL (79-100) Mean Corpuscular Hemoglobin 29 pg (25-35) Mean Corpuscular Hemoglobin Concent 33 g/dL (31-37) Red Cell Distribution Width 13.7 % (11.5-14.5) Platelet Count 376 x10^3/uL (140-400) Neutrophils (%) (Auto) 70 % (31-73) Lymphocytes (%) (Auto) 21 % (24-48) Monocytes (%) (Auto) 9 % (0-9) Eosinophils (%) (Auto) 0 % (0-3) Basophils (%) (Auto) 0 % (0-3) Neutrophils # (Auto) 10.8 x10^3uL (1.8-7.7) Lymphocytes # (Auto) 3.2 x10^3/uL (1.0-4.8) Monocytes # (Auto) 1.3 x10^3/uL (0.0-1.1) Eosinophils # (Auto) 0.0 x10^3/uL (0.0-0.7) Basophils # (Auto) 0.1 x10^3/uL (0.0-0.2) Sodium Level 138 mmol/L (136-145) Potassium Level 4.0 mmol/L (3.5-5.1) Chloride Level 102 mmol/L (98-107) Carbon Dioxide Level 27 mmol/L (21-32) Anion Gap 9 (6-14) Blood Urea Nitrogen 9 mg/dL (8-26) Creatinine 0.8 mg/dL (0.7-1.3) Estimated GFR (Cockcroft-Gault) 104.5 Glucose Level 145 mg/dL (70-99) Calcium Level 8.5 mg/dL (8.5-10.1) Test 11/29/16 07:37 Glucose (Fingerstick) 121 mg/dL (70-99) Laboratory Tests Test 11/28/16 11:36 11/28/16 21:26 11/29/16 03:30 11/29/16 07:37 Glucose (Fingerstick) 188 mg/dL (70-99) 136 mg/dL (70-99) 121 mg/dL (70-99) White Blood Count 15.5 x10^3/uL (4.0-11.0) Red Blood Count 3.59 x10^6/uL (4.30-5.70) Hemoglobin 10.4 g/dL (13.0-17.5) Hematocrit 31.7 % (39.0-53.0) Mean Corpuscular Volume 88 fL (79-100) Mean Corpuscular Hemoglobin 29 pg (25-35) Mean Corpuscular Hemoglobin Concent 33 g/dL (31-37) Red Cell Distribution Width 13.7 % (11.5-14.5) Platelet Count 376 x10^3/uL (140-400) Neutrophils (%) (Auto) 70 % (31-73) Lymphocytes (%) (Auto) 21 % (24-48) Monocytes (%) (Auto) 9 % (0-9) Eosinophils (%) (Auto) 0 % (0-3) Basophils (%) (Auto) 0 % (0-3) Neutrophils # (Auto) 10.8 x10^3uL (1.8-7.7) Lymphocytes # (Auto) 3.2 x10^3/uL (1.0-4.8) Monocytes # (Auto) 1.3 x10^3/uL (0.0-1.1) Eosinophils # (Auto) 0.0 x10^3/uL (0.0-0.7) Basophils # (Auto) 0.1 x10^3/uL (0.0-0.2) Sodium Level 138 mmol/L (136-145) Potassium Level 4.0 mmol/L (3.5-5.1) Chloride Level 102 mmol/L (98-107) Carbon Dioxide Level 27 mmol/L (21-32) Anion Gap 9 (6-14) Blood Urea Nitrogen 9 mg/dL (8-26) Creatinine 0.8 mg/dL (0.7-1.3) Estimated GFR (Cockcroft-Gault) 104.5 Glucose Level 145 mg/dL (70-99) Calcium Level 8.5 mg/dL (8.5-10.1) Microbiology 11/23/16 Blood Culture - Preliminary, Resulted NO GROWTH AFTER 4 DAYS 11/26/16 Gram Stain - Final, Complete Medications Current Medications Sodium Chloride 1,000 ml @ 1,000 mls/hr Q1H IV Last administered on 11/23/16 18:54; Start 11/23/16 at 14:19; Stop 11/23/16 at 15:18; Status DC Vancomycin HCl (Vanco Per Pharmacy) 1 each PRN DAILY PRN MC SEE COMMENTS; Start 11/23/16 at 15:00; Stop 11/23/16 at 17:58; Status DC Vancomycin HCl 2 gm/Sodium Chloride 500 ml @ 250 mls/hr 1X ONCE IV Last administered on 11/23/16 15:40; Start 11/23/16 at 15:00; Stop 11/23/16 at 16:59 ; Status DC Ondansetron HCl (Zofran) 4 mg PRN Q8HRS PRN IV NAUSEA/VOMITING; Start 11/23/16 at 16:00; Stop 11/23/16 at 16:55; Status DC Morphine Sulfate 2 mg PRN Q2HR PRN IV PAIN Last administered on 11/23/16 20:18 ; Start 11/23/16 at 16:00; Stop 11/24/16 at 15:59; Status DC Ondansetron HCl (Zofran) 4 mg PRN Q6HRS PRN IV NAUSEA/VOMITING Last administered on 11/23/16 17:09; Start 11/23/16 at 17:00; Stop 11/24/16 at 16:59 ; Status DC Insulin Aspart (NovoLOG) 0-9 UNITS TIDWMEALS SQ Last administered on 11/28/16 17:15; Start 11/23/16 at 17:00 Dextrose (Dextrose 50%-Water Syringe) 12.5 gm PRN Q15MIN PRN IV SEE COMMENTS; Start 11/23/16 at 17:00 Metformin HCl (Glucophage) 1,000 mg DAILYWBKFT PO Last administered on 08:45; Start 11/24/16 at 08:00; Stop 11/25/16 at 15:10; Status DC Oxycodone/ Acetaminophen (Percocet 5/325) 1 tab PRN Q4HRS PRN PO PAIN Last administered on 11/29/16 07:25; Start 11/23/16 at 17:00 Glipizide (Glucotrol) 10 mg BIDBFRMEAL PO Last administered on 11/29/16 07:26 ; Start 11/24/16 at 07:30 Potassium Chloride (Klor-Con) 40 meq 1X ONCE PO Last administered on 18:56; Start 11/23/16 at 18:00; Stop 11/23/16 at 18:01; Status DC Linezolid 300 ml @ 300 mls/hr Q12HR IV Last administered on 11/29/16 09:17; Start 11/23/16 at 19:00 Potassium Chloride (Klor-Con) 40 meq 1X ONCE PO ; Start 11/24/16 at 06:00; Stop 11/24/16 at 06:01; Status Cancel Potassium Chloride (Klor-Con) 40 meq DAILYWBKFT PO Last administered on 07:25; Start 11/25/16 at 08:00 Potassium Chloride (Klor-Con) 40 meq 1X ONCE PO Last administered on 06:32; Start 11/24/16 at 06:30; Stop 11/24/16 at 06:31; Status DC Potassium Chloride (Klor-Con) 40 meq 1X ONCE PO Last administered on 11:38; Start 11/24/16 at 10:30; Stop 11/24/16 at 10:31; Status DC Potassium Chloride (Klor-Con) 40 meq 1X ONCE PO Last administered on 14:59; Start 11/24/16 at 13:30; Stop 11/24/16 at 13:31; Status DC Hydromorphone HCl 30 ml @ 0 mls/hr CONT PRN PRN IV PROTOCOL Last administered on 11/27/16 21:37; Start 11/24/16 at 14:00; Stop 11/28/16 at 12:35; Status DC Acetaminophen (Tylenol) 650 mg PRN Q6HRS PRN PO MILD PAIN / TEMP Last administered on 11/24/16 23:32; Start 11/24/16 at 23:15 Non-Formulary Medication 1 ea DAILY08 PO Last administered on 11/29/16 07:26; Start 11/26/16 at 08:00 Iohexol (Omnipaque 300 Mg/ml) 75 ml 1X ONCE IV Last administered on 11/25/16 17:44; Start 11/25/16 at 15:15; Stop 11/25/16 at 15:16; Status DC Info (Do NOT chart on this entry -- for MONITORING) 1 each PRN DAILY PRN MC SEE COMMENTS; Start 11/25/16 at 15:15; Stop 11/27/16 at 15:14; Status DC Metformin HCl (Glucophage) 1,000 mg DAILYWBKFT PO Last administered on 07:25; Start 11/28/16 at 08:00 Ondansetron HCl (Zofran) 4 mg PRN Q6HRS PRN IV NAUSEA/VOMITING; Start 11/26/16 at 12:30; Stop 11/27/16 at 12:29; Status DC Fentanyl Citrate (Fentanyl 2ml Vial) 25 mcg PRN Q5MIN PRN IV MILD PAIN; Start 11/26/16 at 12:30; Stop 11/27/16 at 12:29; Status DC Fentanyl Citrate (Fentanyl 2ml Vial) 50 mcg PRN Q5MIN PRN IV MODERATE PAIN; Start 11/26/16 at 12:30; Stop 11/27/16 at 12:29; Status DC Morphine Sulfate 1 mg PRN Q10MIN PRN IV SEVERE PAIN; Start 11/26/16 at 12:30; Stop 11/27/16 at 12:29; Status DC Ringer's Solution 1,000 ml @ 30 mls/hr Q24H IV ; Start 11/26/16 at 12:26; Stop 11/27/16 at 00:25; Status DC Lidocaine HCl (Xylocaine-Mpf 1% Vial) 2 ml 1X PRN PRN ID IV START; Start at 12:30; Stop 11/27/16 at 12:29; Status DC Hydromorphone HCl (Dilaudid) 0.5 mg PRN Q10MIN PRN IV SEV PAIN, Second choice Last administered on 11/26/16 16:57; Start 11/26/16 at 12:30; Stop 11/27/16 at 12:29; Status DC Prochlorperazine Edisylate (Compazine) 5 mg PACU PRN PRN IV NAUSEA, MRX1; Start 11/26/16 at 12:30; Stop 11/27/16 at 12:29; Status DC Propofol 20 ml @ As Directed STK-MED ONCE IV ; Start 11/26/16 at 12:59; Stop at 13:00; Status DC Dexamethasone Sodium Phosphate (Decadron) 20 mg STK-MED ONCE .ROUTE ; Start 11/26/16 at 12:59; Stop 11/26/16 at 13:00; Status DC Lidocaine HCl (Lidocaine Pf 2% Vial) 5 ml STK-MED ONCE .ROUTE ; Start 11/26/16 at 12:59; Stop 11/26/16 at 13:00; Status DC Ondansetron HCl (Zofran) 4 mg STK-MED ONCE .ROUTE ; Start 11/26/16 at 12:59; Stop 11/26/16 at 13:00; Status DC Fentanyl Citrate (Fentanyl 2ml Vial) 100 mcg STK-MED ONCE .ROUTE ; Start at 12:59; Stop 11/26/16 at 13:00; Status DC Sevoflurane (Ultane) 30 ml STK-MED ONCE IH ; Start 11/26/16 at 13:01; Stop 11/26 at 13:03; Status DC Bupivacaine HCl/ Epinephrine Bitart (Marcaine-Epi 0.5%-1:[id number]) 50 ml STK-MED ONCE .ROUTE ; Start 11/26/16 at 12:30; Stop 11/26/16 at 13:30; Status DC Phenylephrine HCl 1 mg STK-MED ONCE IV ; Start 11/26/16 at 14:16; Stop 11/26/16 at 14:17; Status DC Fentanyl Citrate (Fentanyl 2ml Vial) 100 mcg STK-MED ONCE .ROUTE ; Start at 14:58; Stop 11/26/16 at 14:59; Status DC Sevoflurane (Ultane) 60 ml STK-MED ONCE IH ; Start 11/26/16 at 15:16; Stop 11/26 at 15:17; Status DC Lidocaine/Sodium Bicarbonate (Buffered Lidocaine 1%) 20 ml STK-MED ONCE IJ ; Start 11/28/16 at 13:49; Stop 11/28/16 at 13:50; Status DC Heparin Sodium/ Sodium Chloride 500 ml @ As Directed STK-MED ONCE .ROUTE ; Start 11/28/16 at 13:49; Stop 11/28/16 at 13:50; Status DC Lidocaine/Sodium Bicarbonate (Buffered Lidocaine 1%) 3 ml 1X ONCE IJ Last administered on 11/28/16 14:39; Start 11/28/16 at 14:30; Stop 11/28/16 at 14:31 ; Status DC Heparin Sodium/ Sodium Chloride 60 unit 1X ONCE IV Last administered on 14:40; Start 11/28/16 at 14:30; Stop 11/28/16 at 14:31; Status DC Active Scripts Active Glipizide 10 Mg Tablet 1 Tab PO BID Metformin Hcl 1,000 Mg Tablet 1,000 Mg PO DAILYWBKFT Keflex (Cephalexin) 500 Mg Capsule 1 Cap PO TID Oxycodone-Acetaminophen 5-325 (Oxycodone Hcl/Acetaminophen) 1 Each Tablet 1-2 Tab PO PRN Q4HRS PRN Vitals/I & O Vital Sign - Last 24 Hours 11/28/16 11/28/16 11/28/16 11/28/16 14:54 19:11 19:50 20:00 Temp 98.4 98.4 Pulse 92 Resp 21 B/P (MAP) 123/73 (90) Pulse Ox 97 97 97 O2 Delivery Room Air Room Air Room Air Room Air O2 Flow Rate 2.0 2.0 11/28/16 11/28/16 11/29/16 11/29/16 23:44 23:53 02:09 07:25 Temp 97.9 98.1 97.9 98.1 Pulse 85 83 Resp 18 20 B/P (MAP) 133/73 (93) 128/72 (90) Pulse Ox 92 95 95 O2 Delivery Room Air Room Air Room Air Room Air O2 Flow Rate 2.0 11/29/16 11/29/16 11/29/16 07:33 08:00 08:25 Temp 97.9 97.9 Pulse 84 Resp 20 B/P (MAP) 120/68 (85) Pulse Ox 93 93 O2 Delivery Room Air Room Air Room Air O2 Flow Rate 2.0 2.0 Intake and Output 11/29/16 11/29/16 11/30/16 15:00 23:00 07:00 Intake Total 220 ml Balance 220 ml BUSHRA HOGAN III DO Nov 29, 2016 11:31
[2016-11-29] MEDS ORDERED: HYDROmorphone 2 MG/ML VIAL IV ONE (16:06)
[2016-11-29] MEDS: MORPHINE SULFATE 4 MG/ML DISP.SYRIN. IV PRN ×3 (19:13→23:22)
[2016-11-30] MEDS: MORPHINE SULFATE 4 MG/ML DISP.SYRIN. IV PRN ×5 (01:32→15:41)
[2016-11-30] MEDS: oxyCODONE/APAP 5/325 1 TAB TABLET PO PRN ×4 (02:50→16:23)
[2016-11-30 03:00] VITALS: BP 123/67
[2016-11-30 06:31] LABS: BASO # 0.1 x10^3/uL (0.0-0.2); BASO % 1 % (0-3); EOS % 0 % (0-3); HEMATOCRIT 32.9 % (39.0-53.0); HEMOGLOBIN 10.6 g/dL (13.0-17.5); LYMPH # 3.2 x10^3/uL (1.0-4.8); LYMPH % 18 % (24-48); MEAN CORPUSCULAR HEMOGLOBIN 29 pg (25-35); MEAN CORPUSCULAR HGB CONC 32 g/dL (31-37); MEAN CORPUSCULAR VOLUME 88 fL (79-100); MONO % 8 % (0-9); NEUT % 73 % (31-73); PLATELET COUNT 433 x10^3/uL (140-400); RED BLOOD COUNT 3.72 x10^6/uL (4.30-5.70); RED CELL DISTRIBUTION WIDTH 13.7 % (11.5-14.5)
[2016-11-30 06:45] LABS: CALCIUM 8.9 mg/dL (8.5-10.1); CREATININE 0.7 mg/dL (0.7-1.3); POTASSIUM 4.1 mmol/L (3.5-5.1)
[2016-11-30 07:35] VITALS: BP 111/77
[2016-11-30] MEDS: PRILOSEC 20 MG PO SCH (08:08)
[2016-11-30] MEDS: glipiZIDE 5 MG TABLET PO SCH ×2 (08:11→16:21)
[2016-11-30] MEDS: POTASSIUM CHLORIDE 20 MEQ TABLET.ER. PO SCH (08:12)
[2016-11-30] MEDS: INSULIN ASPART 300 UNITS/3 ML INSULN.PEN SQ SCH ×3 (08:18→16:21)
--- NOTE | 2016-11-30 08:47 | PDOC ---
MORGAN QUINTANA [employer] 11/30/16 0847: SURGICAL PROGRESS NOTE Subjective tolerating diet pretty painful vac change yesterday, required IV pain med Vital Signs Vital Signs Date Time Temp Pulse Resp B/P (MAP) Pulse Ox O2 Delivery O2 Flow Rate FiO2 11/30/16 08:06 16 99 Room Air 11/30/16 07:35 98.2 87 111/77 (88) 98.2 11/29/16 19:16 2.0 General: Alert, Oriented X3, Cooperative, No acute distress Skin: Other (vac in place) Labs Laboratory Tests Test 11/28/16 11:36 11/28/16 21:26 11/29/16 03:30 11/29/16 07:37 Glucose (Fingerstick) 188 mg/dL (70-99) 136 mg/dL (70-99) 121 mg/dL (70-99) White Blood Count 15.5 x10^3/uL (4.0-11.0) Red Blood Count 3.59 x10^6/uL (4.30-5.70) Hemoglobin 10.4 g/dL (13.0-17.5) Hematocrit 31.7 % (39.0-53.0) Mean Corpuscular Volume 88 fL (79-100) Mean Corpuscular Hemoglobin 29 pg (25-35) Mean Corpuscular Hemoglobin Concent 33 g/dL (31-37) Red Cell Distribution Width 13.7 % (11.5-14.5) Platelet Count 376 x10^3/uL (140-400) Neutrophils (%) (Auto) 70 % (31-73) Lymphocytes (%) (Auto) 21 % (24-48) Monocytes (%) (Auto) 9 % (0-9) Eosinophils (%) (Auto) 0 % (0-3) Basophils (%) (Auto) 0 % (0-3) Neutrophils # (Auto) 10.8 x10^3uL (1.8-7.7) Lymphocytes # (Auto) 3.2 x10^3/uL (1.0-4.8) Monocytes # (Auto) 1.3 x10^3/uL (0.0-1.1) Eosinophils # (Auto) 0.0 x10^3/uL (0.0-0.7) Basophils # (Auto) 0.1 x10^3/uL (0.0-0.2) Sodium Level 138 mmol/L (136-145) Potassium Level 4.0 mmol/L (3.5-5.1) Chloride Level 102 mmol/L (98-107) Carbon Dioxide Level 27 mmol/L (21-32) Anion Gap 9 (6-14) Blood Urea Nitrogen 9 mg/dL (8-26) Creatinine 0.8 mg/dL (0.7-1.3) Estimated GFR (Cockcroft-Gault) 104.5 Glucose Level 145 mg/dL (70-99) Calcium Level 8.5 mg/dL (8.5-10.1) Test 11/29/16 11:19 11/29/16 17:14 11/30/16 06:15 11/30/16 08:10 Glucose (Fingerstick) 203 mg/dL (70-99) 118 mg/dL (70-99) 169 mg/dL (70-99) White Blood Count 18.0 x10^3/uL (4.0-11.0) Red Blood Count 3.72 x10^6/uL (4.30-5.70) Hemoglobin 10.6 g/dL (13.0-17.5) Hematocrit 32.9 % (39.0-53.0) Mean Corpuscular Volume 88 fL (79-100) Mean Corpuscular Hemoglobin 29 pg (25-35) Mean Corpuscular Hemoglobin Concent 32 g/dL (31-37) Red Cell Distribution Width 13.7 % (11.5-14.5) Platelet Count 433 x10^3/uL (140-400) Neutrophils (%) (Auto) 73 % (31-73) Lymphocytes (%) (Auto) 18 % (24-48) Monocytes (%) (Auto) 8 % (0-9) Eosinophils (%) (Auto) 0 % (0-3) Basophils (%) (Auto) 1 % (0-3) Neutrophils # (Auto) 13.2 x10^3uL (1.8-7.7) Lymphocytes # (Auto) 3.2 x10^3/uL (1.0-4.8) Monocytes # (Auto) 1.5 x10^3/uL (0.0-1.1) Eosinophils # (Auto) 0.0 x10^3/uL (0.0-0.7) Basophils # (Auto) 0.1 x10^3/uL (0.0-0.2) Sodium Level 138 mmol/L (136-145) Potassium Level 4.1 mmol/L (3.5-5.1) Chloride Level 102 mmol/L (98-107) Carbon Dioxide Level 27 mmol/L (21-32) Anion Gap 9 (6-14) Blood Urea Nitrogen 11 mg/dL (8-26) Creatinine 0.7 mg/dL (0.7-1.3) Estimated GFR (Cockcroft-Gault) 122.0 Glucose Level 127 mg/dL (70-99) Calcium Level 8.9 mg/dL (8.5-10.1) Laboratory Tests Test 11/29/16 11:19 11/29/16 17:14 11/30/16 06:15 11/30/16 08:10 Glucose (Fingerstick) 203 mg/dL (70-99) 118 mg/dL (70-99) 169 mg/dL (70-99) White Blood Count 18.0 x10^3/uL (4.0-11.0) Red Blood Count 3.72 x10^6/uL (4.30-5.70) Hemoglobin 10.6 g/dL (13.0-17.5) Hematocrit 32.9 % (39.0-53.0) Mean Corpuscular Volume 88 fL (79-100) Mean Corpuscular Hemoglobin 29 pg (25-35) Mean Corpuscular Hemoglobin Concent 32 g/dL (31-37) Red Cell Distribution Width 13.7 % (11.5-14.5) Platelet Count 433 x10^3/uL (140-400) Neutrophils (%) (Auto) 73 % (31-73) Lymphocytes (%) (Auto) 18 % (24-48) Monocytes (%) (Auto) 8 % (0-9) Eosinophils (%) (Auto) 0 % (0-3) Basophils (%) (Auto) 1 % (0-3) Neutrophils # (Auto) 13.2 x10^3uL (1.8-7.7) Lymphocytes # (Auto) 3.2 x10^3/uL (1.0-4.8) Monocytes # (Auto) 1.5 x10^3/uL (0.0-1.1) Eosinophils # (Auto) 0.0 x10^3/uL (0.0-0.7) Basophils # (Auto) 0.1 x10^3/uL (0.0-0.2) Sodium Level 138 mmol/L (136-145) Potassium Level 4.1 mmol/L (3.5-5.1) Chloride Level 102 mmol/L (98-107) Carbon Dioxide Level 27 mmol/L (21-32) Anion Gap 9 (6-14) Blood Urea Nitrogen 11 mg/dL (8-26) Creatinine 0.7 mg/dL (0.7-1.3) Estimated GFR (Cockcroft-Gault) 122.0 Glucose Level 127 mg/dL (70-99) Calcium Level 8.9 mg/dL (8.5-10.1) Problem List Problems Medical Problems: (1) Cellulitis Status: Acute Assessment/Plan waiting on DC planning--IV abx, wound vac needs Problems: KRISHNA HERNÁNDEZ MD 11/30/16 1009: SURGICAL PROGRESS NOTE Assessment/Plan pt seen agree with above f/u next week Problems: MORGAN QUINTANA APRN Nov 30, 2016 08:47 KRISHNA HERNÁNDEZ MD Nov 30, 2016 10:09
[2016-11-30 11:13] VITALS: BP 98/63
--- NOTE | 2016-11-30 12:38 | PDOC ---
PROGRESS NOTES Chief Complaint Chief Complaint Cellulitis Plan: 1. wound care discussing wound vac for patient 2. DC patient to home today (11/29/16) 3. gave prescription for po pain meds to nurse 11/28/16 4. ok with plan of IV abx through PICC History of Present Illness History of Present Illness would prefer to go home against MD recommendation. Vitals Vitals Vital Signs Date Time Temp Pulse Resp B/P (MAP) Pulse Ox O2 Delivery O2 Flow Rate FiO2 11/30/16 12:22 16 99 Room Air 11/30/16 11:13 98.1 84 98/63 (75) 98.1 11/29/16 19:16 2.0 Physical Exam Physical Exam Patient awake laying supine in bed. Patient cordial and conversant with appropriate, complete responses. Wound vac in place and functioning. General: Alert, Oriented X3, Cooperative, No acute distress Heart: Regular rate, No murmurs, Other (heart sounds distant) Lungs: Clear Abdomen: Normal bowel sounds, Soft Extremities: No clubbing, No cyanosis Skin: Other (vac in place) Labs LABS Laboratory Tests Test 11/29/16 17:14 11/30/16 06:15 11/30/16 08:10 11/30/16 11:34 Glucose (Fingerstick) 118 mg/dL (70-99) 169 mg/dL (70-99) 111 mg/dL (70-99) White Blood Count 18.0 x10^3/uL (4.0-11.0) Red Blood Count 3.72 x10^6/uL (4.30-5.70) Hemoglobin 10.6 g/dL (13.0-17.5) Hematocrit 32.9 % (39.0-53.0) Mean Corpuscular Volume 88 fL (79-100) Mean Corpuscular Hemoglobin 29 pg (25-35) Mean Corpuscular Hemoglobin Concent 32 g/dL (31-37) Red Cell Distribution Width 13.7 % (11.5-14.5) Platelet Count 433 x10^3/uL (140-400) Neutrophils (%) (Auto) 73 % (31-73) Lymphocytes (%) (Auto) 18 % (24-48) Monocytes (%) (Auto) 8 % (0-9) Eosinophils (%) (Auto) 0 % (0-3) Basophils (%) (Auto) 1 % (0-3) Neutrophils # (Auto) 13.2 x10^3uL (1.8-7.7) Lymphocytes # (Auto) 3.2 x10^3/uL (1.0-4.8) Monocytes # (Auto) 1.5 x10^3/uL (0.0-1.1) Eosinophils # (Auto) 0.0 x10^3/uL (0.0-0.7) Basophils # (Auto) 0.1 x10^3/uL (0.0-0.2) Sodium Level 138 mmol/L (136-145) Potassium Level 4.1 mmol/L (3.5-5.1) Chloride Level 102 mmol/L (98-107) Carbon Dioxide Level 27 mmol/L (21-32) Anion Gap 9 (6-14) Blood Urea Nitrogen 11 mg/dL (8-26) Creatinine 0.7 mg/dL (0.7-1.3) Estimated GFR (Cockcroft-Gault) 122.0 Glucose Level 127 mg/dL (70-99) Calcium Level 8.9 mg/dL (8.5-10.1) AL AKERS MD Nov 30, 2016 12:38
[2016-11-30] MEDS ORDERED: ERTA1VIA IJ (14:51)
[2016-11-30 14:58] VITALS: BP 110/64
--- NOTE | 2016-12-03 15:47 | DS ---
DATE OF DISCHARGE: 11/30/2016 CHIEF COMPLAINT: Cellulitis. HOSPITAL COURSE: The patient is a 46-year-old gentleman who recently had been admitted briefly for I and D of a buttock abscess. This unfortunately progressed and prompted return to the hospital. Surgery was reconsulted and the I and D was extended. The wound was taken care of by Wound Care services, initially with wound VAC. Unfortunately, as the patient is self-pay, he could not afford home wound VAC and instrument was therefore discontinued prior to discharge. He, however, will follow up with intravenous antibiotics and wound packing on a daily basis at [facility] and follow up with Wound Care on an outpatient basis. PHYSICAL EXAM: VS: stble, afeb GEN: A&O, NAD CV: RRR PULM: clear ABD: BS+, obese. Buttock with long, deep incision, C/D/I. EXTR: no edema DISCHARGE DATE: 11/30/2016. DISCHARGE DIAGNOSES: Cellulitis, buttock abscess. DISCHARGE DISPOSITION: To home. DISCHARGE CONDITION: Improved. DISCHARGE MEDICATIONS: Please refer to [facility]. DISCHARGE INSTRUCTIONS: The patient will follow up daily for IV antibiotics as well as wound packing at [facility]. He will follow up with Wound [facility] here at [facility] on Saturday. AL AKERS MD DR: UR/nts JOB#: [id number] / [id number] JAKOB
== END 2016-11-30 17:06 | disposition home or self-care (01) | DRG 853 ==
LOC: ER 13:33 → 6 SOUTH 15:30 → OBSVTOIN 11-26 09:23
PROVIDERS: ADMIT Internal Medicine; ATTEND Internal Medicine
PROC: 0KBN0ZZ Excision of Right Hip Muscle, Open Approach (ICD-10-PCS; principal; 2016-11-26 14:00)
PROC: B2141ZZ Fluoroscopy of Right Heart using Low Osmolar Contrast (ICD-10-PCS; 2016-11-28)
PROC: 02H633Z Insertion of Infusion Device into Right Atrium, Percutaneous Approach (ICD-10-PCS; 2016-11-28)
DX: A41.9 Sepsis, unspecified organism (principal); E43 Unspecified severe protein-calorie malnutrition; L03.116 Cellulitis of left lower limb; E11.65 Type 2 diabetes mellitus with hyperglycemia; Z68.41 Body mass index [BMI] 40.0-44.9, adult; L02.31 Cutaneous abscess of buttock; L03.90 Cellulitis, unspecified; E66.9 Obesity, unspecified; I10 Essential (primary) hypertension; Z82.49 Family history of ischemic heart disease and other diseases of the circulatory system; Z83.3 Family history of diabetes mellitus
CPT/HCPCS: 36415; 36569; 36584; 51702; 74177; 76856; 77001; 80048; 80076; 81001; 82962; 83605; 85007; 85025; 87040; 87071; 87075; 87186; 87205; 93005; 96361; 96365; 96375; C1751; C1769; G0378; G0379; J1100; J1170; J1644; J1815; J2020; J2270; J2370; J2405; J2704; J3010; J3370; J7030; J7040; J7120; Q9967; 99285-25; J2001

== ENCOUNTER → 2017-11-12 | Outpatient (CLI) | payer OTHER ==
[~2017-11-12] MED LIST changes: +ERTA1VIA IJ; -METF-620 PO; +METF10007 PO
--- NOTE | 2017-11-12 13:31 | RAD ---
CLINICAL INDICATION: CHRONIC LOWER BACK PAIN, BILATERAL RADICULOPATHY, MUSCLE SPASMS. NO SX HX. NO PRIORS. COMPARISON: CT 11/25/2016 TECHNIQUE: Multiplanar, multisequence MR imaging of the lumbar spine without IV contrast. FINDINGS: There is mild straightening of the normal lumbar lordosis. No significant spondylolisthesis. Vertebral body heights are preserved. No evidence of abnormal marrow edema or fracture. Mild diffuse decreased T1 marrow signal likely primary conversion. Mild L4-5 intervertebral disc height loss. The conus medullaris is normal in morphology and terminates at L1-L2. At L2-L3: No significant thecal sac deformity or neural foraminal narrowing. At L3-L4: No significant thecal sac deformity or neural foraminal narrowing. At L4-L5: Trace right foraminal disc protrusion causes mild inferior right neural foraminal narrowing. Otherwise, No significant thecal sac deformity or left neural foraminal narrowing. At L5-S1: Mild facet degenerative changes results in mild bilateral neural foraminal narrowing. No definite disc herniation. No significant thecal sac deformity. IMPRESSION: 1. Mild degenerative changes at L4-5 and L5-S1 as above. 2. Mild diffuse decreased T1 marrow signal may be seen with red marrow conversion, which can be seen with smoking, anemia or obesity. Electronically signed by: Jose L Lopez MD (11/12/2017 1:28 PM) [id number]
== END | disposition home or self-care (01) ==
LOC: MRI 11:55
PROVIDERS: ATTEND Family Medicine
DX: M47.896 Other spondylosis, lumbar region (principal); M54.16 Radiculopathy, lumbar region; I10 Essential (primary) hypertension; E11.65 Type 2 diabetes mellitus with hyperglycemia; E78.00 Pure hypercholesterolemia, unspecified; Z82.49 Family history of ischemic heart disease and other diseases of the circulatory system; Z79.899 Other long term (current) drug therapy
CPT/HCPCS: 72148